=== PATIENT | male | born 1940 | race Caucasian/White ===

== ENCOUNTER 2018-07-11 08:34 | Outpatient (CLI) | payer MEDICARE, OTHER, SELFPAY ==
[2018-07-11] VITALS (8 sets, daily range): BP systolic 95–139; BP diastolic 56–77; PULSE 53–61; RESP 16–18; TEMP 35.8; O2SAT 94–100
--- NOTE | 2018-07-11 08:44 | DI.RAD.S_ITS ---
PROCEDURE: PAIN C/T INTERLAMINAR INJECT INDICATIONS: SPINAL STENOSIS FINDINGS: Fluoroscopic spot filming was performed to verify placement of spinal needles at the C6-C7 level(s), as labeled on the films. Appropriate location(s) of the needle tip(s) was confirmed by injection of iodinated contrast. Dictated by: Johnnie Olvera M.D. on 07/11/2018 at 12:39 Approved by: Johnnie Olvera M.D. on 07/11/2018 at 12:47
[2018-07-11] MEDS: MIDAZOLAM 5 MG/5 ML VIAL IV (09:39)
[2018-07-11] MEDS: IOPAMIDOL 15 ML VIAL 3 ML INJ (09:49)
[2018-07-11] MEDS: LIDOCAINE 1% 20 ML INJ 5 ML INJ (09:49)
[2018-07-11] MEDS: DEXAMETHASONE 10 MG/ML VIAL 20 MG INJ (09:49)
--- NOTE | 2018-07-11 10:00 | P.PCN_ITS ---
Procedures Date/Time Date of procedure: 07/11/18 Time of procedure: 09:59 General Procedure description: PREOP DIAGNOSIS 1. CERVICAL STENOSIS, 2. CERVICAL HNP WITH UPPER EXTREMITY RADICULAR FEATURES, POST OP DIAGNOSIS 1. CERVICAL STENOSIS, 2. CERVICAL HNP WITH UPPER EXTREMITY RADICULAR FEATURES, PROCEDURES 1. FLUORSCOPICALLY GUIDED CONTRAST CONTROLLED INTERLAMINAR EPIDURAL STEROID INJECTION - C6/7 TL AVI PHYSICIAN: DO CHULA Coppola Harsh is referred by Dr. West for treatment of Cervical HNP with Upper Extremity Paresthesias. FINDINGS Cervical Stenosis due to disc deterioration and nerve root irritation and nerve root irritation DESCRIPTION OF PROCEDURE Fluoroscopically guided, contrast-controlled C6/7 translaminar epidural steroid injection with conscious sedation. Following denial of allergy and review of potential side effects and complications, including, but not necessarily limited to, infection, allergic reaction, local tissue breakdown, temporary as well as permanent nerve injury, s troke, paralysis, and possible , the patient indicated that patient understood and agreed to proceed. An informed consent document was signed by the patient, witnessed by a nurse, and placed in the patient's chart. Additionally, other treatment options including modalities, medications, and physical therapy were reviewed with the patient. After review of previous anaesthesic history and IV conscious sedation the patient was deemed safe to proceed with todays procedure with IV conscious sedation as ASA class II designation. Safety time-out was performed to confirm patient ID, procedure to be performed and site of procedure. IV sedation was accomplished with a combination of 2mg of Versed administered by the RN after DO order, titrated to patient comfort during the course of the procedure while the patient remained responsive to all verbal commands. In the prone position, following sterile prep and drape of the cervical region, the C6/7 translaminar space was identified fluoroscopically. The skin was anesthetized via a 25-gauge 1.5-inch needle with 1% lidocaine solution. At this point, a 25-gauge, 2.5-inch short bevel spinal needle was atraumatically introduced and advanced under fluoroscopic guidance into epidural space at the C6/7 translaminar space. Depth was confirmed on lateral view. Radiological data, including multiple fluoroscopic views of the cervical spine, reveal a spinal needle at the C6/7 translaminar space. Lateral views then show placement of the needle in the epidural space. Subsequent views show contrast material flowing superiorly and inferiorly in the epidural space. DSA fluoroscopy with live contrast injection, once again, confirmed no vascular or intrathecal uptake. At this point, using loss of resistance technique with saline and air, the epidural space was entered. Following negative aspiration, injection of approximately 1.5 cc of Isovue-200 with live fluoroscopy in the AP view confirmed epidural flow in the epidural space without vascular or intrathecal uptake observed. Subsequently, a test dose of 1 cc of 1% lidocaine solution was injected and patient was observed for two minutes without signs or symptoms of complications, including abdominal pain, shortness of breath, bilateral upper or lower extremity weakness, nausea and vomiting, prior to steroid injection. At this point, 2cc or 20mg of dexamethasone was then injected without incident. The patient tolerated the procedure well without signs or symptoms of complications prior to being transferred to the recovery area for further monitoring, The patient was then transferred to the recovery area where they were observed for an appropriate period of time after the injection. The patient reported a VAS score of 6 prior to the procedure and a post-procedure VAS of 0. Total Fluoroscopy Time: 37.0 seconds Total Conscious Time: 24min POST OP INSTRUCTIONS The patient was provided a Pain Log to continue to record their response to the target-specific procedure prior to follow-up visit with the referring provider. Additionally, specific post-injection care instructions and a contact number to our office were provided if concerns arise regarding possible complications associated with the procedure are suspected. Raul Osborn, Complications: none
--- NOTE | 2018-07-11 10:29 | PC.NURSE ---
Pt returned from post procedure at 1000 awake and alert, able to move from w/c to chair with standby assist. Resumed monitoring from Angelique RAMOS.
--- NOTE | 2018-07-12 15:55 | PC.NURSE ---
Follow up call made post Cervical TL Injection. Pt reports he slept well, woke up with a headache though and took some aleve for it. Otherwise he is doing well.
== END 2018-07-11 10:21 ==
LOC: RAD 08:42
PROVIDERS: PCP Family Medicine; Visit Provider Physical Medicine & Rehabilitation
DX: M48.02 Spinal stenosis, cervical region (principal); M50.223 Other cervical disc displacement at C6-C7 level
CPT/HCPCS: 62321; 99152; J1100; J2250

== ENCOUNTER → 2018-08-11 12:40 | Outpatient (CLI) | payer MEDICARE, OTHER, SELFPAY ==
--- NOTE | 2018-08-11 12:41 | DI.RAD.S_ITS ---
PROCEDURE: XR LUMBAR SPINE MIN 4V INDICATIONS: Eval TECHNIQUE: 5 views of the lumbar spine were acquired. COMPARISON: None. FINDINGS: Bones: No fracture or focal osseous destruction. Levocurvature centered about L2. Multilevel degenerative endplate sclerosis and spurring. Diffuse facet arthropathy. Straightening of the normal lumbar lordosis. Diffuse uniform multilevel narrowing of the lumbar disc spaces Soft tissues: Overlying bowel gas pattern is normal. No suspicious soft tissue calcifications. Scattered vascular consultations project in the aorta Oblique images: No pars defects. 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 Levoscoliosis. Dictated by: Johnnie Olvera M.D. on 08/11/2018 at 14:50 Approved by: Johnnie Olvera M.D. on 08/11/2018 at 14:52
== END ==
PROVIDERS: PCP Family Medicine; Visit Provider Physical Medicine & Rehabilitation
DX: M54.5 Low back pain (principal); M51.36 Other intervertebral disc degeneration, lumbar region; M48.061 Spinal stenosis, lumbar region without neurogenic claudication; M47.816 Spondylosis without myelopathy or radiculopathy, lumbar region; M41.86 Other forms of scoliosis, lumbar region; M48.02 Spinal stenosis, cervical region; M47.22 Other spondylosis with radiculopathy, cervical region; M54.81 Occipital neuralgia; Q89.3 Situs inversus; M47.817 Spondylosis without myelopathy or radiculopathy, lumbosacral region
CPT/HCPCS: 72110; 99214

== ENCOUNTER 2019-01-28 21:39 | Emergency (ER) | payer MEDICARE, OTHER, SELFPAY ==
[2019-01-28 21:39] VITALS: BP 149/73; PULSE 67; RESP 21; TEMP 36.7; O2SAT 96; BMI 25.6
--- NOTE | 2019-01-28 21:49 | DI.US.S_ITS ---
PROCEDURE: US RETRO PERITONEAL LIMITED INDICATIONS: LLQ PAIN RADIATING TO BACK TECHNIQUE: Real-time scanning was performed of the retroperitoneal organs, with image documentation. COMPARISON: None. FINDINGS: Kidneys: Kidneys are normal in size. Right kidney measures 9.3 cm long; left kidney measures 10.6 cm long. Right renal cortical thickness is 1.0 cm; left renal cortical thickness is 1.6 cm. 1.2 cm simple cyst noted in the left kidney. No solid masses or nephrolithiasis. Mild left-sided hydronephrosis. Pancreas: Visualized portions of the pancreas are sonographically normal. Aorta: Visualized aorta is normal in caliber at 3 cm or less. Iliac arteries: Proximal common iliac arteries are normal in caliber at 2.5 cm or less. IVC: Intrahepatic inferior vena cava is patent. Miscellaneous: No free abdominal fluid. The appendix is not identified and cannot be evaluated. IMPRESSION: 1. No abdominal aortic aneurysm. 2. Mild left-sided hydronephrosis. Dictated by: Cathy Jean MD, PhD on 01/29/2019 at 8:47 Approved by: Cathy Jean MD, PhD on 01/29/2019 at 8:56
[2019-01-28 22:02] LABS: Add Manual Diff / Slide Review NO; Basophils Absolute Auto 100 /uL (0-100); Basophils Percent Auto 0.8 % (0-2); Eosinophils Absolute Auto 200 /uL (0-450); Eosinophils Percent Auto 2.4 % (2-4); Hematocrit 45.9 % (41-53); Hemoglobin 15.6 g/dL (13.5-17.5); Lymphocytes Absolute Auto 2100 /uL (1100-4500); Lymphocytes Percent Auto 30.8 % (25-40); Mean Corpuscular HGB Conc 34.1 % (30-36); Mean Corpuscular Hemoglobin 32.1 PG (26-34); Mean Corpuscular Volume 94.4 fL (80-100); Monocytes Absolute Auto 700 /uL (0-900); Neutrophils Absolute Auto 3900 /uL (1500-7000); Platelet Count 202 X10^3/uL (150-400); Red Blood Cell Count 4.86 X10^6/uL (4.5-5.9); Red Cell Distribution Width 13.8 % (11.6-14.8); White Blood Cell Count 6.9 X10^3/uL (4.5-11.0)
[2019-01-28 22:06] LABS: Prothrombin Time 11.4 SECONDS (10.1-12.7)
[2019-01-28 22:10] LABS: Blood Urea Nitrogen 28 mg/dL (9-20); Calcium 8.8 mg/dL (8.4-10.2); Carbon Dioxide 27 mmol/L (22-32); Chloride 105 mmol/L (98-107); Estimated Glomerular Filt Rate > 60.0 mL/min (>60); Glucose 114 mg/dL (80-110); HEMOLYSIS 26 (0-50); Lactate (Lactic Acid) 1.4 mmol/L (0.7-2.1); Magnesium 2.1 mg/dL (1.6-2.3); Potassium 4.4 mmol/L (3.4-5.1); Sodium 138 mmol/L (137-145)
--- NOTE | 2019-01-28 22:29 | ED.ABDPAIN ---
HPI - Abdominal Pain General Chief Complaint: Abdominal Pain Stated Complaint: ABD Pain Time Seen by Provider: 01/28/19 21:41 Source: patient and EMS Mode of arrival: EMS Limitations: no limitations History of Present Illness HPI narrative: 78-year-old male former smoker with history of thoracic aneurysm repair presents with a chief complaint of severe left lower quadrant pain and some radiation to his back. He denies fever chills nor nausea or vomiting. He denies chest pain, shortness of breath or near syncope. He denies any injury. He denies any provocation or palliation. He has had some difficulty producing a urine stream. MD complaint: abdominal pain Onset (ago): hour(s) Pain Consistency: intermittent Location: LLQ and L flank Severity: moderate Quality: stabbing and aching Relieving factors: nothing Exacerbating factors: nothing Associated symptoms: denies other symptoms Related Data Home Medications Medication Instructions Recorded Confirmed atorvastatin 80 mg tablet PO #90 tab 06/22/18 11/20/18 latanoprost 0.005 % eye drops OPHTHALMIC (EYE) #7 ml 06/22/18 11/20/18 losartan 50 mg tablet PO #90 tab 06/22/18 11/20/18 metoprolol tartrate 25 mg tablet PO #180 tab 06/22/18 11/20/18 Previous Rx's Medication Instructions Recorded celecoxib 200 mg capsule 200 mg PO DAILY #90 cap 11/20/18 tamsulosin [Flomax] 0.4 mg PO DAILY #10 cap 01/29/19 Allergies Allergy/AdvReac Type Severity Reaction Status Date / Time silver sulfadiazine Allergy Unknown Verified 08/11/18 11:47 [From Allyssa] Review of Systems Constitutional Constitutional: Denies chills, Denies fatigue, Denies fever(s), Denies frequent falls, Denies lethargy and Denies weakness Eyes Eyes: Denies change in vision, Denies eye discharge, Denies irritation and Denies loss of vision ENT Ears, Nose, Mouth, and Throat: Denies change in voice, Denies dizziness, Denies neck pain, Denies sore throat and Denies throat swelling Cardiovascular Cardiovascular: Denies chest pain, Denies irregular heart rhythm, Denies lightheadedness, Denies palpitations, Denies dyspnea, Denies dyspnea on exertion and Denies orthopnea Respiratory Respiratory: Denies cough, Denies dyspnea, Denies dyspnea on exertion and Denies wheezing Gastrointestinal Gastrointestinal: Reports abdominal pain, Denies change in bowel habits, Denies diarrhea, Denies nausea and Denies vomiting Genitourinary Genitourinary: Denies hematuria, Denies flank pain, Denies urinary incontinence and Denies urinary urgency Musculoskeletal Musculoskeletal: Denies back pain, Denies muscle weakness, Denies neck pain, Denies numbness and Denies tingling Integumentary/Breasts Skin/Breast: Denies pruritus, Denies erythema, Denies rash and Denies wounds Neurologic Neurologic: Denies behavioral changes, Denies confusion, Denies dizziness, Denies frequent falls, Denies loss of vision, Denies numbness, Denies tingling and Denies weakness Psychiatric Psychiatric: Denies anxiety, Denies behavioral changes, Denies confusion, Denies depression, Denies homicidal ideation and Denies suicidal ideation Endocrine Endocrine: Denies fatigue, Denies flushing and Denies palpitations Hematologic/Lymphatic Hematologic/Lymphatic: Denies easy bruising Allergic/Immunologic Allergic/Immunologic: Denies urticaria, Denies throat swelling and Denies wheezing [facility] Social History Smoking Status: Former smoker Social History Smoking Status: Former smoker Exam Narrative Exam Narrative: GENERAL: [78] year old patient appears stated age. Well-nourished, well-developed patient, in mild distress. HEAD: Atraumatic. Normocephalic. EYES: Pupils equal round and reactive. Extraocular motions intact. No scleral icterus. No injection or drainage. ENT: Nose without bleeding, purulent drainage. Throat without erythema, tonsillar hypertrophy or exudate. Airway patent. NECK: Trachea midline. Non tender CARDIOVASCULAR: Regular rate and rhythm without murmurs, gallops, or rubs. RESPIRATORY: Clear to auscultation. Breath sounds equal bilaterally. No wheezes, rales, or rhonchi. GASTROINTESTINAL: Abdomen soft, mild left lower quadrant pain, nondistended. No rebound. No Rovsing's or McBurney's. Negative heel tap. EXTREMITIES: No edema or joint tenderness. BACK: Nontender without deformity or crepitance. No flank tenderness. NEURO: AOx3. SKIN: No rash or erythema of visible areas Initial Vital Signs Initial Vital Signs: Vital Signs Temperature 98.0 F 01/28/19 21:39 Pulse Rate 67 01/28/19 21:39 Respiratory Rate 21 01/28/19 21:39 Blood Pressure 149/73 H 01/28/19 21:39 Pulse Oximetry 96 01/28/19 21:39 Course Orders Ordered: ED Orders 01/28/19 21:49 US retroperitoneal limited Stat 01/28/19 21:50 Basic Metabolic Panel Stat Complete Blood Count AUTO DIFF Stat Lactate (Lactic Acid) Stat Magnesium Stat Prothrombin Time INR Stat 01/28/19 23:05 CT abdomen pelvis w con Stat 01/28/19 23:09 Urinalysis and Microscopic Stat Discontinued Medications Tamsulosin HCl (Flomax) 0.4 mg PO NOW ONE Stop: 01/29/19 00:04 Reevaluation(s) Reevaluation #1: Patient has complete resolution of symptoms after above-stated therapies Vital Signs Vital signs: Vital Signs - 8 hr 01/28/19 21:39 01/28/19 23:47 Temperature 98.0 F 98.0 F Pulse Rate 67 62 Respiratory Rate 21 16 Blood Pressure 149/73 H Blood Pressure [Right Arm] 146/63 H Pulse Oximetry 96 96 MDM - Abdominal Pain Medical Records Attestation: I reviewed the patient's medical records. Lab Data Attestation: I reviewed the patient's lab results. Result diagrams: 01/28/19 21:50 01/28/19 21:50 Labs: Lab Results 01/28/19 01/28/19 01/28/19 Range/Units 21:50 21:50 21:50 WBC 6.9 (4.5-11.0) X10^3/uL RBC 4.86 (4.5-5.9) X10^6/uL Hgb 15.6 (13.5-17.5) g/dL Hct 45.9 (41-53) % MCV 94.4 (80-100) fL MCH 32.1 (26-34) PG MCHC 34.1 (30-36) % RDW 13.8 (11.6-14.8) % Plt Count 202 (150-400) X10^3/uL Neut % (Auto) 56.0 (50-75) % Lymph % (Auto) 30.8 (25-40) % [place] % (Auto) 10.0 (3-14) % Eos % (Auto) 2.4 (2-4) % Baso % (Auto) 0.8 (0-2) % Neut # (Auto) 3900 (9854-2788) /uL Lymph # (Auto) 2100 (4876-9972) /uL [place] # (Auto) 700 (0-900) /uL Eos # (Auto) 200 (0-450) /uL Baso # (Auto) 100 (0-100) /uL PT 11.4 (10.1-12.7) SECONDS INR 1.0 (0.9-1.3) Sodium 138 (137-145) mmol/L Potassium 4.4 (3.4-5.1) mmol/L Chloride 105 (98-107) mmol/L Carbon Dioxide 27 (22-32) mmol/L BUN 28 H (9-20) mg/dL Creatinine 1.00 (0.66-1.25) mg/dL Estimated GFR > 60.0 (>60) mL/min BUN/Creatinine Ratio 28.0 H (6-22) Glucose 114 H (80-110) mg/dL Lactate (0.7-2.1) mmol/L Calcium 8.8 (8.4-10.2) mg/dL Magnesium 2.1 (1.6-2.3) mg/dL Urine Color Urine Appearance Urine pH (4.5-8.0) Ur Specific [employer] (1.000-1.035) Urine Protein (Negative) Urine Glucose (UA) (Negative) g/dL Urine Ketones (NEGATIVE) Urine Occult Blood (Negative) Urine Nitrate (Negative) Urine Bilirubin (NEGATIVE) Urine Urobilinogen (0.2) E.U./dL Ur Leukocyte Esterase (NEGATIVE) Urine RBC (0-5/HPF) Urine WBC (0-5/HPF) Urine Bacteria (None) Ur Culture Indicated? 01/28/19 01/28/19 Range/Units 21:50 23:09 WBC (4.5-11.0) X10^3/uL RBC (4.5-5.9) X10^6/uL Hgb (13.5-17.5) g/dL Hct (41-53) % MCV (80-100) fL MCH (26-34) PG MCHC (30-36) % RDW (11.6-14.8) % Plt Count (150-400) X10^3/uL Neut % (Auto) (50-75) % Lymph % (Auto) (25-40) % [place] % (Auto) (3-14) % Eos % (Auto) (2-4) % Baso % (Auto) (0-2) % Neut # (Auto) (7239-8197) /uL Lymph # (Auto) (3327-2400) /uL [place] # (Auto) (0-900) /uL Eos # (Auto) (0-450) /uL Baso # (Auto) (0-100) /uL PT (10.1-12.7) SECONDS INR (0.9-1.3) Sodium (137-145) mmol/L Potassium (3.4-5.1) mmol/L Chloride (98-107) mmol/L Carbon Dioxide (22-32) mmol/L BUN (9-20) mg/dL Creatinine (0.66-1.25) mg/dL Estimated GFR (>60) mL/min BUN/Creatinine Ratio (6-22) Glucose (80-110) mg/dL Lactate 1.4 (0.7-2.1) mmol/L Calcium (8.4-10.2) mg/dL Magnesium (1.6-2.3) mg/dL Urine Color Yellow Urine Appearance Clear Urine pH 6.0 (4.5-8.0) Ur Specific [employer] 1.010 (1.000-1.035) Urine Protein Negative (Negative) Urine Glucose (UA) Negative (Negative) g/dL Urine Ketones Negative (NEGATIVE) Urine Occult Blood 3+ H (Negative) Urine Nitrate Negative (Negative) Urine Bilirubin Negative (NEGATIVE) Urine Urobilinogen 0.2 (0.2) E.U./dL Ur Leukocyte Esterase Negative (NEGATIVE) Urine RBC 5-10/hpf H (0-5/HPF) Urine WBC None seen (0-5/HPF) Urine Bacteria None seen (None) Ur Culture Indicated? Cult not indicated Imaging Data CT scan - abdomen: Radiologist's impression: Obstructing left UVJ 4 mm stone with mild left hydro Discharge Plan Departure Patient Disposition: Home Clinical Impression: Kidney stone on left side Instructions: Kidney Stones -- Adult Activity Restrictions/Additional Instructions: *You have been diagnosed with [4 mm left-sided kidney stone] *What to do: *Take medications as directed: a prescription for Flomax was electronically transmitted to [facility] in [place] at your request *Follow up with your primary care provider in 2-3 days, call for an appointment. Let them know you were seen in the Emergency Department and that we ask that you be seen in follow up *Return to ER if you should have any new, worsening or concerning symptoms Prescriptions: New tamsulosin [Flomax] 0.4 mg capsule 0.4 mg PO DAILY Qty: 10 RF: 0 No Action atorvastatin 80 mg tablet PO Qty: 90 RF: 0 losartan 50 mg tablet PO Qty: 90 RF: 0 metoprolol tartrate 25 mg tablet PO Qty: 180 RF: 0 latanoprost 0.005 % drops ophthalmic (eye) Qty: 7 RF: 0 celecoxib [Celebrex] 200 mg capsule 200 mg PO DAILY Qty: 90 RF: 2 Referrals: Jamilah West DO [Primary Care Provider] -
--- NOTE | 2019-01-28 23:05 | DI.CT.S_ITS ---
PROCEDURE: CT ABDOMEN PELVIS W CON INDICATIONS: severe LLQ pain TECHNIQUE: After the administration of intravenous contrast, 5 mm thick sections acquired from the diaphragm to the symphysis. 5 mm coronal and sagittal reformats were acquired. For radiation dose reduction, the following was used: automated exposure control, adjustment of mA and/or kV according to patient size. COMPARISON: CT pulmonary angiogram 03/30/2018, CT abdomen and pelvis 08/07/2015. FINDINGS: Image quality: Excellent. ABDOMEN: Lung bases: Lung bases are clear. Findings of situs inversus. No pericardial effusion. Solid organs: Liver is left-sided. No suspicious focal lesion. Multiple small hepatic cysts a similar to 2016. Gallbladder is normal. Biliary system is non dilated. Pancreas enhances normally. Spleen is normal in size and enhancement. Punctate splenic granuloma. Small splenule. No adrenal nodules. Left UVJ kidney stone measuring 4 mm with mild hydroureteronephrosis. Question of left ureterocele or pseudoureterocele. Additionally there is a 4 mm left kidney stone and 3 mm right kidney stone which are nonobstructing. Peritoneum and bowel: Calcifications in the region of the gastric cardia likely due to prior hernia repair. Small retrocardiac. Bowel loops demonstrate normal wall thickness and caliber. No free fluid or air. Nodes and vessels: No retroperitoneal or mesenteric adenopathy by size criteria. Aorta and inferior vena cava are normal in size. Moderate calcified atherosclerotic plaque of the abdominal aorta. Miscellaneous: No ventral hernias. PELVIS: Genitourinary: Bladder is unremarkable. Miscellaneous: No inguinal hernias or adenopathy. Left groin surgical clips from prior hernia repair. Bones: No suspicious bony lesions. Mild scoliosis. Moderate DDD. No vertebral body compression fractures. IMPRESSION: 1. A 4 mm obstructing calculus at the left UVJ with mild hydroureteronephrosis. 2. Additional nonobstructing kidney stones bilaterally. 3. Situs inversus. This report is concordant with the overnight preliminary interpretation. Dictated by: Jake Santo M.D. on 01/29/2019 at 8:02 Approved by: Jake Santo M.D. on 01/29/2019 at 8:14
[2019-01-28 23:23] LABS: Bacteria Urine None Seen; WBC Urine None Seen (0-5/HPF)
[2019-01-28 23:24] LABS: Appearance Urine UA CLEAR; Bilirubin Urine UA NEGATIVE (NEGATIVE); Color Urine UA YELLOW; Glucose Urine UA NEGATIVE (Negative); Ketones Urine UA NEGATIVE (NEGATIVE); Leukocyte Esterase Urine UA NEGATIVE (NEGATIVE); Nitrite Urine UA NEGATIVE (Negative); Occult Blood Urine UA 3+ (Negative); Protein Urine UA NEGATIVE (Negative); Urobilinogen Urine UA 0.2 E.U./dL (0.2)
[2019-01-28 23:38] LABS: Culture Indicated Urine Cult Not Indicated; RBC Urine 5-10/HPF (0-5/HPF)
[2019-01-28 23:47] VITALS: BP 146/63; PULSE 62; RESP 16; TEMP 36.7; O2SAT 96
--- NOTE | 2019-01-28 23:47 | PC.NURSE ---
Assuming care of patient as of 2329. Patient alert and oriented x4, sitting up on stretcher speaking with son. Pt reports pain is intermittent and he currently is pain free 0/10 and not nauseated. Denies needs at this time. Awaiting CT results.
[2019-01-29] MEDS: TAMSULOSIN 0.4 MG CAPSULE PO (00:10)
[2019-01-29 00:25] VITALS: BP 139/73; PULSE 70; RESP 16; O2SAT 98
--- NOTE | 2019-01-29 00:27 | PC.NURSE ---
Patient given urinal and strainer and urine cup. Instructed on straining urine and to try to save the stone if possible to take to PCP. Verbalizes understanding. Pt ambulatory from ED with steady gait, pain free.
== END 2019-01-29 00:27 | disposition home or self-care (01) ==
PROVIDERS: Emergency Provider Emergency Medicine; PCP Family Medicine
DX: N20.0 Calculus of kidney (principal)
CPT/HCPCS: 36415; 74177; 76775; 80048; 81001; 83605; 83735; 85025; 85610; 99283; 99284; Q9967

== ENCOUNTER 2019-10-06 03:56 | Emergency (ER) | payer MEDICARE, OTHER, SELFPAY ==
[2019-10-06 04:02] VITALS: BP 142/68; PULSE 92; RESP 22; TEMP 37.6; O2SAT 96; BMI 25.2
--- NOTE | 2019-10-06 04:04 | DI.RAD.S_ITS ---
PROCEDURE: XR ACUTE ABDOMEN SERIES INDICATIONS: Abdominal pain TECHNIQUE: One view chest and two views of the abdomen were acquired. COMPARISON: [facility], CT, CT CHEST ABD PEL W CON, 10/06/2019, 6:01. FINDINGS: Surgical changes and devices: Median sternotomy changes are present. 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 The gastric bubble is seen within the right upper quadrant. The liver appears to be present within the left upper quadrant. The lungs are well aerated. No definite pulmonary consolidation is evident. The heart is borderline enlarged. Abdomen: Multiple air filled the bowel loops are seen within the abdomen. However, the air filled bowel loops that are felt to represent small bowel do not measure greater than 3 cm in diameter. Air and stool are seen within the colon. No suspicious calcifications. Visualized solid organ contours appear normal. Bones: No suspicious bony lesions. IMPRESSION: 1. Nonspecific bowel gas pattern without evidence of obstruction. 2. Situs inversus. 3. No acute cardiopulmonary process is appreciated. Dictated by: Geovani Ba M.D. on 10/06/2019 at 8:46 Approved by: Geovani Ba M.D. on 10/06/2019 at 8:50
--- NOTE | 2019-10-06 04:06 | ED.ABDPAIN ---
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 He states that it is becoming more intense in severity and duration. He states it is worse when he moves and improves with rest. He is nauseated and has decreased appetite but denies any vomiting. He states he had a bowel movement earlier it was not significantly abnormal. He has been passing gas without trouble. He denies any trouble urinating. He states he has felt chills and had subjective fever. He denies runny nose, sore throat or cough. Denies chest pain or shortness of breath. MD complaint: abdominal pain Onset (ago): day(s) Pain Consistency: intermittent Location: [facility] Severity: severe Quality: cramping and aching Relieving factors: rest Exacerbating factors: movement Related Data Home Medications Medication Instructions Recorded Confirmed atorvastatin 80 mg tablet PO #90 tab 06/22/18 11/20/18 latanoprost 0.005 % eye drops OPHTHALMIC (EYE) #7 ml 06/22/18 11/20/18 losartan 50 mg tablet PO #90 tab 06/22/18 11/20/18 metoprolol tartrate 25 mg tablet PO #180 tab 06/22/18 11/20/18 Previous Rx's Medication Instructions Recorded celecoxib 200 mg capsule 200 mg PO DAILY #90 cap 11/20/18 tamsulosin [Flomax] 0.4 mg PO DAILY #10 cap 01/29/19 Allergies Allergy/AdvReac Type Severity Reaction Status Date / Time silver sulfadiazine Allergy Unknown Verified 08/11/18 11:47 [From Allyssa] Review of Systems Constitutional Constitutional: Reports chills, Reports fatigue, Denies fever(s), Denies frequent falls, Denies lethargy and Denies weakness Eyes Eyes: Denies change in vision, Denies eye discharge, Denies irritation and Denies loss of vision ENT Ears, Nose, Mouth, and Throat: Denies change in voice, Denies dizziness, Denies neck pain, Denies sore throat and Denies throat swelling Cardiovascular Cardiovascular: Denies chest pain, Denies irregular heart rhythm, Denies lightheadedness, Denies palpitations, Denies dyspnea, Denies dyspnea on exertion and Denies orthopnea Respiratory Respiratory: Denies cough, Denies dyspnea, Denies dyspnea on exertion and Denies wheezing Gastrointestinal Gastrointestinal: Denies abdominal pain, Denies change in bowel habits, Denies diarrhea, Reports nausea and Denies vomiting Musculoskeletal Musculoskeletal: Denies neck pain and Denies numbness Integumentary/Breasts Skin/Breast: Denies pruritus, Denies erythema, Denies rash and Denies wounds Neurologic Neurologic: Denies behavioral changes, Denies confusion, Denies dizziness, Denies frequent falls, Denies loss of vision, Denies numbness and Denies weakness Psychiatric Psychiatric: Denies anxiety, Denies behavioral changes, Denies confusion, Denies depression, Denies homicidal ideation and Denies suicidal ideation Endocrine Endocrine: Reports fatigue, Denies flushing and Denies palpitations Hematologic/Lymphatic Hematologic/Lymphatic: Denies easy bruising Allergic/Immunologic Allergic/Immunologic: Denies urticaria, Denies throat swelling and Denies wheezing Patient History Social History Smoking Status: Former smoker Smoking Status: Former smoker alcohol intake frequency: a few times a week Substance Use Type: does not use Exam Narrative Exam Narrative: GENERAL: [79] year old patient appears stated age. Well-nourished, well-developed patient, in moderate distress, holding an emesis bag HEAD: Atraumatic. Normocephalic. EYES: Pupils equal round and reactive. Extraocular motions intact. No scleral icterus. No injection or drainage. ENT: Nose without bleeding, purulent drainage. Throat without erythema, tonsillar hypertrophy or exudate. Airway patent. NECK: Trachea midline. Non tender CARDIOVASCULAR: Regular rate and rhythm without murmurs, gallops, or rubs. RESPIRATORY: Clear to auscultation. Breath sounds equal bilaterally. No wheezes, rales, or rhonchi. GASTROINTESTINAL: Abdomen soft, general tenderness, distended, decreased BS EXTREMITIES: No edema or joint tenderness. BACK: Nontender without deformity or crepitance. No flank tenderness. NEURO: AOx3. SKIN: No rash or erythema of visible areas Initial Vital Signs Initial Vital Signs: Vital Signs Temperature 99.6 F 10/06/19 04:02 Pulse Rate 92 H 10/06/19 04:02 Respiratory Rate 22 10/06/19 04:02 Blood Pressure 142/68 H 10/06/19 04:02 Pulse Oximetry 96 10/06/19 04:02 Course Orders Ordered: Discontinued Medications Hydromorphone HCl (Dilaudid) 0.5 mg IV NOW ONE Stop: 10/06/19 04:02 Last Admin: 10/06/19 04:12 Dose: 0.5 mg Documented by: FE Hydromorphone HCl (Dilaudid) 0.5 mg IV NOW ONE Stop: 10/06/19 06:33 Last Admin: 10/06/19 06:36 Dose: 0.5 mg Documented by: FE Sodium Chloride (Normal Saline 0.9%) 2,328 mls @ 776 mls/hr 30 ml/kg infuse over 3 hr (2328 ml) IV NOW ONE Stop: 10/06/19 07:04 Last Infusion: 10/06/19 07:39 Dose: 0 mls/hr Documented by: Admin: 10/06/19 04:12 Dose: 776 mls/hr Documented by: FE Ondansetron HCl (Zofran) 4 mg IV Q4HR PRN PRN Reason: Nausea And Vomiting Last Admin: 10/06/19 04:12 Dose: 4 mg Documented by: FE Simethicone (Mylicon) 80 mg PO QID PRN PRN Reason: Flatulence Last Admin: 10/06/19 07:39 Dose: 80 mg Documented by: LASHANDA Vital Signs Vital signs: Vital Signs - 8 hr 10/06/19 04:02 Temperature 99.6 F Pulse Rate 92 H Respiratory Rate 22 Blood Pressure 142/68 H Pulse Oximetry 96 MDM - Abdominal Pain Lab Data Result diagrams: 10/06/19 04:35 10/06/19 04:35 Labs: Lab Results 10/06/19 10/06/19 10/06/19 Range/Units 04:20 04:20 04:35 WBC 9.7 (4.5-11.0) X10^3/uL RBC 4.48 L (4.5-5.9) X10^6/uL Hgb 14.2 (13.5-17.5) g/dL Hct 42.4 (41-53) % MCV 94.7 (80-100) fL MCH 31.7 (26-34) PG MCHC 33.5 (30-36) % RDW 13.1 (11.6-14.8) % Plt Count 218 (150-400) X10^3/uL Neut % (Auto) 84.3 H (50-75) % Lymph % (Auto) 4.7 L (25-40) % [place] % (Auto) 10.0 (3-14) % Eos % (Auto) 0.6 L (2-4) % Baso % (Auto) 0.4 (0-2) % Neut # (Auto) 8200 H (8206-4874) /uL Lymph # (Auto) 500 L (0822-0419) /uL [place] # (Auto) 1000 H (0-900) /uL Eos # (Auto) 100 (0-450) /uL Baso # (Auto) 0 (0-100) /uL PT 14.1 H (10.1-12.7) SECONDS INR 1.2 (0.9-1.3) Sodium (137-145) mmol/L Potassium (3.4-5.1) mmol/L Chloride (98-107) mmol/L Carbon Dioxide (22-32) mmol/L BUN (9-20) mg/dL Creatinine (0.66-1.25) mg/dL Estimated GFR (>60) mL/min BUN/Creatinine Ratio (6-22) Glucose (80-110) mg/dL Lactate 1.1 (0.7-2.1) mmol/L Calcium (8.4-10.2) mg/dL Total Bilirubin (0.2-1.3) mg/dL AST (17-59) IU/L ALT (<50) IU/L Alkaline Phosphatase (38-126) U/L Total Creatine Kinase (55-170) U/L CK-MB (CK-2) CK-MB (CK-2) Rel Index Troponin I (0.01-0.034) ng/mL Total Protein (6.3-8.2) g/dL Albumin (3.5-5.0) g/dL Globulin (1.7-4.1) g/dL Albumin/Globulin Ratio (1.0-2.8) Procalcitonin (<0.5) ng/mL 10/06/19 10/06/19 10/06/19 Range/Units 04:35 04:35 04:35 WBC (4.5-11.0) X10^3/uL RBC (4.5-5.9) X10^6/uL Hgb (13.5-17.5) g/dL Hct (41-53) % MCV (80-100) fL MCH (26-34) PG MCHC (30-36) % RDW (11.6-14.8) % Plt Count (150-400) X10^3/uL Neut % (Auto) (50-75) % Lymph % (Auto) (25-40) % [place] % (Auto) (3-14) % Eos % (Auto) (2-4) % Baso % (Auto) (0-2) % Neut # (Auto) (8736-0506) /uL Lymph # (Auto) (7984-0312) /uL [place] # (Auto) (0-900) /uL Eos # (Auto) (0-450) /uL Baso # (Auto) (0-100) /uL PT (10.1-12.7) SECONDS INR (0.9-1.3) Sodium 136 L (137-145) mmol/L Potassium 3.8 (3.4-5.1) mmol/L Chloride 107 (98-107) mmol/L Carbon Dioxide 20 L (22-32) mmol/L BUN 27 H (9-20) mg/dL Creatinine 0.99 (0.66-1.25) mg/dL Estimated GFR > 60.0 (>60) mL/min BUN/Creatinine Ratio 27.3 H (6-22) Glucose 139 H (80-110) mg/dL Lactate (0.7-2.1) mmol/L Calcium 8.6 (8.4-10.2) mg/dL Total Bilirubin 1.4 H (0.2-1.3) mg/dL AST 25 (17-59) IU/L ALT 19 (<50) IU/L Alkaline Phosphatase 77 (38-126) U/L Total Creatine Kinase 79 (55-170) U/L CK-MB (CK-2) TNP CK-MB (CK-2) Rel Index TNP Troponin I < 0.012 (0.01-0.034) ng/mL Total Protein 7.0 (6.3-8.2) g/dL Albumin 3.8 (3.5-5.0) g/dL Globulin 3.2 (1.7-4.1) g/dL Albumin/Globulin Ratio 1.2 (1.0-2.8) Procalcitonin 0.05 (<0.5) ng/mL Imaging Data Abdominal x-ray: Attestation: I personally reviewed and interpreted this imaging study as follows: My Impression: Non specific bowel gas pattern Radiologist's Impression: Harsh Galeana 79 M [address] [address] XRay Report Signed Patient: Harsh Galeana MMR#: [id number] : 9Acct:[id number] Age/Sex: 79 / MDate of Service: 10/06/19 Loc: ED Accession Number: [id number] Procedure: XR acute abdomen series Ordering Provider: Kostas Purvis D.O. PROCEDURE: XR ACUTE ABDOMEN SERIES INDICATIONS: Abdominal pain TECHNIQUE: One view chest and two views of the abdomen were acquired. COMPARISON: [facility], CT, CT CHEST ABD PEL W CON, 10/06/2019, 6:01. FINDINGS: Surgical changes and devices: Median sternotomy changes are present. 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 The gastric bubble is seen within the right upper quadrant. The liver appears to be present within the left upper quadrant. The lungs are well aerated. No definite pulmonary consolidation is evident. The heart is borderline enlarged. Abdomen: Multiple air filled the bowel loops are seen within the abdomen. However, the air filled bowel loops that are felt to represent small bowel do not measure greater than 3 cm in diameter. Air and stool are seen within the colon. No suspicious calcifications. Visualized solid organ contours appear normal. Bones: No suspicious bony lesions. IMPRESSION: 1. Nonspecific bowel gas pattern without evidence of obstruction. 2. Situs inversus. 3. No acute cardiopulmonary process is appreciated. Dictated by: Geovani Ba M.D. on 10/06/2019 at 8:46 Approved by: Geovani Ba M.D. on 10/06/2019 at 8:50 CT scan - abdomen/pelvis: Radiologist's Impression: Chart Viewer Diagnostics DATE TYPE STATUS REF RANGE/AUTHOR Hx 10/06/19 04:28 Geovani Ba 10/06/19 04:04 Mejia,Geovani 01/28/19 23:05 Ezio Santon 01/28/19 21:49 TedCathy 08/11/18 12:41 OlveraJohnnie 07/11/18 08:44 Johnnie Olvera Charles M 79, M0 1940 DEP ER, [facility] ED 182.88cm 84.5kg BMI: 25.3kg/m? Abdominal Pain Search Chart No Data to Display ONSET 10/06/19 07:51 Harsh Galeana 79 M 1940 [place] [address] CT Scan Report Signed Patient: Harsh Galeana MMR#: [id number] : 9Acct:[id number] Age/Sex: 79 / MDate of Service: 10/06/19 Loc: ED Accession Number: [id number] Procedure: CT chest abd pel w con Ordering Provider: Kostas Purvis D.O. PROCEDURE: CT CHEST ABD PEL W CON INDICATIONS: severe abdominal pain TECHNIQUE: After the administration of oral and intravenous contrast, 5 mm thick sections acquired from the lung apices to the symphysis. 5 mm coronal and sagittal reformats were performed, with additional 7 mm coronal MIP reformats through the lungs. For radiation dose reduction, the following was used: automated exposure control, adjustment of mA and/or kV according to patient size. COMPARISON: [facility], CR, XR ACUTE ABDOMEN SERIES, 10/06/2019, 4:13. [facility], CT, CT ABDOMEN PELVIS W CON, 01/28/2019, 23:10. [facility], CT, CT ANGIO CHEST, 03/30/2018, 12:43. [facility], CT, CT ABD PELVIS W CON, 08/07/2015, 11:45. [facility], CT, THORAX WITH CONTRAST, 09/28/2013, 10:31. [facility], CT, ANGIOGRAPHY CHEST AND ABDOMEN, 05/16/2013, 18:19. [facility], CT, KUB - CT (PNL), 09/30/2011, 22:03. FINDINGS: Image quality: Diagnostic. CHEST: Lungs and pleura: There is a small left-sided pleural effusion with associated atelectasis. The degree of consolidation of the left lung is more pronounced at the left lung base. There is minimal atelectasis at the right lung base. Centrilobular emphysematous changes are noted. There is no lung mass or definite pulmonary nodule. Mediastinum: Dextrocardia with a right-sided aortic arch is present. Aneurysmal dilatation of the ascending thoracic aorta is identified measuring up to 4.8 cm in AP dimension, which is unchanged when compared to the previous exam. Aortic atherosclerosis is noted. No mediastinal mass or lymphadenopathy is evident. There is no hilar lymphadenopathy. The major airways are patent. The esophagus is grossly unremarkable. There is a moderate-sized hiatal hernia on the right. Chest wall and bones: No axillary or supraclavicular adenopathy by size criteria. Thyroid gland is not enlarged were adequately characterized on CT. Moderate multilevel degenerative changes of the spine are present. Median sternotomy changes are noted. No compression deformities of the thoracic spine are noted. 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 The liver is located on the left. The spleen is located on the right. The pancreatic head is located on the left. There are numerous subcentimeter foci of low attenuation identified within the liver, which are unchanged since the previous CT, but are not well characterized. These most likely represent hepatic cysts. The spleen and pancreas appear to be within normal limits. The adrenals are unremarkable. Bilateral nonobstructing renal calculi are present. The ureters are normal in course and caliber without intraluminal calculi present. The previously seen calculus at the left vesicoureteral junction has passed in the interim. There may be small parenchymal renal cysts. Peritoneum and bowel: There is a small hiatal hernia. The stomach is otherwise unremarkable. The stomach is noted to be positioned on the right. The small bowel loops are nondilated. A moderate amount of residual stool is identified within the colon. Colonic diverticulosis is identified without evidence of surrounding inflammation. No free fluid, loculated fluid collection or free air is appreciated. Nodes and vessels: No retroperitoneal or mesenteric adenopathy by size criteria. Aorta and inferior vena cava are normal in size. There is aortic and iliac artery atherosclerosis. Bones: No acute fracture or suspicious osseous lesion is evident. No compression deformities are identified. Moderate multilevel degenerative changes of the lumbar spine are present. There is levoconvex curvature of the lumbar spine, as well. PELVIS: Genitourinary: Bladder wall thickness is normal. Miscellaneous: No inguinal hernias or adenopathy. No free fluid or loculated fluid collection is identified. Bones: No suspicious bony lesions. No acute pelvic fractures are identified. There mild degenerative changes of the pelvic joints. IMPRESSION: 1. Situs inversus totalis. 2. Small left-sided pleural effusion with associated atelectasis. Please correlate clinically to exclude superimposed pneumonia. 3. Mild centrilobular emphysematous changes. 4. Nonobstructing bilateral renal calculi. No hydronephrosis or ureteral calculi. 5. Probable hepatic cysts, unchanged. 6. Aneurysmal dilatation of the ascending thoracic aorta appears unchanged. No evidence of dissection. 7. No bowel obstruction. 8. Colonic diverticulosis without diverticulitis. Note: The preliminary report provided by [employer] is concordant with the final report. Dictated by: Geovani Ba M.D. on 10/06/2019 at 9:01 Approved by: Geovani Ba M.D. on 10/06/2019 at 9:[address] [facility] Narrative Medical decision making narrative: Multiple etiologies for patient's symptoms considered including: [obstruction vs. infectious process vs. AAA vs. other] Patient's symptoms improved or duration of stay with above-stated therapies. Findings and discharge diagnosis discussed with patient/family followed by verbalization of understanding Return precautions discussed with patient/family whom verbalize understanding. Discharge Plan Departure Patient Disposition: Home Clinical Impression: Abdominal pain Qualifiers: Abdominal location: generalized Qualified Code(s): R10.84 - Generalized abdominal pain Discharge Date/Time: 10/06/19 08:20 Activity Restrictions/Additional Instructions: *You have been diagnosed with [acute generalized abdominal pain ] *What to do: *Take medications as directed: Simethicone can help with your gas *Follow up with your primary care provider in 2-3 days, call for an appointment. Let them know you were seen in the Emergency Department and that we ask that you be seen in follow up *Return to ER if you should have any new, worsening or concerning symptoms Prescriptions: No Action tamsulosin [Flomax] 0.4 mg capsule 0.4 mg PO DAILY Qty: 10 RF: 0 atorvastatin 80 mg tablet PO Qty: 90 RF: 0 losartan 50 mg tablet PO Qty: 90 RF: 0 metoprolol tartrate 25 mg tablet PO Qty: 180 RF: 0 latanoprost 0.005 % drops ophthalmic (eye) Qty: 7 RF: 0 celecoxib [Celebrex] 200 mg capsule 200 mg PO DAILY Qty: 90 RF: 2 Referrals: Jamilah West DO [Primary Care Provider] -
[2019-10-06] MEDS: ONDANSETRON 4 MG/2 ML INJ IV (04:12)
[2019-10-06] MEDS: SODIUM CHLORIDE 0.9% 2,328 ML 776 ML IV (04:12)
[2019-10-06] MEDS: HYDROMORPHONE 0.5 MG INJ IV ×2 (04:12→06:36)
--- NOTE | 2019-10-06 04:28 | DI.CT.S_ITS ---
PROCEDURE: CT CHEST ABD PEL W CON INDICATIONS: severe abdominal pain TECHNIQUE: After the administration of oral and intravenous contrast, 5 mm thick sections acquired from the lung apices to the symphysis. 5 mm coronal and sagittal reformats were performed, with additional 7 mm coronal MIP reformats through the lungs. For radiation dose reduction, the following was used: automated exposure control, adjustment of mA and/or kV according to patient size. COMPARISON: [facility], CR, XR ACUTE ABDOMEN SERIES, 10/06/2019, 4:13. [facility], CT, CT ABDOMEN PELVIS W CON, 01/28/2019, 23:10. [facility], CT, CT ANGIO CHEST, 03/30/2018, 12:43. [facility], CT, CT ABD PELVIS W CON, 08/07/2015, 11:45. [facility], CT, THORAX WITH CONTRAST, 09/28/2013, 10:31. [facility], CT, ANGIOGRAPHY CHEST AND ABDOMEN, 05/16/2013, 18:19. [facility], CT, KUB - CT (PNL), 09/30/2011, 22:03. FINDINGS: Image quality: Diagnostic. CHEST: Lungs and pleura: There is a small left-sided pleural effusion with associated atelectasis. The degree of consolidation of the left lung is more pronounced at the left lung base. There is minimal atelectasis at the right lung base. Centrilobular emphysematous changes are noted. There is no lung mass or definite pulmonary nodule. Mediastinum: Dextrocardia with a right-sided aortic arch is present. Aneurysmal dilatation of the ascending thoracic aorta is identified measuring up to 4.8 cm in AP dimension, which is unchanged when compared to the previous exam. Aortic atherosclerosis is noted. No mediastinal mass or lymphadenopathy is evident. There is no hilar lymphadenopathy. The major airways are patent. The esophagus is grossly unremarkable. There is a moderate-sized hiatal hernia on the right. Chest wall and bones: No axillary or supraclavicular adenopathy by size criteria. Thyroid gland is not enlarged were adequately characterized on CT. Moderate multilevel degenerative changes of the spine are present. Median sternotomy changes are noted. No compression deformities of the thoracic spine are noted. 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 The liver is located on the left. The spleen is located on the right. The pancreatic head is located on the left. There are numerous subcentimeter foci of low attenuation identified within the liver, which are unchanged since the previous CT, but are not well characterized. These most likely represent hepatic cysts. The spleen and pancreas appear to be within normal limits. The adrenals are unremarkable. Bilateral nonobstructing renal calculi are present. The ureters are normal in course and caliber without intraluminal calculi present. The previously seen calculus at the left vesicoureteral junction has passed in the interim. There may be small parenchymal renal cysts. Peritoneum and bowel: There is a small hiatal hernia. The stomach is otherwise unremarkable. The stomach is noted to be positioned on the right. The small bowel loops are nondilated. A moderate amount of residual stool is identified within the colon. Colonic diverticulosis is identified without evidence of surrounding inflammation. No free fluid, loculated fluid collection or free air is appreciated. Nodes and vessels: No retroperitoneal or mesenteric adenopathy by size criteria. Aorta and inferior vena cava are normal in size. There is aortic and iliac artery atherosclerosis. Bones: No acute fracture or suspicious osseous lesion is evident. No compression deformities are identified. Moderate multilevel degenerative changes of the lumbar spine are present. There is levoconvex curvature of the lumbar spine, as well. PELVIS: Genitourinary: Bladder wall thickness is normal. Miscellaneous: No inguinal hernias or adenopathy. No free fluid or loculated fluid collection is identified. Bones: No suspicious bony lesions. No acute pelvic fractures are identified. There mild degenerative changes of the pelvic joints. IMPRESSION: 1. Situs inversus totalis. 2. Small left-sided pleural effusion with associated atelectasis. Please correlate clinically to exclude superimposed pneumonia. 3. Mild centrilobular emphysematous changes. 4. Nonobstructing bilateral renal calculi. No hydronephrosis or ureteral calculi. 5. Probable hepatic cysts, unchanged. 6. Aneurysmal dilatation of the ascending thoracic aorta appears unchanged. No evidence of dissection. 7. No bowel obstruction. 8. Colonic diverticulosis without diverticulitis. Note: The preliminary report provided by [employer] is concordant with the final report. Dictated by: Geovani Ba M.D. on 10/06/2019 at 9:01 Approved by: Geovani Ba M.D. on 10/06/2019 at 9:09
[2019-10-06 04:36] LABS: INR 1.2 (0.9-1.3); Prothrombin Time 14.1 SECONDS (10.1-12.7)
[2019-10-06 04:40] LABS: Lactate (Lactic Acid) 1.1 mmol/L (0.7-2.1)
[2019-10-06 04:53] LABS: Add Manual Diff / Slide Review NO; Basophils Absolute Auto 0 /uL (0-100); Basophils Percent Auto 0.4 % (0-2); Eosinophils Absolute Auto 100 /uL (0-450); Eosinophils Percent Auto 0.6 % (2-4); Hematocrit 42.4 % (41-53); Hemoglobin 14.2 g/dL (13.5-17.5); Lymphocytes Absolute Auto 500 /uL (1100-4500); Lymphocytes Percent Auto 4.7 % (25-40); Mean Corpuscular HGB Conc 33.5 % (30-36); Mean Corpuscular Hemoglobin 31.7 PG (26-34); Mean Corpuscular Volume 94.7 fL (80-100); Monocytes Absolute Auto 1000 /uL (0-900); Neutrophils Absolute Auto 8200 /uL (1500-7000); Neutrophils Percent Auto 84.3 % (50-75); Platelet Count 218 X10^3/uL (150-400); Red Blood Cell Count 4.48 X10^6/uL (4.5-5.9); Red Cell Distribution Width 13.1 % (11.6-14.8); White Blood Cell Count 9.7 X10^3/uL (4.5-11.0)
[2019-10-06 04:59] LABS: Alanine Aminotransferase 19 IU/L (<50); Albumin 3.8 g/dL (3.5-5.0); Albumin Globulin Ratio 1.2 (1.0-2.8); Alkaline Phosphatase 77 U/L (38-126); Aspartate Aminotransferase 25 IU/L (17-59); BUN Creatinine Ratio 27.3 (6-22); Bilirubin Total 1.4 mg/dL (0.2-1.3); Blood Urea Nitrogen 27 mg/dL (9-20); Calcium 8.6 mg/dL (8.4-10.2); Carbon Dioxide 20 mmol/L (22-32); Chloride 107 mmol/L (98-107); Estimated Glomerular Filt Rate > 60.0 mL/min (>60); Globulin 3.2 g/dL (1.7-4.1); Glucose 139 mg/dL (80-110); HEMOLYSIS < 15 (0-50); Potassium 3.8 mmol/L (3.4-5.1); Sodium 136 mmol/L (137-145)
[2019-10-06 05:18] LABS: Procalcitonin 0.05 ng/mL (<0.5)
[2019-10-06 06:27] LABS: Creatine Kinase 79 U/L (55-170)
[2019-10-06 06:40] LABS: Troponin I < 0.012 ng/mL (0.01-0.034)
[2019-10-06] MEDS: SIMETHICONE 80 MG TABLET PO (07:39)
[2019-10-06 07:51] VITALS: BP 119/63; PULSE 80; RESP 20; O2SAT 93
== END 2019-10-06 08:20 | disposition home or self-care (01) ==
PROVIDERS: Emergency Provider Emergency Medicine; PCP Family Medicine
DX: R10.84 Generalized abdominal pain (principal); R53.83 Other fatigue
CPT/HCPCS: 36415; 71260; 74022; 74177; 80053; 82550; 83605; 84145; 84484; 85025; 85610; 87040; 93005; 93010; 96361; 96374; 96375; 96376; 99285; J1170; J2405; Q9967

== ENCOUNTER 2019-10-07 19:39 | Emergency (ER) | payer MEDICARE, OTHER, SELFPAY ==
[2019-10-07] VITALS (8 sets, daily range): BP systolic 120–144; BP diastolic 65–74; PULSE 91–117; RESP 16–36; TEMP 36.9; O2SAT 92–96; BMI 25.7
--- NOTE | 2019-10-07 19:49 | ED_ITS ---
HPI - Abdominal Pain General Chief Complaint: Abdominal Pain Stated Complaint: stomach pains since yesterday,no BM due to pain Time Seen by Provider: 10/07/19 19:49 Source: patient and family Mode of arrival: Wheelchair Limitations: no limitations History of Present Illness HPI narrative: 79-year-old male former smoker with history of hypertension, situs inversus, valve repair and prior bowel obstruction presents with worsening bowel pain, largely in the left upper quadrant with an inability to have a bowel movement. He was seen and evaluated a day and half ago under similar circumstances and had a reassuring exam, imaging including CT and labs. Since then his pain persists, if not worsens and he has become increasingly short of breath with any exertion. He denies fever but has had chills, fatigue, and poor appetite. He is nauseated, but does not vomit. Related Data Home Medications Medication Instructions Recorded Confirmed atorvastatin 80 mg tablet 80 mg PO QPM #90 tab 06/22/18 10/07/19 latanoprost 0.005 % eye drops 1 drp OPHTHALMIC (EYE) BID #7 ml 06/22/18 10/07/19 losartan 50 mg tablet 50 mg PO DAILY #90 tab 06/22/18 10/07/19 metoprolol tartrate 25 mg tablet 25 mg PO BID #180 tab 06/22/18 10/07/19 celecoxib [Celebrex] 200 mg PO QAM 10/07/19 10/07/19 Allergies Allergy/AdvReac Type Severity Reaction Status Date / Time silver sulfadiazine Allergy Unknown Verified 10/07/19 20:48 [From Allyssa] Review of Systems Constitutional Constitutional: Reports chills, Reports fatigue, Denies fever(s), Denies frequent falls, Denies lethargy and Reports weakness Eyes Eyes: Denies change in vision, Denies eye discharge, Denies irritation and Denies loss of vision ENT Ears, Nose, Mouth, and Throat: Denies change in voice, Denies dizziness, Denies neck pain, Denies sore throat and Denies throat swelling Cardiovascular Cardiovascular: Denies chest pain, Denies irregular heart rhythm, Denies lightheadedness, Denies palpitations, Reports dyspnea, Reports dyspnea on exertion and Denies orthopnea Respiratory Respiratory: Denies cough, Reports dyspnea, Reports dyspnea on exertion and Denies wheezing Gastrointestinal Gastrointestinal: Reports abdominal pain, Reports change in bowel habits, Denies diarrhea, Denies nausea and Denies vomiting Musculoskeletal Musculoskeletal: Denies neck pain and Denies numbness Integumentary/Breasts Skin/Breast: Denies pruritus, Denies erythema, Denies rash and Denies wounds Neurologic Neurologic: Denies behavioral changes, Denies confusion, Denies dizziness, Denies frequent falls, Denies loss of vision, Denies numbness and Reports weakness Psychiatric Psychiatric: Denies anxiety, Denies behavioral changes, Denies confusion, Denies depression, Denies homicidal ideation and Denies suicidal ideation Endocrine Endocrine: Reports fatigue, Denies flushing and Denies palpitations Hematologic/Lymphatic Hematologic/Lymphatic: Denies easy bruising Allergic/Immunologic Allergic/Immunologic: Denies urticaria, Denies throat swelling and Denies wheezing Patient History Social History Smoking Status: Former smoker Smoking Status: Former smoker alcohol intake frequency: a few times a week Substance Use Type: does not use Exam Narrative Exam Narrative: GENERAL: [79] year old patient appears stated age. Well- nourished, well-developed patient, in noted distress, significantly more ill appearing than when seen the other day by myself. Any exertion results in increased work of breathing and hypoxia HEAD: Atraumatic. Normocephalic. EYES: Pupils equal round and reactive. Extraocular motions intact. No scleral icterus. No injection or drainage. ENT: Nose without bleeding, purulent drainage. Throat without erythema, tonsillar hypertrophy or exudate. Airway patent. NECK: Trachea midline. Non tender CARDIOVASCULAR: Regular rate and rhythm without murmurs, gallops, or rubs. RESPIRATORY: Tachypnea, good effort, decreased sounds in left base with crackles in right base GASTROINTESTINAL: Abdomen soft, generalized tenderness with decreased bowel sounds, nondistended. EXTREMITIES: No edema or joint tenderness. BACK: Nontender without deformity or crepitance. No flank tenderness. NEURO: AOx3. SKIN: No rash or erythema of visible areas Initial Vital Signs Initial Vital Signs: Vital Signs Temperature 98.4 F 10/07/19 19:48 Pulse Rate 117 H 10/07/19 19:48 Respiratory Rate 16 10/07/19 19:48 Blood Pressure 135/71 10/07/19 19:48 Pulse Oximetry 93 10/07/19 19:48 Course Orders Ordered: ED Orders 10/07/19 19:49 EKG-12 Lead Stat 10/07/19 19:59 XR acute abdomen series Stat 10/07/19 20:27 Complete Blood Count AUTO DIFF Stat Comprehensive Metabolic Panel Stat Lipase Stat 10/07/19 20:29 NT-proBNP (BNP-Adult 18+) Stat Troponin & CK Cardiac Panel Stat 10/07/19 21:17 CT angio chest abdomen pelvis Stat 10/07/19 21:55 Lactate (Lactic Acid) Stat 10/07/19 22:00 Blood Culture Stat Sodium Chloride (Normal Saline 0.9%) 1,000 mls @ 150 mls/hr IV CONT PAT Last Infusion: 10/08/19 01:38 Dose: 150 mls/hr Documented by: Admin: 10/07/19 20:38 Dose: 150 mls/hr Documented by: DAY Discontinued Medications Hydromorphone HCl (Dilaudid) 0.5 mg IV NOW ONE Stop: 10/07/19 20:28 Last Admin: 10/07/19 20:38 Dose: 0.5 mg Documented by: DAY Hydromorphone HCl (Dilaudid) 0.5 mg IV NOW ONE Stop: 10/07/19 21:55 Last Admin: 10/07/19 22:07 Dose: 0.5 mg Documented by: DAY Levofloxacin (Levaquin) 500 mg in 100 mls @ 100 mls/hr IV NOW ONE Stop: 10/07/19 22:17 Last Infusion: 10/07/19 23:10 Dose: 0 mls/hr Documented by: Admin: 10/07/19 22:07 Dose: 100 mls/hr Documented by: DAY Piperacillin/Tazobactam/Dextrose (Zosyn) 4.5 gm in 100 mls @ 200 mls/hr IV NOW ONE Stop: 10/08/19 00:48 Last Infusion: 10/08/19 01:03 Dose: 0 mls/hr Documented by: Admin: 10/08/19 00:32 Dose: 200 mls/hr Documented by: ROBERT Metoclopramide HCl (Reglan) 5 mg IV NOW ONE Stop: 10/07/19 22:49 Last Admin: 10/07/19 23:08 Dose: 5 mg Documented by: ZGELEYN Ondansetron HCl (Zofran) 4 mg IV NOW ONE Stop: 10/07/19 23:28 Last Admin: 10/07/19 23:36 Dose: 4 mg Documented by: ROBERT Consultations Consultation #1: Discussed case with local hospitalist and patient will require specialties unavailable at [facility], will require transfer Consultation #2: discussion with pulmonology ([place] at [facility]) happy to be involved in consultation, requests admission to hospitalist Dr. Luna happy to accept Vital Signs Vital signs: Vital Signs - 8 hr 10/07/19 20:33 10/07/19 20:45 10/07/19 21:30 Temperature Pulse Rate 101 H 100 H 100 H Respiratory Rate 32 H 30 H 36 H Blood Pressure Blood Pressure [Left Arm] 144/69 H 139/69 Pulse Oximetry 93 95 96 10/07/19 21:45 10/07/19 22:00 10/07/19 22:30 Temperature Pulse Rate 100 H 97 H 99 H Respiratory Rate 18 34 H 21 Blood Pressure Blood Pressure [Left Arm] 144/65 H 135/67 131/74 Pulse Oximetry 94 93 92 10/07/19 23:00 10/08/19 00:29 10/08/19 01:28 Temperature 97.5 F L Pulse Rate 91 H 84 79 Respiratory Rate 21 16 16 Blood Pressure 137/62 Blood Pressure [Left Arm] 120/70 147/76 H Pulse Oximetry 93 94 95 MDM - Abdominal Pain Lab Data Result diagrams: 10/07/19 20:27 10/07/19 20:27 Labs: Lab Results 10/07/19 10/07/19 10/07/19 Range/Units 20:27 20:27 20:29 WBC 16.8 H D (4.5-11.0) X10^3/uL RBC 4.64 (4.5-5.9) X10^6/uL Hgb 15.0 (13.5-17.5) g/dL Hct 43.4 (41-53) % MCV 93.5 (80-100) fL MCH 32.3 (26-34) PG MCHC 34.6 (30-36) % RDW 13.5 (11.6-14.8) % Plt Count 263 (150-400) X10^3/uL Neut % (Auto) 87.6 H (50-75) % Lymph % (Auto) 3.2 L (25-40) % Divide % (Auto) 8.8 (3-14) % Eos % (Auto) 0.2 L (2-4) % Baso % (Auto) 0.2 (0-2) % Neut # (Auto) 91892 H (8649-9220) /uL Lymph # (Auto) 500 L (7344-8235) /uL Divide # (Auto) 1500 H (0-900) /uL Eos # (Auto) 0 (0-450) /uL Baso # (Auto) 0 (0-100) /uL Sodium 135 L (137-145) mmol/L Potassium 4.0 (3.4-5.1) mmol/L Chloride 105 (98-107) mmol/L Carbon Dioxide 20 L (22-32) mmol/L BUN 21 H (9-20) mg/dL Creatinine 0.79 (0.66-1.25) mg/dL Estimated GFR > 60.0 (>60) mL/min BUN/Creatinine Ratio 26.6 H (6-22) Glucose 132 H (80-110) mg/dL Lactate (0.7-2.1) mmol/L Calcium 8.6 (8.4-10.2) mg/dL Total Bilirubin 1.3 (0.2-1.3) mg/dL AST 26 (17-59) IU/L ALT 18 (<50) IU/L Alkaline Phosphatase 82 (38-126) U/L Total Creatine Kinase 81 (55-170) U/L CK-MB (CK-2) TNP CK-MB (CK-2) Rel Index TNP Troponin I < 0.012 (0.01-0.034) ng/mL NT-Pro-B Natriuret Pep 1320 H (<450) pg/mL Total Protein 7.0 (6.3-8.2) g/dL Albumin 3.6 (3.5-5.0) g/dL Globulin 3.4 (1.7-4.1) g/dL Albumin/Globulin Ratio 1.1 (1.0-2.8) Lipase 40 (23-300) U/L 10/07/19 Range/Units 21:55 WBC (4.5-11.0) X10^3/uL RBC (4.5-5.9) X10^6/uL Hgb (13.5-17.5) g/dL Hct (41-53) % MCV (80-100) fL MCH (26-34) PG MCHC (30-36) % RDW (11.6-14.8) % Plt Count (150-400) X10^3/uL Neut % (Auto) (50-75) % Lymph % (Auto) (25-40) % Divide % (Auto) (3-14) % Eos % (Auto) (2-4) % Baso % (Auto) (0-2) % Neut # (Auto) (7683-5625) /uL Lymph # (Auto) (3080-4572) /uL Divide # (Auto) (0-900) /uL Eos # (Auto) (0-450) /uL Baso # (Auto) (0-100) /uL Sodium (137-145) mmol/L Potassium (3.4-5.1) mmol/L Chloride (98-107) mmol/L Carbon Dioxide (22-32) mmol/L BUN (9-20) mg/dL Creatinine (0.66-1.25) mg/dL Estimated GFR (>60) mL/min BUN/Creatinine Ratio (6-22) Glucose (80-110) mg/dL Lactate 1.1 (0.7-2.1) mmol/L Calcium (8.4-10.2) mg/dL Total Bilirubin (0.2-1.3) mg/dL AST (17-59) IU/L ALT (<50) IU/L Alkaline Phosphatase (38-126) U/L Total Creatine Kinase (55-170) U/L CK-MB (CK-2) CK-MB (CK-2) Rel Index Troponin I (0.01-0.034) ng/mL NT-Pro-B Natriuret Pep (<450) pg/mL Total Protein (6.3-8.2) g/dL Albumin (3.5-5.0) g/dL Globulin (1.7-4.1) g/dL Albumin/Globulin Ratio (1.0-2.8) Lipase (23-300) U/L Imaging Data CT scan - abdomen/pelvis: Radiologist's Impression: Chart Viewer Diagnostics DATE TYPE STATUS REF RANGE/AUTHOR Hx 10/07/19 21:17 Call,Jake 10/07/19 19:59 Call,Jake 10/06/19 04:28 Karon Badiah 10/06/19 04:04 Geovani Ba 01/28/19 23:05 Call,Jake 01/28/19 21:49 Cathy Jean 08/11/18 12:41 Johnnie Olvera 07/11/18 08:44 Johnnie Olvera Charles M 79, M0 1940 REG ER, [facility] ED 182.88cm 86.183kg BMI: 25.8kg/m? Abdominal Pain Search Chart No Data to Display ONSET Today 01:28 Harsh Galeana 79 M [address] [address] [address] Scan Report Signed Patient: Harsh Galeana MMR#: [id number] : 9Acct:[id number] Age/Sex: 79 / MDate of Service: 10/07/19 Loc: ED Accession Number: [id number] Procedure: CT angio chest abdomen pelvis Ordering Provider: Kostas Purvis D.O. PROCEDURE: CT ANGIO CHEST ABDOMEN PELVIS INDICATIONS: severe abdominal pain, shortness of breath, hypoxia TECHNIQUE: Precontrast 5 mm thick sections acquired from the lung apices to the iliac crests. After the administration of intravenous contrast, 2.5 mm thick sections again acquired from the lung apices to the iliac crests. Maximum intensity projection (MIP) oblique sagittal and coronal reformats were then acquired. For radiation dose reduction, the following was used: automated exposure control. COMPARISON: [facility], CR, XR ACUTE ABDOMEN SERIES, 10/07/2019, 20:52. [facility], CT, CT CHEST ABD PEL W CON, 10/06/2019, 6:01. FINDINGS: Image quality: Excellent. Situs inversus totalis. AORTA: No acute aortic syndrome. No dissection. CHEST: Lungs and pleura: Rounded hypodense nodule within the left lower lobe juxtapleural lung parenchyma measuring 2.3 x 1.8 cm, (), previously 1.5 x 1.1 cm on 10/06/2019 at 0600 hours. Left lower lobe compressive atelectasis. Mild emphysematous change. Moderate sized left pleural effusion, increased. Central and peripheral airways are patent and normal in caliber. Mediastinum: Post median sternotomy. Heart size is normal. No pericardial effusion. Stranding in the pericardiac fat. No mediastinal or hilar adenopathy by size criteria. Small mediastinal lymph nodes. Aneurysmal dilatation of the ascending aorta measuring 4.2 cm in diameter, (11/50). Probable suture material suggesting prior repair. Central pulmonary arteries are normal in size. Esophagus is normal in caliber. Small hiatal hernias. Bones and chest wall: No axillary adenopathy by size criteria. Thyroid gland is unremarkable. No suspicious bony lesions. No vertebral body compression fractures. ABDOMEN: Vasculature: No dissection. Celiac trunk and mesenteric arteries are patent. Renal arteries are also patent. Solid organs: Liver is normal in size and enhancement. Multiple circumscribed hepatic cysts. Gallbladder is unremarkable. Biliary system is non dilated. Pancreas enhances normally. Spleen is normal in size and enhancement. Small splenule. No adrenal nodules. Both kidneys are normal in size and enhancement, without hydronephrosis. Left kidney nonobstructing calculus measuring 6 mm. Punctate nodule in Was on the right. Left simple renal cyst. Bilateral renal scarring and perinephric stranding. Peritoneum and bowel: No free fluid or air. Bowel loops are normal in caliber and wall thickness. Normal caliber of the appendix. Diverticulosis. Nodes and vessels: No retroperitoneal or mesenteric adenopathy by size criteria. Inferior vena cava is normal in morphology. Miscellaneous: No ventral hernias. PELVIS: Genitourinary: Bladder wall thickness is normal. No free fluid. Miscellaneous: No inguinal hernias or adenopathy. No ventral hernias. Bones: No suspicious bony lesions. No vertebral body compression fractures. IMPRESSION: 1. No acute aortic syndrome. 2. Interval increase in the left pleural effusion, now moderate. The effusion ap pears somewhat loculated. 3. Hypodense nodular focus in the juxtapleural left lower lobe which has increased compared to the exam performed yesterday morning. This could represent a small developing pulmonary abscess. 4. Small bilateral nonobstructing kidney stones. Perinephric stranding. 5. Aneurysmal dilatation of the ascending aorta measuring 4.2 cm. Probable prior repair. 6. Situs inversus totalis. Dictated by: Jake Santo M.D. on 10/07/2019 at 22:02 Approved by: Jake Santo M.D. on 10/07/2019 at 22:19 Critical Care Time Critical Care Time Critical Care Time: Yes Total Critical Care Time: 30 Attestation: The high probability of a clinically significant, sudden or life threatening deterioration of the [CV] system(s) required my full and direct attention, intervention and personal management. The aggregate critical care time was [30] minutes. This time is in addition to time spent performing reported procedures but includes the following: [x] Data Review and interpretation [x] Patient assessment and monitoring of vital signs [x] Documentation [x] Medication orders and management Discharge Plan Departure Patient Disposition: [facility] Clinical Impression: Pleural effusion, Abscess of lung Prescriptions: No Action celecoxib [Celebrex] 200 mg capsule 200 mg PO QAM RF: 0 atorvastatin 80 mg tablet 80 mg PO QPM Qty: 90 RF: 0 losartan 50 mg tablet 50 mg PO DAILY Qty: 90 RF: 0 metoprolol tartrate 25 mg tablet 25 mg PO BID Qty: 180 RF: 0 latanoprost 0.005 % drops 1 drp ophthalmic (eye) BID Qty: 7 RF: 0 Referrals: Jamilah West DO [Primary Care Provider] -
--- NOTE | 2019-10-07 19:59 | DI.RAD.S_ITS ---
PROCEDURE: XR ACUTE ABDOMEN SERIES INDICATIONS: severe abdominal pain TECHNIQUE: One view chest and two views of the abdomen were acquired. COMPARISON: [facility], CT, CT CHEST ABD PEL W CON, 10/06/2019, 6:01. [facility], CR, XR ACUTE ABDOMEN SERIES, 10/06/2019, 4:13. FINDINGS: Surgical changes and devices: Post median sternotomy. Surgical clips in the left pelvis. Chest: Increased opacity in the left lung compared to the prior exam which is due to pleural effusion as seen on recent CT. Heart size is normal. No obvious pneumoperitoneum. Abdomen: Prominent gas in the right colon and transverse colon. No suspicious calcifications. Visualized solid organ contours appear normal. Bones: No suspicious bony lesions. Mild scoliosis. IMPRESSION: 1. Layering left pleural effusion. 2. Prominent colonic gas. 3. No dilated loops of small bowel identified. Dictated by: Jake Santo M.D. on 10/07/2019 at 21:19 Approved by: Jake Santo M.D. on 10/07/2019 at 21:21
[2019-10-07 20:35] LABS: Add Manual Diff / Slide Review NO; Basophils Absolute Auto 0 /uL (0-100); Basophils Percent Auto 0.2 % (0-2); Eosinophils Absolute Auto 0 /uL (0-450); Eosinophils Percent Auto 0.2 % (2-4); Hematocrit 43.4 % (41-53); Lymphocytes Absolute Auto 500 /uL (1100-4500); Lymphocytes Percent Auto 3.2 % (25-40); Mean Corpuscular HGB Conc 34.6 % (30-36); Mean Corpuscular Hemoglobin 32.3 PG (26-34); Mean Corpuscular Volume 93.5 fL (80-100); Monocytes Absolute Auto 1500 /uL (0-900); Monocytes Percent Auto 8.8 % (3-14); Neutrophils Absolute Auto 14700 /uL (1500-7000); Neutrophils Percent Auto 87.6 % (50-75); Platelet Count 263 X10^3/uL (150-400); Red Blood Cell Count 4.64 X10^6/uL (4.5-5.9); Red Cell Distribution Width 13.5 % (11.6-14.8); White Blood Cell Count 16.8 X10^3/uL (4.5-11.0)
[2019-10-07] MEDS: SODIUM CHLORIDE 0.9% 1,000 ML 150 ML IV (20:38)
[2019-10-07] MEDS: HYDROMORPHONE 0.5 MG INJ IV ×2 (20:38→22:07)
[2019-10-07 20:46] LABS: Alanine Aminotransferase 18 IU/L (<50); Albumin 3.6 g/dL (3.5-5.0); Albumin Globulin Ratio 1.1 (1.0-2.8); Alkaline Phosphatase 82 U/L (38-126); Aspartate Aminotransferase 26 IU/L (17-59); BUN Creatinine Ratio 26.6 (6-22); Bilirubin Total 1.3 mg/dL (0.2-1.3); Blood Urea Nitrogen 21 mg/dL (9-20); Calcium 8.6 mg/dL (8.4-10.2); Carbon Dioxide 20 mmol/L (22-32); Chloride 105 mmol/L (98-107); Estimated Glomerular Filt Rate > 60.0 mL/min (>60); Globulin 3.4 g/dL (1.7-4.1); Glucose 132 mg/dL (80-110); HEMOLYSIS < 15 (0-50); Lipase 40 U/L (23-300); Sodium 135 mmol/L (137-145)
--- NOTE | 2019-10-07 21:17 | DI.CT.S_ITS ---
PROCEDURE: CT ANGIO CHEST ABDOMEN PELVIS INDICATIONS: severe abdominal pain, shortness of breath, hypoxia TECHNIQUE: Precontrast 5 mm thick sections acquired from the lung apices to the iliac crests. After the administration of intravenous contrast, 2.5 mm thick sections again acquired from the lung apices to the iliac crests. Maximum intensity projection (MIP) oblique sagittal and coronal reformats were then acquired. For radiation dose reduction, the following was used: automated exposure control. COMPARISON: [facility], CR, XR ACUTE ABDOMEN SERIES, 10/07/2019, 20:52. [facility], CT, CT CHEST ABD PEL W CON, 10/06/2019, 6:01. FINDINGS: Image quality: Excellent. Situs inversus totalis. AORTA: No acute aortic syndrome. No dissection. CHEST: Lungs and pleura: Rounded hypodense nodule within the left lower lobe juxtapleural lung parenchyma measuring 2.3 x 1.8 cm, (), previously 1.5 x 1.1 cm on 10/06/2019 at 0600 hours. Left lower lobe compressive atelectasis. Mild emphysematous change. Moderate sized left pleural effusion, increased. Central and peripheral airways are patent and normal in caliber. Mediastinum: Post median sternotomy. Heart size is normal. No pericardial effusion. Stranding in the pericardiac fat. No mediastinal or hilar adenopathy by size criteria. Small mediastinal lymph nodes. Aneurysmal dilatation of the ascending aorta measuring 4.2 cm in diameter, (). Probable suture material suggesting prior repair. Central pulmonary arteries are normal in size. Esophagus is normal in caliber. Small hiatal hernias. Bones and chest wall: No axillary adenopathy by size criteria. Thyroid gland is unremarkable. No suspicious bony lesions. No vertebral body compression fractures. ABDOMEN: Vasculature: No dissection. Celiac trunk and mesenteric arteries are patent. Renal arteries are also patent. Solid organs: Liver is normal in size and enhancement. Multiple circumscribed hepatic cysts. Gallbladder is unremarkable. Biliary system is non dilated. Pancreas enhances normally. Spleen is normal in size and enhancement. Small splenule. No adrenal nodules. Both kidneys are normal in size and enhancement, without hydronephrosis. Left kidney nonobstructing calculus measuring 6 mm. Punctate nodule in Was on the right. Left simple renal cyst. Bilateral renal scarring and perinephric stranding. Peritoneum and bowel: No free fluid or air. Bowel loops are normal in caliber and wall thickness. Normal caliber of the appendix. Diverticulosis. Nodes and vessels: No retroperitoneal or mesenteric adenopathy by size criteria. Inferior vena cava is normal in morphology. Miscellaneous: No ventral hernias. PELVIS: Genitourinary: Bladder wall thickness is normal. No free fluid. Miscellaneous: No inguinal hernias or adenopathy. No ventral hernias. Bones: No suspicious bony lesions. No vertebral body compression fractures. IMPRESSION: 1. No acute aortic syndrome. 2. Interval increase in the left pleural effusion, now moderate. The effusion appears somewhat loculated. 3. Hypodense nodular focus in the juxtapleural left lower lobe which has increased compared to the exam performed yesterday morning. This could represent a small developing pulmonary abscess. 4. Small bilateral nonobstructing kidney stones. Perinephric stranding. 5. Aneurysmal dilatation of the ascending aorta measuring 4.2 cm. Probable prior repair. 6. Situs inversus totalis. Dictated by: Jake Santo M.D. on 10/07/2019 at 22:02 Approved by: Jake Santo M.D. on 10/07/2019 at 22:19
[2019-10-07 21:51] LABS: Creatine Kinase 81 U/L (55-170)
[2019-10-07 22:04] LABS: NT-proBNP (BNP-Adult 18+) 1320 pg/mL (<450); Troponin I < 0.012 ng/mL (0.01-0.034)
[2019-10-07] MEDS: levoFLOXacin 500 MG/100 ML PIGGYBACK 100 MG IV (22:07)
[2019-10-07 22:25] LABS: Lactate (Lactic Acid) 1.1 mmol/L (0.7-2.1)
[2019-10-07] MEDS: METOCLOPRAMIDE 10 MG/2 ML INJ 5 MG IV (23:08)
[2019-10-07] MEDS: ONDANSETRON 4 MG/2 ML INJ IV (23:36)
[2019-10-08 00:29] VITALS: BP 147/76; PULSE 84; RESP 16; TEMP 36.4; O2SAT 94
[2019-10-08] MEDS: PIPERACILLIN-TAZO 4.5 GM/100 ML FROZ.PIGGY IV (00:32)
[2019-10-08 01:28] VITALS: BP 137/62; PULSE 79; RESP 16; O2SAT 95
== END 2019-10-08 01:28 | disposition short-term general hospital (02) ==
PROVIDERS: Emergency Provider Emergency Medicine; PCP Family Medicine
DX: J90 Pleural effusion, not elsewhere classified (principal); J85.2 Abscess of lung without pneumonia; R06.02 Shortness of breath; R09.02 Hypoxemia
CPT/HCPCS: 36415; 51798; 71275; 74022; 74174; 80053; 82550; 83605; 83690; 83880; 84484; 85025; 87040; 93005; 96365; 96367; 96375; 96376; 99285; 99291; J1170; J1956; J2405; J2543; J2765; Q9967

== ENCOUNTER → 2020-05-30 12:47 | Outpatient (CLI) | payer MEDICARE, OTHER, SELFPAY ==
--- NOTE | 2020-05-30 | DI.CT.S_ITS ---
PROCEDURE: CT CERVICAL SPINE WO CON INDICATIONS: Dysmenorrhea, unspecified. The patient gives additional history cervical spine pain. Prior abnormal cervical spine MRI. TECHNIQUE: Noncontrast 3 mm thick sections acquired from the skull base to the T4 level. Sagittal and coronal reformats were then constructed. For radiation dose reduction, the following was used: automated exposure control, adjustment of mA and/or kV according to patient size. COMPARISON: [facility], CT, CT ANGIO CHEST PE, 12/30/2019, 22:50. [facility], MR, C-SPINE WITHOUT CONTRAST, 03/09/2017, 16:20. FINDINGS: Image quality: Excellent. Bones: No acute fractures or dislocations. There is a mild, chronic appearing anterior wedge deformity seen involving the T1 level. Visualized superior ribs are intact. Degenerative changes are seen, with [id number] disc space narrowing at C4-C5, with at least moderate disc space narrowing at C5-C6 and C6-C7. Vacuum disc phenomenon can be seen at C5-C6 and C6-C7. Minimal C4-C5 anterolisthesis is seen. Focal degenerative change is seen involving the C1-C2 interface anteriorly. Milder degenerative changes are seen elsewhere. Soft tissues: Prevertebral soft tissues are normal in thickness. No paravertebral hematomas. No apical pneumothoraces. 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 Remote T1 anterior wedge deformity. 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 Dictated by: Broderick Cortés M.D. on 05/30/2020 at 13:12 Approved by: Broderick Cortés M.D. on 05/30/2020 at 13:15
== END ==
PROVIDERS: PCP Family Medicine; Referring Provider Orthopaedic Surgery; Visit Provider Orthopaedic Surgery
DX: M47.812 Spondylosis without myelopathy or radiculopathy, cervical region (principal); M54.2 Cervicalgia; Q89.3 Situs inversus
CPT/HCPCS: 72125

== ENCOUNTER → 2020-07-12 14:40 | Outpatient (CLI) | payer MEDICARE, OTHER, SELFPAY ==
--- NOTE | 2020-07-12 | DI.MRI.S_ITS ---
PROCEDURE: MR HEAD/BRAIN WO CON INDICATIONS: Other amnesia TECHNIQUE: Non-contrast axial T1 spin echo, axial T2 fast spin echo, sagittal and axial FLAIR, coronal T2 fast spin echo, axial gradient echo, axial diffusion and ADC through the brain. COMPARISON: None. FINDINGS: Image quality: This examination is limited by involuntary motion artifact. CSF spaces: Ventricles appear symmetric in size and shape. Basal cisterns are patent. No extra-axial fluid collections. Brain: No intracranial bleeds or mass effects. There is cerebral volume loss for age. There are periventricular and deep white matter chronic small vessel ischemic changes. Brainstem appears normal. Diffusion-weighted images show no acute ischemic insults. No chronic ischemic insults. Normal intravascular flow voids are present. Skull and face: Calvarial bone marrow is normal in signal. Orbits are normal. Sinuses: Sinuses and mastoids are clear. 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 There is mild leftward nasal septal deviation seen. IMPRESSION: Study within normal limits for age, without an imaging explanation found for the patient's presenting symptoms. Dictated by: Broderick Cortés M.D. on 07/14/2020 at 8:28 Approved by: Broderick Cortés M.D. on 07/14/2020 at 8:51
== END ==
PROVIDERS: PCP Family Medicine; Referring Provider Family Medicine; Visit Provider Family Medicine
DX: R41.3 Other amnesia (principal); J34.2 Deviated nasal septum
CPT/HCPCS: 70551

== ENCOUNTER → 2020-08-13 07:41 | Outpatient (CLI) | payer MEDICARE, OTHER, SELFPAY ==
--- NOTE | 2020-08-13 | DI.RAD.S_ITS ---
PROCEDURE: FL BARIUM SWALLOW W SPEECH INDICATIONS: Cough after eating COMPARISON: None. TECHNIQUE: Examination was conducted in conjunction with speech pathology per standard protocol. In the lateral projection, filming was performed of the patient swallowing. AP projection filming may also be performed with patient swallowing. COMPARISON: FINDINGS: Function: The oral preparatory phase appears normal, with proper containment. The subsequent oral propulsive phase, pharyngeal phase, and esophageal phase of swallowing also appear normal with all proffered substances. Guzman silent aspiration occurred with repeat swallows. Mild pooling of material within the vallecula which was not always completely cleared with repeat swallows. 13 millimeter barium tablet readily passed from the oral cavity to the stomach.. Morphology: No cricopharyngeal bar is identified. No cervical esophageal webs. No Zenker's diverticulum. No strictures. IMPRESSION: Silent aspiration. Dictated by: Cathy Jean MD, PhD on 08/13/2020 at 9:51 Approved by: Cathy Jean MD, PhD on 08/13/2020 at 9:52
--- NOTE | 2020-08-14 13:24 | ST.SWALLOW ---
Visit Care Team Role Provider Type Jamilah West DO Attending Provider Non-Staff Primary Care Provider Referring Provider Specialty: Family Practice Address: [address] [place] [address], [phone] Email: ST Modified Barium Swallow Study MANAGER REGIONAL Clinical Instructor Line Start: 08/14/20 13:23 Freq: Status: Active Protocol: Document 08/13/20 13:23 TLC (Rec: 08/14/20 13:24 TLC [id number]) Clinical Instructor Signature Clinical Instructor Clinical Instructor Yes: Shaila Reid MS, CCC-MANAGER REGIONAL MANAGER REGIONAL Modified Barium Swallow Study Start: 08/13/20 12:03 Freq: Status: Active Protocol: Document 08/13/20 12:03 EB (Rec: 08/13/20 12:06 EB [id number]) Modified Barium Swallow Study Total Time Visit Start Time 08:30 Visit Stop Time 09:00 Total Visit Minutes 30 Visit Information Visit Number 1 Insurance Information [facility] Referral Referring Physician Jamilah West DO Reason for Referral Coughing while eating Setting Setting Outpatient Care Patient Information Identification Type Name Patient History Patient is a 80 year old male who reports persistent coughing every time he eats. Patient stated that occasionally while watching television or driving he feels the need to cough and that it is only helped when he drinks water. Patient indicated that the coughing occurs with all food types/textures but is especially worse with dry textures. He also stated that pills tend to get stuck in his throat. When asked about any previous pneumonia diagnoses, Patient stated that last year he was admitted into the hospital for fluid in his lungs and that it may have been pneumonia. He has not had any previous speech therapy. Subjective Observations Patient was alert, oriented, and cooperative during the study. Patient Positioning Position View Lateral Imaging Lateral View Textures Administered Trials Presented Thin Liquid via Spoon,Thin Liquid via Cup,[place] Liquid via Spoon,[place] Liquid via Cup,Honey Liquid via Spoon, Regular Textures,Barium Tablet Oral Phase Source: MBSIMP (TM) (C) Bolus Specific Scoring Grid Lip Closure No Impairment (WNL) Tongue Control During Bolus Hold No Impairment (WNL) Bolus Prep/Mastication No Impairment (WNL) Bolus Transport/Lingual Motion No Impairment (WNL) Oral Residue Minimal Impairment Additional Oral Phase Observations Trace amount of oral residue lining oral structures. Pharyngeal Phase Source: MBSIMP (TM) (C) Bolus Specific Scoring Grid Delayed Initiation of Pharyngeal Swallow No Soft Palate Elevation No Impairment (WNL) Tongue Base Strength/Range of Motion Moderate Impairment Laryngeal Elevation Mild Impairment Anterior Hyoid Movement Mild Impairment Epiglottic Range of Motion Moderate Impairment Vallecular Residue Yes Laryngeal Vestibular Closure Moderate Impairment Pharyngeal Stripping Wave Mild Impairment Additional Pharyngeal Phase Observations Impairments found in tongue base strength, pharyngeal stripping wave, and anterior hyoid excursion are likely contributing to 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 This resulted in one episode of penetration of thin liquid via teaspoon (PAS scale score of 2 ) and trace aspiration during consecutive cup sips of thin liquid (PAS scale score of 7). Patient responded to aspiration with a delayed cough which was not successful in ejecting contrast from airway. With liquid trials, there was a collection of residue in the valleculae and on the aryepglottic folds. With cookie trial, a majority of contrast remained in the valleculae after the initial swallow and patient required three swallows to fully clear bolus. The following strategies were attempted to eliminate aspiration and pharyngeal residue: chin tuck, effortful swallow, double- swallow. All strategies were successful in eliminating aspiration and decreasing pharyngeal residue; however, residue was not completely eliminated with any strategies attempted. Patient reported a recent self-implementation of chin tuck strategy during pill swallowing per doctor recommendation and indicated that this strategy has been helpful. A/P View Esophageal Observations Esophageal Function Observation was limited in lateral view only, however, what could be observed appeared to be within normal limits. Per MD report, barium tablet readily passed from the oral cavity to the stomach. Clinical Impressions Dysphagia Type Pharyngeal Findings Patient has moderate pharyngeal dysphagia characterized by incomplete epiglottic inversion, incomplete laryngeal vestibular closure, and significant pharyngeal residue . MANAGER REGIONAL reviewed immediate findings with patient and provided verbal education on aspiration precautions and compensatory strategies as well as importance of oral hygiene in decreasing risk of developing aspiration pneumonia. Patient would benefit from outpatient therapy to receive further education regarding his swallow function and discuss ways to proceed (diet modification, strengthening exercises, etc.) as well as risks/benefits associated with these decisions. Rehabilitation Potential Good Patient Appropriate for Therapy Yes Recommendations Diet Medication Recommendation One at a Time Additional Dietary Needs Single Sips Aspiration Precautions Recommended Precautions Small Bites/Sips,Chin Tuck, Effortful Swallow,Double Swallow Treatment Plan Therapy Recommendations Outpatient Speech Therapy, Compensatory Strategy Education Additional Therapy Recommendations Base of tongue exercises, Jonas, Shaker/CTAR, Effortful swallow.
== END ==
PROVIDERS: PCP Family Medicine; Referring Provider Family Medicine; Visit Provider Family Medicine
DX: R05 Cough; J98.8 Other specified respiratory disorders
CPT/HCPCS: 74230; 92507; 92611

== ENCOUNTER 2021-01-22 01:47 | Inpatient (IN) | payer MEDICARE, OTHER, SELFPAY ==
[2021-01-22] VITALS (14 sets, daily range): BP systolic 105–148; BP diastolic 56–92; PULSE 63–78; RESP 14–31; TEMP 36–36.6; O2SAT 93–98; BMI 25.0; BMI 23.9
--- NOTE | 2021-01-22 | DI.RAD.S_ITS ---
PROCEDURE: XR GASTROGRAFIN CHALLENGE COMPARISON: [facility], CT, CT ABDOMEN PELVIS W CON, 01/22/2021, 2:50. INDICATIONS: PSBO FINDINGS: Upright a supine image of the abdomen was acquired after 4 hours of administration of Gastrografin. There is an enteric tube in the stomach. The stomach is right-sided. There are clips in the left pelvis. There is transit of contrast into the small bowel in the right abdomen. There is persistent dilated loop of small bowel in the right abdomen. Mild scoliosis. IMPRESSION: Persistent dilated loop of small bowel in the right abdomen. Findings concerning for persistent small bowel obstruction. Situs inversus. Dictated by: Jake Santo M.D. on 01/22/2021 at 14:25 Approved by: Jake Santo M.D. on 01/22/2021 at 14:34
--- NOTE | 2021-01-22 02:22 | DI.CT.S_ITS ---
PROCEDURE: CT ABDOMEN PELVIS W CON INDICATIONS: distention, history of obstruction TECHNIQUE: After the administration of intravenous contrast, axial sections acquired from the lung bases to the pubic symphysis. Coronal and sagittal reformats were performed. For radiation dose reduction, the following was used: automated exposure control, adjustment of mA and/or kV according to patient size. COMPARISON: [facility], CT, CT CHEST ABD PEL W CON, 10/06/2019, 6:01. [facility], CT, CT ABDOMEN PELVIS W CON, 01/28/2019, 23:10. FINDINGS: Image quality: Excellent. Lung bases: There is mild dependent atelectasis versus subpleural scarring in the lung bases. Heart: No significant findings. Sternotomy changes are partially imaged. The patient demonstrates situs inversus totalis. ABDOMEN: Liver: Numerous evidence cysts are again seen in the liver, which do not appear significantly changed in size. Gallbladder: Gallbladder appears normal. Biliary ducts: Unremarkable. Pancreas: Unremarkable. Spleen: Unremarkable. Adrenal Glands: Unremarkable. Kidneys and Ureters: Multiple nonobstructing calculi are seen in each kidney. There is mild multifocal renal cortical scarring that appears stable. Left-sided renal cysts appear stable. No ureteral calculus is seen. There is no hydronephrosis. Stomach and Bowel: A few diverticula are seen in the colon without signs of acute diverticulitis. Normal appendix. Surgical clips are seen in the gastroesophageal junction, likely from prior fundoplication. A few mildly prominent fluid-filled loops of bowel are seen in the mid abdomen a fecalized loop and decompressed bowel distally. Peritoneum: No abnormal intraperitoneal fluid. No free air. Ventral Wall: No hernias. Abdominal Nodes: No retroperitoneal or mesenteric adenopathy by size criteria. Vessels: Aorta and inferior vena cava are normal in size. Moderate aortic atherosclerotic calcifications. PELVIS: Pelvic Organs: Unremarkable. Bladder: Unremarkable. Pelvic Nodes: No enlarged lymph nodes. Miscellaneous: No hernias are seen. Bones: Degenerative changes are seen in the spine. There is mild levoconvex curvature of the lumbar spine. IMPRESSION: 1. Situs inversus totalis. 2. A few prominent fluid-filled loops of small bowel are seen with transition to decompressed bowel in the right lower quadrant, suspicious for a low grade partial or developing small bowel obstruction. 3. Bilateral nonobstructing renal calculi. No hydronephrosis. There is no significant discrepancy when compared to the overnight Teleradiology report. Dictated by: Alec Romero M.D. on 01/22/2021 at 8:02 Approved by: Alec Romero M.D. on 01/22/2021 at 8:15
[2021-01-22] MEDS: MORPHINE 2 MG/ML INJ IV ×3 (02:26→09:36)
[2021-01-22] MEDS: ONDANSETRON 4 MG/2 ML INJ IV ×4 (02:26→15:38)
[2021-01-22] MEDS: SODIUM CHLORIDE 0.9% 1,000 ML 150 ML IV (02:26)
[2021-01-22 02:27] LABS: Add Manual Diff / Slide Review NO; Basophils Absolute Auto 0 /uL (0-100); Basophils Percent Auto 0.6 % (0-2); Eosinophils Absolute Auto 100 /uL (0-450); Eosinophils Percent Auto 1.3 % (2-4); Hematocrit 46.7 % (41-53); Hemoglobin 15.4 g/dL (13.5-17.5); Lymphocytes Absolute Auto 1400 /uL (1100-4500); Lymphocytes Percent Auto 18.1 % (25-40); Mean Corpuscular HGB Conc 33.1 % (30-36); Mean Corpuscular Hemoglobin 31.4 PG (26-34); Monocytes Absolute Auto 700 /uL (0-900); Monocytes Percent Auto 8.8 % (3-14); Neutrophils Absolute Auto 5600 /uL (1500-7000); Neutrophils Percent Auto 71.2 % (50-75); Platelet Count 189 X10^3/uL (150-400); Red Blood Cell Count 4.91 X10^6/uL (4.5-5.9); Red Cell Distribution Width 13.6 % (11.6-14.8); White Blood Cell Count 7.8 X10^3/uL (4.5-11.0)
[2021-01-22 02:37] LABS: Alanine Aminotransferase 19 IU/L (<50); Albumin 4.1 g/dL (3.5-5.0); Albumin Globulin Ratio 1.6 (1.0-2.8); Alkaline Phosphatase 90 U/L (38-126); Aspartate Aminotransferase 24 IU/L (17-59); BUN Creatinine Ratio 24.5 (6-22); Bilirubin Total 0.8 mg/dL (0.2-1.3); Blood Urea Nitrogen 24 mg/dL (9-20); Carbon Dioxide 26 mmol/L (22-32); Chloride 106 mmol/L (98-107); Estimated Glomerular Filt Rate > 60.0 mL/min (>60); Globulin 2.6 g/dL (1.7-4.1); Glucose 128 mg/dL (80-110); HEMOLYSIS < 15 (0-50); Lipase 138 U/L (23-300); Potassium 4.2 mmol/L (3.4-5.1); Sodium 138 mmol/L (137-145); Total Protein 6.7 g/dL (6.3-8.2)
[2021-01-22 02:54] LABS: Creatine Kinase 86 U/L (55-170); Lactate (Lactic Acid) 1.3 mmol/L (0.7-2.1)
[2021-01-22 03:06] LABS: Troponin I < 0.012 ng/mL (0.01-0.034)
--- NOTE | 2021-01-22 03:08 | ED.ABDPAIN ---
HPI - Abdominal Pain General Chief Complaint: Abdominal Pain Stated Complaint: stomach is blown up/hurts/hard Time Seen by Provider: 01/22/21 02:05 Source: patient Mode of arrival: Ambulatory Limitations: no limitations History of Present Illness HPI narrative: 80 year old Male former smoker history of hypertension, situs inversus, possible ascending aortic aneurysm and prior small-bowel obstruction presenting today with increasing abdominal pain. He says it started around 4:00 p.m. this afternoon. He had a bowel movement earlier today which was normal. He is feeling that his abdomen is more distended and he is feeling nauseated. No significant vomiting. He has no chest pain or palpitations. He has not had any fever or chills. Related Data Home Medications Medication Instructions Recorded Confirmed atorvastatin 80 mg tablet 80 mg PO QPM #90 tab 06/22/18 01/22/21 latanoprost 0.005 % eye drops 1 drp OPHTHALMIC (EYE) DAILY #7 ml 06/22/18 01/22/21 losartan 50 mg tablet 50 mg PO DAILY #90 tab 06/22/18 01/22/21 metoprolol tartrate 25 mg tablet 25 mg PO BID #180 tab 06/22/18 01/22/21 Allergies Allergy/AdvReac Type Severity Reaction Status Date / Time silver sulfadiazine Allergy Unknown Verified 10/07/19 20:48 [From Allyssa] Review of Systems Review of Systems Narrative: GENERAL: Denies chills, fatigue, malaise, fever, sweats, travel HEENT: Denies sinus pain, ear pain, sore throat, difficulty swallowing, neck pain RESPIRATORY: Denies dyspnea, cough, wheezing, hemoptysis, sputum. CARDIOVASCULAR: Denies chest pain, palpitations, orthopnea, edema GASTROINTESTINAL: See HPI : Denies dysuria, frequency, incontinence, hematuria, urinary retention, flank pain. MUSCULOSKELETAL: Denies weakness, joint pain, or bony pain SKIN: No rash, no erythema, no pruritus NEUROLOGIC: Denies weakness, dizziness, headache, numbness, change in speech, confusion PSYCHIATRIC: No concerning psychosocial issues. 12 point review of systems is negative except for those stated above and HPI Patient History Surgical History History of Krista fundoplication Social History household members: spouse Smoking Status: Former smoker alcohol intake: current Smoking Status: Former smoker alcohol intake frequency: a few times a week Substance Use Type: does not use Exam Initial Vital Signs Initial Vital Signs: Vital Signs Temperature 97.8 F 01/22/21 01:58 Pulse Rate 63 01/22/21 01:58 Respiratory Rate 20 01/22/21 01:58 Blood Pressure 148/66 H 01/22/21 01:58 Pulse Oximetry 96 01/22/21 01:58 GENERAL: Alert pleasant 80-year-old male in no acute distress. HEENT: Head atraumatic,EOMI, pupils reactive, face symmetric, moist mucous membranes CARDIOVASCULAR: Regular rate and rhythm without murmurs, rubs or gallops. RESPIRATORY: Breath sounds equal bilaterally, no wheezes rales or rhonchi. ABDOMEN: Soft, mild distension vertical abdominal scar noted no hyperactive bowel sounds no localization of pain EXTREMITIES: Normal range of motion, no clubbing or edema. Neurovascularly intact NEUROLOGICAL: Alert and oriented x4.Normal gait and speech. Cranial nerves II through XII grossly intact. SKIN: Warm, dry, no laceration, no petechiae, no rashes or lesions. Course Orders Ordered: Discontinued Medications Sodium Chloride (Normal Saline 0.9%) 1,000 mls @ 150 mls/hr IV CONT PAT Last Infusion: 01/22/21 10:09 Dose: 0 mls/hr Documented by: Infusion: 01/22/21 06:00 Dose: 150 mls/hr Documented by: Admin: 01/22/21 02:26 Dose: 150 mls/hr Documented by: SERGIO Lidocaine HCl (Lidocaine 2% (Glydo) 6 Ml Gel) 6 ml TOP NOW ONE Stop: 01/22/21 05:04 Last Admin: 01/22/21 05:53 Dose: 6 ml Documented by: CELIA Morphine Sulfate (Morphine 2 Mg/Ml Inj) 2 mg IV NOW ONE Stop: 01/22/21 02:23 Last Admin: 01/22/21 02:26 Dose: 2 mg Documented by: SERGIO Morphine Sulfate (Morphine 2 Mg/Ml Inj) 2 mg IV NOW ONE Stop: 01/22/21 04:04 Last Admin: 01/22/21 04:07 Dose: 2 mg Documented by: HGUBERN Morphine Sulfate (Morphine 2 Mg/Ml Inj) 2 mg IV Q4HR PRN PRN Reason: Pain, Moderate (4-6) Last Admin: 01/22/21 09:36 Dose: 2 mg Documented by: MARLEN Ondansetron HCl (Ondansetron 4 Mg/2 Ml Inj) 4 mg IV NOW ONE Stop: 01/22/21 02:23 Last Admin: 01/22/21 02:26 Dose: 4 mg Documented by: SERGIO Ondansetron HCl (Ondansetron 4 Mg/2 Ml Inj) 4 mg IV NOW ONE Stop: 01/22/21 05:34 Last Admin: 01/22/21 05:36 Dose: 4 mg Documented by: SERGIO Ondansetron HCl (Ondansetron 4 Mg/2 Ml Inj) 4 mg IV Q4HR PRN PRN Reason: Nausea And Vomiting Last Admin: 01/22/21 15:38 Dose: 4 mg Documented by: Admin: 01/22/21 11:17 Dose: 4 mg Documented by: MARLEN Sodium Chloride (Sodium Chloride 0.9% Flush) 10 ml IV PRN PRN PRN Reason: Flush Sodium Chloride (Sodium Chloride 0.9% Flush) 10 ml IV BID PAT Last Admin: 01/23/21 10:22 Dose: Not Given Documented by: Admin: 01/22/21 22:08 Dose: 10 ml Documented by: DENZEL Vital Signs Vital signs: Vital Signs - 8 hr 01/22/21 01:58 01/22/21 02:34 01/22/21 03:00 Temperature 97.8 F Pulse Rate 63 76 65 Respiratory Rate 20 31 H 27 H Blood Pressure 148/66 H Pulse Oximetry 96 94 93 01/22/21 03:30 01/22/21 04:00 01/22/21 04:18 Temperature Pulse Rate 69 72 73 Respiratory Rate 22 17 16 Blood Pressure 130/67 Pulse Oximetry 95 95 94 MDM - Abdominal Pain Lab Data Result diagrams: 01/22/21 02:18 01/22/21 02:18 Labs: Lab Results 01/22/21 01/22/21 01/22/21 Range/Units 02:18 02:18 02:18 WBC 7.8 (4.5-11.0) X10^3/uL RBC 4.91 (4.5-5.9) X10^6/uL Hgb 15.4 (13.5-17.5) g/dL Hct 46.7 (41-53) % MCV 95.0 (80-100) fL MCH 31.4 (26-34) PG MCHC 33.1 (30-36) % RDW 13.6 (11.6-14.8) % Plt Count 189 (150-400) X10^3/uL Neut % (Auto) 71.2 (50-75) % Lymph % (Auto) 18.1 L (25-40) % [place] % (Auto) 8.8 (3-14) % Eos % (Auto) 1.3 L (2-4) % Baso % (Auto) 0.6 (0-2) % Neut # (Auto) 5600 (2560-9269) /uL Lymph # (Auto) 1400 (8128-9726) /uL [place] # (Auto) 700 (0-900) /uL Eos # (Auto) 100 (0-450) /uL Baso # (Auto) 0 (0-100) /uL Sodium 138 (137-145) mmol/L Potassium 4.2 (3.4-5.1) mmol/L Chloride 106 (98-107) mmol/L Carbon Dioxide 26 (22-32) mmol/L BUN 24 H (9-20) mg/dL Creatinine 0.98 (0.66-1.25) mg/dL Estimated GFR > 60.0 (>60) mL/min BUN/Creatinine Ratio 24.5 H (6-22) Glucose 128 H (80-110) mg/dL Lactate (0.7-2.1) mmol/L Calcium 9.0 (8.4-10.2) mg/dL Total Bilirubin 0.8 (0.2-1.3) mg/dL AST 24 (17-59) IU/L ALT 19 (<50) IU/L Alkaline Phosphatase 90 (38-126) U/L Total Creatine Kinase 86 (55-170) U/L CK-MB (CK-2) TNP CK-MB (CK-2) Rel Index TNP Troponin I < 0.012 (0.01-0.034) ng/mL Total Protein 6.7 (6.3-8.2) g/dL Albumin 4.1 (3.5-5.0) g/dL Globulin 2.6 (1.7-4.1) g/dL Albumin/Globulin Ratio 1.6 (1.0-2.8) Lipase 138 (23-300) U/L SARS-CoV-2 (PCR) (Negative) 01/22/21 01/22/21 Range/Units 02:18 05:05 WBC (4.5-11.0) X10^3/uL RBC (4.5-5.9) X10^6/uL Hgb (13.5-17.5) g/dL Hct (41-53) % MCV (80-100) fL MCH (26-34) PG MCHC (30-36) % RDW (11.6-14.8) % Plt Count (150-400) X10^3/uL Neut % (Auto) (50-75) % Lymph % (Auto) (25-40) % [place] % (Auto) (3-14) % Eos % (Auto) (2-4) % Baso % (Auto) (0-2) % Neut # (Auto) (4631-5316) /uL Lymph # (Auto) (7650-8494) /uL [place] # (Auto) (0-900) /uL Eos # (Auto) (0-450) /uL Baso # (Auto) (0-100) /uL Sodium (137-145) mmol/L Potassium (3.4-5.1) mmol/L Chloride (98-107) mmol/L Carbon Dioxide (22-32) mmol/L BUN (9-20) mg/dL Creatinine (0.66-1.25) mg/dL Estimated GFR (>60) mL/min BUN/Creatinine Ratio (6-22) Glucose (80-110) mg/dL Lactate 1.3 (0.7-2.1) mmol/L Calcium (8.4-10.2) mg/dL Total Bilirubin (0.2-1.3) mg/dL AST (17-59) IU/L ALT (<50) IU/L Alkaline Phosphatase (38-126) U/L Total Creatine Kinase (55-170) U/L CK-MB (CK-2) CK-MB (CK-2) Rel Index Troponin I (0.01-0.034) ng/mL Total Protein (6.3-8.2) g/dL Albumin (3.5-5.0) g/dL Globulin (1.7-4.1) g/dL Albumin/Globulin Ratio (1.0-2.8) Lipase (23-300) U/L SARS-CoV-2 (PCR) Negative (Negative) Imaging Data CT scan - abdomen/pelvis: Radiologist's Impression: Preliminary report: Moderate to high-grade small-bowel obstruction transition in right lower quadrant ECG Data Interpretation: Sinus rhythm rate 65 NE interval [address] changes bigeminy noted MDM Narrative Medical decision making narrative: The patient is presenting with abdominal distension nausea and pain concern for another small bowel obstruction. CT does confirm small bowel obstruction with a transition point. Surgery has been contacted. At this point conservative management with NG tube and pain control. Dr. Cao happily accepts patient Patient does have frequent PVCs on monitor but is overall asymptomatic. Discharge Plan Departure Patient Disposition: Admitted As Inpatient Clinical Impression: Small bowel obstruction Admit Date/Time: 01/22/21 05:20 Admit Provider: Raul Cao
--- NOTE | 2021-01-22 04:17 | PC.NURSE ---
Pt requested new iv, states having pain from iv when he moves his arm. started new iv per his request.
--- NOTE | 2021-01-22 05:20 | DI.RAD.S_ITS ---
PROCEDURE: XR CHEST 1V INDICATIONS: check ng tube placement TECHNIQUE: One view of the chest was acquired. COMPARISON: [facility], CT, CT ABDOMEN PELVIS W CON, 01/22/2021, 2:50. [facility], CR, XR CHEST 1 VIEW, 12/30/2019, 21:48. FINDINGS: Surgical changes and devices: Sternal wires are present. Nasogastric tube is present with distal tip projecting over the level of the gastroesophageal junction. Lungs and pleura: Chronic interstitial opacities are present. There is blunting of the left costophrenic angle, unchanged. No pleural effusions or pneumothorax. Mediastinum: Situs inversus is noted. Heart is enlarged. Bones and chest wall: No suspicious bony lesions. Overlying soft tissues appear unremarkable. IMPRESSION: 1. Nasogastric tube as above. Forward advancement by approximately 8 cm is recommended. The above findings are concordant with preliminary report. Dictated by: Lorna Dumont M.D. on 01/22/2021 at 8:48 Approved by: Lorna Dumont M.D. on 01/22/2021 at 8:51
[2021-01-22] MEDS: LIDOCAINE 2% (GLYDO) 6 ML GEL TOP (05:53)
[2021-01-22 06:01] LABS: COVID19 - ADMIT (NP swab/PCR) Negative (Negative)
--- NOTE | 2021-01-22 07:04 | PC.ADMIT ---
[facility] [facility] Admission Note: Patient arrived via stretcher from the ED at 0545. Patient was A/O, on RA, with NG tube in place. Patient was oriented to room, call light, belongs left within reach, and bed in lowest and locked position. After patient arrived to the unit, ED RN Fiordaliza called to inform this RN that the X-Ray for NG tube placement showed that the tube needed to be advanced 8cm. Tube was advanced and set to low intermittent suction. The patient,Harsh Galeana,80 y/o, was given written information regarding hospital policies, unit procedures and contact persons. Patient's smoking status: Former smoker. Vital Signs - 8 hr 01/22/21 01:58 01/22/21 02:34 01/22/21 03:00 Temperature 97.8 F Pulse Rate 63 76 65 Respiratory Rate 20 31 H 27 H Blood Pressure 148/66 H Pulse Oximetry 96 94 93 01/22/21 03:30 01/22/21 04:00 01/22/21 04:18 Temperature Pulse Rate 69 72 73 Respiratory Rate 22 17 16 Blood Pressure 130/67 Pulse Oximetry 95 95 94 01/22/21 04:30 01/22/21 05:00 01/22/21 05:30 Temperature Pulse Rate 70 75 66 Respiratory Rate 21 23 26 H Blood Pressure 118/78 137/63 105/56 L Pulse Oximetry 93 96 97 01/22/21 05:45 Temperature 97.3 F L Pulse Rate 72 Respiratory Rate 17 Blood Pressure 142/92 H Pulse Oximetry 98
--- NOTE | 2021-01-22 07:40 | DI.RAD.S_ITS ---
PROCEDURE: XR CHEST 1V INDICATIONS: Ng tube placement TECHNIQUE: One view of the chest was acquired. COMPARISON: [facility], CT, CT ABDOMEN PELVIS W CON, 01/22/2021, 2:50. [facility], CR, XR CHEST 1V, 01/22/2021, 5:22. FINDINGS: Surgical changes and devices: Enteric tube is coiled in the stomach. Note: The stomach is in the right abdomen on CT earlier today. Post median sternotomy. Lungs and pleura: Lungs appear clear. No pleural effusions or pneumothorax. Mediastinum: Mediastinal contours appear unchanged. Heart size appears normal. The cardiac apex points to the patient's right. Bones and chest wall: No suspicious bony lesions. Overlying soft tissues appear unremarkable. IMPRESSION: Enteric tube coiled in the stomach. Dictated by: Jake Santo M.D. on 01/22/2021 at 8:13 Approved by: Jake Santo M.D. on 01/22/2021 at 8:17
--- NOTE | 2021-01-22 08:57 | PC.NURSE ---
Per report from overnight stocker RN, ED called to report that the chest xray for NG placement recommended tube be advanced approx. 8 cm and this was done but no other order for xray. Ordered xray, it appeared the tube was coiled. Attempted to adjust the NG with no success. Called Dr. Cao to let him know patient has arrived to the floor and the NG issues. He states the Ng tube is ok as long as the tip is located in the stomach and that he will be to the floor shortly to see the patient and put in orders.
--- NOTE | 2021-01-22 09:17 | PM.HP.1 ---
History of Present Illness History of Present Illness Date Patient Seen: 01/22/21 Time Patient Seen: 09:18 Date of Onset of Symptoms: 01/21/21 Chief complaint: stomach is blown up/hurts/hard Narrative: States that abdominal pain started yesterday about 4pm. Cramping, N/V. No flatus/BM in 24 hrs. Patient History Surgical History History of Krista fundoplication Comment: Previous laparotomy for SBO many years ago Previous Aortic root surgery for aneurysm Family & Social History Social History: household members spouse Prior Living Arrangements House Safety & Behavioral: Feels Safe in Current Yes Environment Been Physically Hurt or No Threatened By a Person Suicidal Ideation Description None Suicide Plan Description No Plan Tobacco & Substance use: Smoking Status Former smoker alcohol intake current alcohol intake frequency a few times a week Substance Use Type does not use Meds Home Medications and Allergies Home Medications Medication Instructions Recorded Confirmed Type atorvastatin 80 mg tablet 80 mg PO QPM #90 tab 06/22/18 01/22/21 History latanoprost 0.005 % eye drops 1 drp OPHTHALMIC (EYE) DAILY #7 ml 06/22/18 01/22/21 History losartan 50 mg tablet 50 mg PO DAILY #90 tab 06/22/18 01/22/21 History metoprolol tartrate 25 mg tablet 25 mg PO BID #180 tab 06/22/18 01/22/21 History Allergies Allergy/AdvReac Type Severity Reaction Status Date / Time silver sulfadiazine Allergy Unknown Verified 10/07/19 20:48 [From [facility]] Review of Systems Review of Systems ROS: Yes All systems reviewed with the patient and are negative except as otherwise documented Gastrointestinal Gastrointestinal: Reports as per HPI Exam Vital Signs (past 8 hours): - 01/22/21 01:58 01/22/21 02:34 01/22/21 03:00 Temperature 97.8 F Pulse Rate 63 76 65 Respiratory Rate 20 31 H 27 H Blood Pressure 148/66 H Pulse Oximetry 96 94 93 01/22/21 03:30 01/22/21 04:00 01/22/21 04:18 Temperature Pulse Rate 69 72 73 Respiratory Rate 22 17 16 Blood Pressure 130/67 Pulse Oximetry 95 95 94 01/22/21 04:30 01/22/21 05:00 01/22/21 05:30 Temperature Pulse Rate 70 75 66 Respiratory Rate 21 23 26 H Blood Pressure 118/78 137/63 105/56 L Pulse Oximetry 93 96 97 01/22/21 05:45 Temperature 97.3 F L Pulse Rate 72 Respiratory Rate 17 Blood Pressure 142/92 H Pulse Oximetry 98 Oxygen Delivery Method Room Air Narrative Exam Narrative: Healthy appearing older gentleman in [facility] Head: normal to inspection Ears: hearing grossly normal bilaterally Face and sinus: normal facial exam Eyes General: appearance normal, both eyes and all related structures Pupils: PERRL EOM: EOM intact bilaterally Neck Neck: normal visual inspection and full ROM Chest Chest: normal inspection of the chest Resp Effort & Inspection: normal respiratory effort and able to speak in complete sentences Auscultation: clear to auscultation bilaterally Cardio Rate: regular rate Rhythm: regular rhythm GI Inspection: distended and scar Palpation: soft Skin General: dry skin, scars and warm Neuro General: patient alert, patient awake and patient oriented x3 Extrem General: normal to inspection Psych Affect: normal affect Attitude: cooperative Thought Process: normal Thought Content: normal Judgment: judgment good Objective Labs Result Diagrams: 01/22/21 02:18 01/22/21 02:18 Labs: Laboratory Results - last 24 hr 01/22/21 01/22/21 01/22/21 02:18 02:18 02:18 WBC 7.8 RBC 4.91 Hgb 15.4 Hct 46.7 MCV 95.0 MCH 31.4 MCHC 33.1 RDW 13.6 Plt Count 189 Neut % (Auto) 71.2 Lymph % (Auto) 18.1 L Bladen % (Auto) 8.8 Eos % (Auto) 1.3 L Baso % (Auto) 0.6 Neut # (Auto) 5600 Lymph # (Auto) 1400 Bladen # (Auto) 700 Eos # (Auto) 100 Baso # (Auto) 0 Sodium 138 Potassium 4.2 Chloride 106 Carbon Dioxide 26 BUN 24 H Creatinine 0.98 Estimated GFR > 60.0 BUN/Creatinine Ratio 24.5 H Glucose 128 H Lactate Calcium 9.0 Total Bilirubin 0.8 AST 24 ALT 19 Alkaline Phosphatase 90 Total Creatine Kinase 86 CK-MB (CK-2) TNP CK-MB (CK-2) Rel Index TNP Troponin I < 0.012 Total Protein 6.7 Albumin 4.1 Globulin 2.6 Albumin/Globulin Ratio 1.6 Lipase 138 SARS-CoV-2 (PCR) 01/22/21 01/22/21 02:18 05:05 WBC RBC Hgb Hct MCV MCH MCHC RDW Plt Count Neut % (Auto) Lymph % (Auto) Bladen % (Auto) Eos % (Auto) Baso % (Auto) Neut # (Auto) Lymph # (Auto) Bladen # (Auto) Eos # (Auto) Baso # (Auto) Sodium Potassium Chloride Carbon Dioxide BUN Creatinine Estimated GFR BUN/Creatinine Ratio Glucose Lactate 1.3 Calcium Total Bilirubin AST ALT Alkaline Phosphatase Total Creatine Kinase CK-MB (CK-2) CK-MB (CK-2) Rel Index Troponin I Total Protein Albumin Globulin Albumin/Globulin Ratio Lipase SARS-CoV-2 (PCR) Negative Assessment & Plan Assessment & Plan narrative: PSBO Plan - Gastrograffin challenge Time Spent With Patient Time with patient: 30 to 49 minutes with 50% spent counseling/coordinating care Critical Care time: I spent a total of [] minutes of critical care time on this patient's care today; this time is exclusive of procedural time.
--- NOTE | 2021-01-22 12:30 | CM.DANOTE ---
DCP assessment: Patient is an 80 yr old male who was admitted for SBO now has NG tube and pending Surgery consult. CM met with patient at the bedside and explained role. Patient was alert and oriented x3 at time of visit. Patient currently lives with his Raissa in a single level home in [place]. Patient is Independent with all ADLs and drives at base line. Patient does not use any DME at home and is very active and independent. I: Medicare and AARP Plan: DC home with his VS home with home health depending on needs at DC. Currently seems very independent and HH probably wont be needed but open to it if needed at DC. CM department will follow to assist with any new needs that may arise. Kalina Burns RN Discharge Planning/Care Management CM Discharge Assessment Start: 01/22/21 12:29 Freq: Status: Active Protocol: Document 01/22/21 12:29 HS (Rec: 01/22/21 12:30 HS [id number]) Discharge Planning Assessment Assigned Mailroom Courier Kalina Burns RN DPOA/Assigned Designee Name Raissa Galeana () Contact Information [phone] Advance Directives? No History Provided By Patient Has Patient been admitted in last 30 No days? Prior Living Arrangements House Household Members spouse Type of transporation used prior to Drives own vehicle admit Independent with ADL's Yes Is patient alert and oriented? Yes Caregiver for Another No Barriers to Discharge No Discharge Plan Home Referrals Initiated None needed Whiteboard Updated in Patient Room with Yes name and ext. # of Mailroom Courier Review Status In Process Next Review Type Continued Stay Review
[2021-01-22] MEDS: SODIUM CHLORIDE 0.9% FLUSH 10 ML IV (22:08)
[2021-01-23 00:04] VITALS: BP 128/76; PULSE 69; RESP 16; TEMP 36.3; O2SAT 95
[2021-01-23 04:00] VITALS: BP 120/73; PULSE 74; RESP 12; TEMP 36.1; O2SAT 94
[2021-01-23 08:03] VITALS: BP 134/76; PULSE 77; RESP 15; TEMP 36.4; O2SAT 93
--- NOTE | 2021-01-23 08:42 | PM.DS.1 ---
History of Present Illness History of Present Illness Date Patient Seen: 01/23/21 Time Patient Seen: 08:42 Date of Onset of Symptoms: 01/22/21 Chief complaint: stomach is blown up/hurts/hard Narrative: States that abdominal pain started yesterday about 4pm. Cramping, N/V. No flatus/BM in 24 hrs. Discharge Providers Provider Date of admission: 01/22/21 05:20 Discharge Date: 01/23/21 Primary care physician: Jamilah West DO Discharge provider: Raul Cao MD Summary Hospital Course Discharge Diagnosis: PSBO Hospital Course: Admitted, given Gastrograffin and opened up Status at Discharge Cognitive/behavioral status at discharge: oriented Functional status at discharge: independent ambulation Overall status at discharge: patient is back to baseline Time Spent with Patient Time spent: Less than 30 minutes Exam Vital Signs (past 8 hours): - 01/23/21 04:00 Temperature 97.0 F L Pulse Rate 74 Respiratory Rate 12 Blood Pressure 120/73 Pulse Oximetry 94 Oxygen Delivery Method Room Air Oxygen Flow Rate 0 Const General: cooperative and healthy appearing HENMT Head: normal to inspection Eyes General: appearance normal, both eyes and all related structures Neck Neck: full ROM Resp Effort & Inspection: normal respiratory effort Auscultation: clear to auscultation bilaterally Cardio Rate: regular rate Rhythm: regular rhythm GI Palpation: soft Skin General: dry skin and warm Neuro General: patient alert, patient awake and patient oriented x3 Cognition: normal cognition Speech: speech normal Extrem General: normal to inspection and no pedal edema Psych Speech and Movement: speech and movement normal Affect: normal affect Attitude: cooperative Thought Process: normal Thought Content: normal Judgment: judgment good Objective Labs Result Diagrams: 01/22/21 02:18 01/22/21 02:18 [facility] Surgical History History of Krista fundoplication Social History household members: spouse Smoking Status: Former smoker alcohol intake: current Discharge Assessment & Plan Assessment and Plan Assessment: PSBO - resolved Plan of Treatment: Home Foloow up with LMD as needed Discharge Plan Discharge Plan Patient Disposition: Home Discharge orders & Medications Prescriptions: Continued atorvastatin 80 mg tablet 80 mg PO QPM Qty: 90 RF: 0 losartan 50 mg tablet 50 mg PO DAILY Qty: 90 RF: 0 metoprolol tartrate 25 mg tablet 25 mg PO BID Qty: 180 RF: 0 latanoprost 0.005 % drops 1 drp ophthalmic (eye) DAILY Qty: 7 RF: 0 Follow up/Referrals: Jamilah West DO [Primary Care Provider] - Diet/Activity/Treatments Diet: Diet as Tolerated Activity: As Ananya Skin/Wound/Dressing Care Report to your healthcare provider any signs of infection, such as:: chills, fever and increased pain Discharge Data Primary Care Provider: Jamilah West
--- NOTE | 2021-01-23 15:07 | CM.DPC ---
DCP Discharge Home Per Surgeon, pt is medically stable to d/c home today with no identified barriers to discharge. Per RN, no concerns noted at this time. Plan: Patient discharged home this morning via spouse POV and no further SW needs at this time. CHAO Apple
== END 2021-01-23 10:45 | disposition home or self-care (01) | DRG 390 ==
LOC: ED 05:04 → AC 05:21
PROVIDERS: Admitting Provider Surgery; Emergency Provider Emergency Medicine; PCP Family Medicine; Referring Provider Emergency Medicine; Visit Provider Surgery
DX: K56.600 Partial intestinal obstruction, unspecified as to cause (principal); I10 Essential (primary) hypertension; Z20.822 Contact with and (suspected) exposure to COVID-19; Z87.891 Personal history of nicotine dependence
CPT/HCPCS: 36415; 71045; 74018; 74177; 80053; 82550; 83605; 83690; 84484; 85025; 87635; 93005; 93010; 94762; 96361; 96374; 96375; 96376; 99221; 99238; 99284; 99285; C9803; J2270; J2405; Q9967

== ENCOUNTER 2022-02-12 17:34 | Inpatient (IN) | payer MEDICARE, OTHER, SELFPAY ==
[2021-01-22 06:06] VITALS: BMI 23.9
[2022-02-12] VITALS (9 sets, daily range): BP systolic 107–122; BP diastolic 65–70; PULSE 47–76; RESP 16–19; TEMP 36.2–36.3; O2SAT 85–99; BMI 24.4
[2022-02-12 19:01] LABS: Add Manual Diff / Slide Review NO; Basophils Absolute Auto 0 /uL (0-100); Basophils Percent Auto 0.4 % (0-2); Eosinophils Absolute Auto 100 /uL (0-450); Eosinophils Percent Auto 0.5 % (2-4); Hematocrit 48.1 % (41-53); Hemoglobin 16.2 g/dL (13.5-17.5); Lymphocytes Absolute Auto 1200 /uL (1100-4500); Lymphocytes Percent Auto 11.2 % (25-40); Mean Corpuscular HGB Conc 33.6 % (30-36); Mean Corpuscular Hemoglobin 31.7 PG (26-34); Mean Corpuscular Volume 94.4 fL (80-100); Monocytes Absolute Auto 900 /uL (0-900); Monocytes Percent Auto 8.4 % (3-14); Neutrophils Absolute Auto 8200 /uL (1500-7000); Neutrophils Percent Auto 79.5 % (50-75); Platelet Count 188 X10^3/uL (150-400); Red Blood Cell Count 5.09 X10^6/uL (4.5-5.9); Red Cell Distribution Width 14.2 % (11.6-14.8); White Blood Cell Count 10.3 X10^3/uL (4.5-11.0)
--- NOTE | 2022-02-12 19:04 | ED.ABDPAIN ---
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 He states that it is generalized and associated with a swollen abdomen. He states that he is persistently nauseated and has a decreased appetite. He is no longer passing gas and having significant pain that seems to be worse with motion and improves with rest. He is had decreased bowel movements over the past few days. He denies any issues with urination. He is had no runny nose, sore throat or cough. Denies any chest pain or shortness of breath. Related Data Home Medications Medication Instructions Recorded Confirmed atorvastatin 80 mg tablet 80 mg PO QPM #90 tabs 06/22/18 02/12/22 latanoprost 0.005 % eye drops 1 drp EYE-BOTH ONCE HS #7 mL 06/22/18 02/12/22 losartan 50 mg tablet 50 mg PO DAILY #90 tabs 06/22/18 02/12/22 metoprolol tartrate 25 mg tablet 25 mg PO BID #180 tabs 06/22/18 02/12/22 Allergies Allergy/AdvReac Type Severity Reaction Status Date / Time silver sulfadiazine Allergy Unknown Verified 10/07/19 20:48 [From [facility]] Review of Systems Review of Systems Narrative: GENERAL: See HPI HEENT: Denies sinus pain, ear pain, sore throat, difficulty swallowing, dizziness. RESPIRATORY: Denies dyspnea, cough, wheezing, hemoptysis, sputum. CARDIOVASCULAR: Denies chest pain, palpitations, orthopnea, edema, GASTROINTESTINAL: See HPI : Denies dysuria, frequency, incontinence, hematuria, urinary retention. MUSCULOSKELETAL: denies weakness, joint pain, or bony pain SKIN: Denies rash, skin lesions, or other NEUROLOGIC: Denies weakness, headache, numbness, change in speech, confusion, seizures, incoordination. PSYCHIATRIC: No concerning psychosocial issues. 12 point review of systems is negative except for those stated above Patient History Surgical History History of Krista fundoplication Social History household members: spouse Smoking Status: Former smoker alcohol intake: current Smoking Status: Former smoker alcohol intake frequency: holidays/special occasions only Substance Use Type: does not use Exam Narrative Exam Narrative: GENERAL: [81] year old patient appears stated age. Well-developed patient, in mild distress. HEAD: Atraumatic. Normocephalic. EYES: Pupils equal round and reactive. Extraocular motions intact. No scleral icterus. No injection or drainage. ENT: Nose without bleeding, purulent drainage. Throat without erythema, tonsillar hypertrophy or exudate. Airway patent. NECK: Trachea midline. Non tender CARDIOVASCULAR: Regular rate and rhythm without murmurs, gallops, or rubs. RESPIRATORY: Clear to auscultation. Breath sounds equal bilaterally. No wheezes, rales, or rhonchi. GASTROINTESTINAL: Abdomen soft, distended with decreased bowel sounds throughout, no peritoneal signs or guarding EXTREMITIES: No edema or joint tenderness. BACK: Nontender without deformity or crepitance. No flank tenderness. NEURO: AOx3. SKIN: No rash or erythema of visible areas Initial Vital Signs Initial Vital Signs: Vital Signs Temperature 97.1 F L 02/12/22 17:55 Pulse Rate 76 02/12/22 17:55 Respiratory Rate 18 02/12/22 17:55 Blood Pressure 107/70 02/12/22 17:55 Pulse Oximetry 99 02/12/22 17:55 Oxygen Delivery Method 02/12/22 17:55 Course Orders Ordered: ED Orders 02/12/22 17:59 EKG-12 Lead Stat 02/12/22 18:49 Complete Blood Count AUTO DIFF Stat Comprehensive Metabolic Panel Stat Lactate (Lactic Acid) Stat Lipase Stat Magnesium Urgent 02/12/22 19:07 CT abdomen pelvis w con Stat 02/12/22 20:18 COVID19 -Nasal RAPID/Pre-Proc Stat 02/12/22 20:52 Education, smoking cessation ONGOING 02/12/22 20:57 Consult to Physician Routine Urinalysis and Microscopic Urgent 02/13/22 05:00 Basic Metabolic Panel DAILY Complete Blood Count AUTO DIFF DAILY Prothrombin Time INR Routine 02/14/22 05:00 Basic Metabolic Panel DAILY Complete Blood Count AUTO DIFF DAILY 02/15/22 05:00 Basic Metabolic Panel DAILY Complete Blood Count AUTO DIFF DAILY Hydromorphone HCl (Hydromorphone 0.5 Mg Inj) 0.5 mg IV Q4H PRN PRN Reason: Breakthrough pain only (5-10) Last Admin: 02/12/22 22:57 Dose: 0.5 mg Documented By: CARTER Sodium Chloride (Normal Saline 0.9%) 1,000 mls @ 60 mls/hr IV CONT PAT Last Admin: 02/12/22 22:41 Dose: 60 mls/hr Documented By: CARTER Metoprolol Tartrate (Metoprolol Tartrate 5 Mg/5 Ml Inj) 2.5 mg IV Q6HR PAT Naloxone HCl (Naloxone 0.4 Mg/Ml Vial) 0.1 mg IV Q2MIN PRN PRN Reason: Opiate Reversal Ondansetron HCl (Ondansetron 4 Mg/2 Ml Inj) 4 mg IV Q4HR PRN PRN Reason: Nausea And Vomiting Last Admin: 02/12/22 22:44 Dose: 4 mg Documented By: CARTER Discontinued Medications Hydromorphone HCl (Hydromorphone 0.5 Mg Inj) 0.5 mg IV NOW ONE Stop: 02/12/22 19:08 Last Admin: 02/12/22 19:18 Dose: 0.5 mg Documented By: TEO Hydromorphone HCl (Hydromorphone 0.5 Mg Inj) 0.5 mg IV NOW ONE Stop: 02/12/22 21:37 Last Admin: 02/12/22 21:43 Dose: 0.5 mg Documented By: YAIR Sodium Chloride (Normal Saline 0.9%) 1,000 mls @ 1,000 mls/hr IV BOLUS ONE Stop: 02/12/22 20:06 Last Infusion: 02/12/22 20:35 Dose: 0 mls/hr Documented By: Admin: 02/12/22 19:18 Dose: 1,000 mls/hr Documented By: TEO Ondansetron HCl (Ondansetron 4 Mg/2 Ml Inj) 4 mg IV NOW ONE Stop: 02/12/22 19:08 Last Admin: 02/12/22 19:18 Dose: 4 mg Documented By: TEO Consultations Consultation #1: discussed with General Surgery (Davi) not surgical candidate at this time. No NG for now, unless pain worsens or develops persistent vomiting. Requests admission to hospitalist Vital Signs Vital signs: Vital Signs - 8 hr 02/12/22 17:55 02/12/22 18:38 02/12/22 19:00 Temperature 97.1 F L Pulse Rate 76 70 65 Respiratory Rate 18 19 17 Blood Pressure 107/70 Pulse Oximetry 99 95 94 Oxygen Delivery Method Room Air 02/12/22 19:30 02/12/22 20:00 02/12/22 20:30 Temperature Pulse Rate 47 L 69 70 Respiratory Rate 17 18 Blood Pressure Pulse Oximetry 85 L 96 96 Oxygen Delivery Method 02/12/22 21:00 02/12/22 20:52 Temperature Pulse Rate 71 Respiratory Rate 16 Blood Pressure Pulse Oximetry 95 96 Oxygen Delivery Method Room Air MDM - Abdominal Pain Lab Data Result diagrams: 02/12/22 18:49 02/12/22 18:49 Labs: Lab Results 02/12/22 02/12/22 02/12/22 Range/Units 18:49 18:49 18:49 WBC 10.3 (4.5-11.0) X10^3/uL RBC 5.09 (4.5-5.9) X10^6/uL Hgb 16.2 (13.5-17.5) g/dL Hct 48.1 (41-53) % MCV 94.4 (80-100) fL MCH 31.7 (26-34) PG MCHC 33.6 (30-36) % RDW 14.2 (11.6-14.8) % Plt Count 188 (150-400) X10^3/uL Neut % (Auto) 79.5 H (50-75) % Lymph % (Auto) 11.2 L (25-40) % Geary % (Auto) 8.4 (3-14) % Eos % (Auto) 0.5 L (2-4) % Baso % (Auto) 0.4 (0-2) % Neut # (Auto) 8200 H (8316-9577) /uL Lymph # (Auto) 1200 (8710-3979) /uL Geary # (Auto) 900 (0-900) /uL Eos # (Auto) 100 (0-450) /uL Baso # (Auto) 0 (0-100) /uL Sodium 139 (137-145) mmol/L Potassium 4.3 (3.4-5.1) mmol/L Chloride 105 (98-107) mmol/L Carbon Dioxide 24 (22-32) mmol/L BUN 23 H (9-20) mg/dL Creatinine 0.96 (0.66-1.25) mg/dL Estimated GFR > 60 (>60) mL/min BUN/Creatinine Ratio 24.0 H (6-22) Glucose 119 H (80-110) mg/dL Lactate 1.1 (0.7-2.1) mmol/L Calcium 8.7 (8.4-10.2) mg/dL Magnesium (1.6-2.3) mg/dL Total Bilirubin 1.1 (0.2-1.3) mg/dL AST 25 (17-59) IU/L ALT 19 (<50) IU/L Alkaline Phosphatase 97 (38-126) U/L Total Protein 7.3 (6.3-8.2) g/dL Albumin 4.3 (3.5-5.0) g/dL Globulin 3.0 (1.7-4.1) g/dL Albumin/Globulin Ratio 1.4 (1.0-2.8) Lipase 118 (23-300) U/L SARS-CoV-2 (PCR) (Negative) 02/12/22 02/12/22 Range/Units 18:49 20:18 WBC (4.5-11.0) X10^3/uL RBC (4.5-5.9) X10^6/uL Hgb (13.5-17.5) g/dL Hct (41-53) % MCV (80-100) fL MCH (26-34) PG MCHC (30-36) % RDW (11.6-14.8) % Plt Count (150-400) X10^3/uL Neut % (Auto) (50-75) % Lymph % (Auto) (25-40) % Geary % (Auto) (3-14) % Eos % (Auto) (2-4) % Baso % (Auto) (0-2) % Neut # (Auto) (0738-6196) /uL Lymph # (Auto) (8562-7474) /uL Geary # (Auto) (0-900) /uL Eos # (Auto) (0-450) /uL Baso # (Auto) (0-100) /uL Sodium (137-145) mmol/L Potassium (3.4-5.1) mmol/L Chloride (98-107) mmol/L Carbon Dioxide (22-32) mmol/L BUN (9-20) mg/dL Creatinine (0.66-1.25) mg/dL Estimated GFR (>60) mL/min BUN/Creatinine Ratio (6-22) Glucose (80-110) mg/dL Lactate (0.7-2.1) mmol/L Calcium (8.4-10.2) mg/dL Magnesium 2.2 (1.6-2.3) mg/dL Total Bilirubin (0.2-1.3) mg/dL AST (17-59) IU/L ALT (<50) IU/L Alkaline Phosphatase (38-126) U/L Total Protein (6.3-8.2) g/dL Albumin (3.5-5.0) g/dL Globulin (1.7-4.1) g/dL Albumin/Globulin Ratio (1.0-2.8) Lipase (23-300) U/L SARS-CoV-2 (PCR) Negative (Negative) Point of care testing: Point of Care Testing Glucose POC [address] scan - abdomen/pelvis: Radiologist's Impression: Harsh Galeana??81??M??1940 ? Allergy/Adv: silver sulfadiazine Close Abdomen/Pelvis CT (Signed) Lorna Dumont - 02/12/22 Chest X-Ray (Signed) Call,Jake - 01/22/21 Chest X-Ray (Signed) Lorna Dumont - 01/22/21 Abdomen/Pelvis CT (Signed) Alec Romero - 01/22/21 Gastrografin Study (Signed) Call,Jake - 01/22/21 Modified Barium Swallow (Signed) Cathy Jean - 08/13/20 Brain MRI (Signed) Broderick Cortés - 07/12/[address] (Signed) Broderick Cortés - 05/30/20 Chest/Abdomen/Pelvis CTA (Signed) Call,Jake - 10/07/19 Chest/Abdomen X-ray (Signed) Call,Jake - 10/07/19 Chest/Abdomen/Pelvis CT (Signed) Geovani Ba - 10/06/19 Chest/Abdomen X-ray (Signed) Karon Badiah - 10/06/19 Telemetry Strips 10/06/19 Abdomen/Pelvis CT (Signed) Jake Santo - 01/28/19 Retroperitoneum Ultrasound (Signed) Cathy Jean - 01/28/19 Lumbar Spine X-Ray (Signed) Johnnie Olvera - 08/11/18 Cervical/Thoracic Injection (Signed) Johnnie Olvera - 07/11/18 Launch?Image [address] [address] [address] Scan Report Signed Patient: Harsh Galeana MR#: [id number] : 1940 Acct:[id number] Age/Sex: 81 / M Date of Service: 02/12/22 Loc: ED Accession Number: [id number] ?? Procedure: CT abdomen pelvis w con Ordering Provider: Kostas Purvis D.O. PROCEDURE:? CT ABDOMEN PELVIS W CON ? INDICATIONS:? severe abdominal pain ? TECHNIQUE:? After the administration of oral and IV contrast, axial sections were acquired from the lung bases to the pubic symphysis.? Coronal and sagittal reformats were performed.? For radiation dose reduction, the following was used:? automated exposure control, adjustment of mA and/or kV according to patient size. ? COMPARISON:? [facility], CT, CT ABDOMEN PELVIS W CON, 01/22/2021, 2:50. ? FINDINGS:? Image quality:? Excellent.? ? Lung bases:? Unremarkable.? ? Heart:? Heart is present within the right chest. ? ? ABDOMEN: Liver:? Liver within the left hemiabdomen.? Multiple simple cysts are identified. Gallbladder:? Gallbladders within the left hemiabdomen and unremarkable.? ? Biliary ducts:? Unremarkable.? ? Pancreas:? Pancreatic head is within the left hemiabdomen. Spleen:? Spleen is within the right hemiabdomen and unremarkable. Adrenal Glands:? Unremarkable.? ? Kidneys and Ureters:? Nonobstructing bilateral renal calculi. ? Stomach and Bowel:? Stomach is within the right hemiabdomen.? The colon demonstrates situs.? Minimal scattered fluid-filled small bowel loops are present.? Colonic diverticula without inflammatory change. Peritoneum:? Mild dependent pelvic fluid is present. ? Ventral Wall: ? No hernia.? Abdominal Nodes:? No retroperitoneal or mesenteric adenopathy by size criteria.? Vessels:? Aorta and inferior vena cava are normal in size.? ? PELVIS: Pelvic Organs:? Unremarkable.? ? Bladder:? Unremarkable.? ? Pelvic Nodes: No enlarged lymph nodes.? Miscellaneous:? Fat containing inguinal hernias are present. ? Bones:? Unremarkable.? IMPRESSION:? ? Mildly prominent fluid-filled small bowel loops are noted suggestive of partial obstruction. ? Situs inversus.? ? Dictated by: Lorna Dumont M.D. on 02/12/2022 at 20:03 ? ? Approved by: Lorna Dumont M.D. on 02/12/2022 at 20:09 ? MDM Narrative Medical decision making narrative: Patient with severe abdominal pain, nausea decreased appetite, no longer passing gas. CT demonstrates SBO. Patient not vomiting. No WBCs, discussed with gen. surgery (Davi) no need for NG currently, will admit to hospitalist, and she will follow in consultation. Discussed with patient's , both he and she understand and agree with the plan. Discharge Plan Departure Patient Disposition: Admitted As Inpatient Clinical Impression: Small bowel obstruction Admit Date/Time: 02/12/22 21:35 Admit Provider: Lana Rojas
--- NOTE | 2022-02-12 19:07 | DI.CT.S_ITS ---
PROCEDURE: CT ABDOMEN PELVIS W CON INDICATIONS: severe abdominal pain TECHNIQUE: After the administration of oral and IV contrast, axial sections were acquired from the lung bases to the pubic symphysis. Coronal and sagittal reformats were performed. For radiation dose reduction, the following was used: automated exposure control, adjustment of mA and/or kV according to patient size. COMPARISON: [facility], CT, CT ABDOMEN PELVIS W CON, 01/22/2021, 2:50. FINDINGS: Image quality: Excellent. Lung bases: Unremarkable. Heart: Heart is present within the right chest. ABDOMEN: Liver: Liver within the left hemiabdomen. Multiple simple cysts are identified. Gallbladder: Gallbladders within the left hemiabdomen and unremarkable. Biliary ducts: Unremarkable. Pancreas: Pancreatic head is within the left hemiabdomen. Spleen: Spleen is within the right hemiabdomen and unremarkable. Adrenal Glands: Unremarkable. Kidneys and Ureters: Nonobstructing bilateral renal calculi. Stomach and Bowel: Stomach is within the right hemiabdomen. The colon demonstrates situs. Minimal scattered fluid-filled small bowel loops are present. Colonic diverticula without inflammatory change. Peritoneum: Mild dependent pelvic fluid is present. Ventral Wall: No hernia. Abdominal Nodes: No retroperitoneal or mesenteric adenopathy by size criteria. Vessels: Aorta and inferior vena cava are normal in size. PELVIS: Pelvic Organs: Unremarkable. Bladder: Unremarkable. Pelvic Nodes: No enlarged lymph nodes. Miscellaneous: Fat containing inguinal hernias are present. Bones: Unremarkable. IMPRESSION: Mildly prominent fluid-filled small bowel loops are noted suggestive of partial obstruction. Situs inversus. Dictated by: Lorna Dumont M.D. on 02/12/2022 at 20:03 Approved by: Lorna Dumont M.D. on 02/12/2022 at 20:09
[2022-02-12 19:18] LABS: Alanine Aminotransferase 19 IU/L (<50); Albumin 4.3 g/dL (3.5-5.0); Albumin Globulin Ratio 1.4 (1.0-2.8); Alkaline Phosphatase 97 U/L (38-126); Aspartate Aminotransferase 25 IU/L (17-59); Bilirubin Total 1.1 mg/dL (0.2-1.3); Blood Urea Nitrogen 23 mg/dL (9-20); Calcium 8.7 mg/dL (8.4-10.2); Carbon Dioxide 24 mmol/L (22-32); Chloride 105 mmol/L (98-107); Estimated Glomerular Filt Rate > 60 mL/min (>60); Glucose 119 mg/dL (80-110); HEMOLYSIS < 15 (0-50); Lipase 118 U/L (23-300); Potassium 4.3 mmol/L (3.4-5.1); Sodium 139 mmol/L (137-145); Total Protein 7.3 g/dL (6.3-8.2)
[2022-02-12] MEDS: ONDANSETRON 4 MG/2 ML INJ IV ×2 (19:18→22:44)
[2022-02-12] MEDS: HYDROMORPHONE 0.5 MG INJ IV ×3 (19:18→22:57)
[2022-02-12] MEDS: SODIUM CHLORIDE 0.9% 1,000 ML 1000 ML IV (19:18)
[2022-02-12 20:50] LABS: Lactate (Lactic Acid) 1.1 mmol/L (0.7-2.1)
[2022-02-12 20:52] LABS: COVID19 -Nasal RAPID Negative (Negative)
[2022-02-12 21:10] LABS: Magnesium 2.2 mg/dL (1.6-2.3)
--- NOTE | 2022-02-12 22:22 | P.HP_ITS ---
History of Present Illness History of Present Illness Date Patient Seen: 02/12/22 Time Patient Seen: 20:59 Chief complaint: Stomach pain Narrative: Harsh Galeana 81-year-old male former smoker with history of prior bowel obstruction, open heart surgery for aneurysm, occipital neuralgia left, cervical stenosis, hypertension and hyperlipidemia presents with a chief complaint of severe and worsening generalized abdominal pain over the past 24 hours.? He states that it is generalized and associated with a swollen abdomen.? He states that he is persistently nauseated and has a decreased appetite.? He is no longer passing gas and having significant pain that seems to be worse with motion and improves with rest.? He is had decreased bowel movements over the past few days.? He denies any issues with urination.? He is had no runny nose, sore throat or cough, chest pain or shortness of breath, fever, body aches, chills, any urinary symptoms frequency urgency dysuria, hematuria, any recent illness injury or trauma. Patient states that he had a banding procedure around his stomach internally and so he is unable to any longer vomit. Patient is stable upon admit, temp 97.1?, BP 107/70, HR 65, R 17, O2 saturation 94% on room air. Patient does not have a white count and CBC is unremarkable with the exception of a left shift neutrophils 8200, CMP and liver panel are also unremarkable, COVID is negative, patient's abdominal pelvis CT mildly prominent fluid-filled small bowel loops suggestive of a partial small-bowel obstruction. Patient admitted for small-bowel obstruction. Patient History Medical History (Updated 02/13/22 @ 05:34 by ANN MARIE Levy) Essential hypertension Hyperlipidemia Surgical History History of Krista fundoplication Family & Social History Family History (Updated 02/13/22 @ 05:34 by ANN MARIE Levy) Mother Hypertension Father Cancer Social History: household members spouse Safety & Behavioral: Feels Safe in Current Yes Environment Tobacco & Substance use: Smoking Status Former smoker alcohol intake current alcohol intake frequency holiday/special occasion Substance Use Type does not use Meds Home Medications and Allergies Home Medications Medication Instructions Recorded Confirmed Type atorvastatin 80 mg tablet 80 mg PO QPM #90 tabs 06/22/18 02/12/22 History latanoprost 0.005 % eye drops 1 drp EYE-BOTH ONCE HS #7 mL 06/22/18 02/12/22 History losartan 50 mg tablet 50 mg PO DAILY #90 tabs 06/22/18 02/12/22 History metoprolol tartrate 25 mg tablet 25 mg PO BID #180 tabs 06/22/18 02/12/22 History Allergies Allergy/AdvReac Type Severity Reaction Status Date / Time silver sulfadiazine Allergy Unknown Verified 10/07/19 20:48 [From Allyssa] Review of Systems Review of Systems Narrative: All 12 point systems reviewed with the patient and are negative except otherwise documented. Exam Vital Signs (past 8 hours): - 02/12/22 17:55 02/12/22 18:38 02/12/22 19:00 Temperature 97.1 F L Pulse Rate 76 70 65 Respiratory Rate 18 19 17 Blood Pressure 107/70 Pulse Oximetry 99 95 94 Oxygen Delivery Method Room Air 02/12/22 19:30 02/12/22 20:00 02/12/22 20:30 Temperature Pulse Rate 47 L 69 70 Respiratory Rate 17 18 Blood Pressure Pulse Oximetry 85 L 96 96 Oxygen Delivery Method 02/12/22 21:00 Temperature Pulse Rate 71 Respiratory Rate 16 Blood Pressure Pulse Oximetry 95 Oxygen Delivery Method Oxygen Delivery Method Room Air Narrative Exam Narrative: GENERAL: [81] year old patient appears stated age. Well-developed patient, in no distress at this time. HEAD: Atraumatic. Normocephalic. EYES: Pupils equal round and reactive. Extraocular motions intact. No scleral icterus. No injection or drainage. ENT: Nose without bleeding, purulent drainage. Throat without erythema, tonsillar hypertrophy or exudate. Airway patent. NECK: Trachea midline. Non tender CARDIOVASCULAR: Regular rate and rhythm without murmurs, gallops, or rubs. RESPIRATORY: Clear to auscultation. Breath sounds equal bilaterally. No wheezes, rales, or rhonchi.? GASTROINTESTINAL: Abdomen soft, distended with decreased bowel sounds throughout, no peritoneal signs or guarding EXTREMITIES: No edema or joint tenderness. BACK: Nontender without deformity or crepitance. No flank tenderness. NEURO: AOx3. SKIN: No rash or erythema of visible areas Objective Labs Result Diagrams: 02/12/22 18:49 02/12/22 18:49 Labs: Laboratory Results - last 24 hr 10/14/22 10/14/22 10/14/22 18:49 18:49 18:49 WBC 10.3 RBC 5.09 Hgb 16.2 Hct 48.1 MCV 94.4 MCH 31.7 MCHC 33.6 RDW 14.2 Plt Count 188 Neut % (Auto) 79.5 H Lymph % (Auto) 11.2 L [place] % (Auto) 8.4 Eos % (Auto) 0.5 L Baso % (Auto) 0.4 Neut # (Auto) 8200 H Lymph # (Auto) 1200 [place] # (Auto) 900 Eos # (Auto) 100 Baso # (Auto) 0 Sodium 139 Potassium 4.3 Chloride 105 Carbon Dioxide 24 BUN 23 H Creatinine 0.96 Estimated GFR > 60 BUN/Creatinine Ratio 24.0 H Glucose 119 H Lactate 1.1 Calcium 8.7 Magnesium Total Bilirubin 1.1 AST 25 ALT 19 Alkaline Phosphatase 97 Total Protein 7.3 Albumin 4.3 Globulin 3.0 Albumin/Globulin Ratio 1.4 Lipase 118 SARS-CoV-2 (PCR) 02/12/22 02/12/22 18:49 20:18 WBC RBC Hgb Hct MCV MCH MCHC RDW Plt Count Neut % (Auto) Lymph % (Auto) [place] % (Auto) Eos % (Auto) Baso % (Auto) Neut # (Auto) Lymph # (Auto) [place] # (Auto) Eos # (Auto) Baso # (Auto) Sodium Potassium Chloride Carbon Dioxide BUN Creatinine Estimated GFR BUN/Creatinine Ratio Glucose Lactate Calcium Magnesium 2.2 Total Bilirubin AST ALT Alkaline Phosphatase Total Protein Albumin Globulin Albumin/Globulin Ratio Lipase SARS-CoV-2 (PCR) Negative Assessment & Plan Assessment & Plan narrative: Harsh Galeana 81-year-old male former smoker with history of prior bowel obstruction, open heart surgery for aneurysm, occipital neuralgia left, cervical stenosis, hypertension and hyperlipidemia presents with a chief complaint of severe and worsening generalized abdominal pain over the past [address] hours[address] Daniel ramsey to consult regarding partial small-bowel obstruction. 1. Small-bowel obstruction, acute, patient has had at least 2 prior small-bowel obstructions, present on admission -patient is stable and in no distress at this time -NPO -gentle fluid hydration NS at 60 cc/HR -Dr. Tomlinson to consult -blood sugar checks q.6 hours while NPO -pain control and antiemetics -if patient begins to vomit will place NG tube 2. Essential hypertension, chronic, present on admission-controlled -hold p.o. losartan and metoprolol will replace with metoprolol 2.5 mg IV q.6 hours as needed for blood pressure control 3. Hyperlipidemia, chronic, present on admission -hold patient's Lipitor until no longer NPO Code status:DNR Surrogate decision maker: Gene herzog SIMONE PCR: Negative DVT/VTE prophylaxis: Held medication due to possible surgical consult, SCDs only Disposition: Patient admitted for surgical consult regarding small-bowel obstruction expected length of stay greater than 2 midnights I have utilized all available immediate resources to obtain, update, or review the patient's current medications. I confirmed that the patient's advanced care plan is present, Code status is documented and/or surrogate decision maker is listed in the patient's medical record. Time Spent With Patient Critical Care time: I spent a total of [] minutes of critical care time on this patient's care today; this time is exclusive of procedural time.
[2022-02-12] MEDS: SODIUM CHLORIDE 0.9% 1,000 ML 60 ML IV (22:41)
[2022-02-13] VITALS (10 sets, daily range): BP systolic 108–145; BP diastolic 53–62; PULSE 53–74; RESP 16–20; TEMP 36.2–36.7; O2SAT 93–97
[2022-02-13] MEDS: ONDANSETRON 4 MG/2 ML INJ IV (02:14)
[2022-02-13] MEDS: HYDROMORPHONE 0.5 MG INJ IV ×2 (02:14→10:32)
--- NOTE | 2022-02-13 02:48 | PC.ADMIT ---
1261 [facility] Admission Note:Patient admitted to AC unit at 22:20 from ED transported via wheelchair. Alert and oriented x 4, able to make needs known. Patient oriented to room and shown how to use call light, calling appropriately. Bed in low position and brakes are locked. NS running @ 60/hr. Diet is NPO. The patient,Harsh Galeana,81 y/o, was given written information regarding hospital policies, unit procedures and contact persons. Patient's smoking status: Former smoker. Vital Signs - 8 hr 02/12/22 19:00 02/12/22 19:30 02/12/22 20:00 Temperature Pulse Rate 65 47 L 69 Respiratory Rate 17 17 Blood Pressure Pulse Oximetry 94 85 L 96 Oxygen Delivery Method Oxygen Flow Rate 02/12/22 20:30 02/12/22 21:00 02/12/22 20:52 Temperature Pulse Rate 70 71 Respiratory Rate 18 16 Blood Pressure Pulse Oximetry 96 95 96 Oxygen Delivery Method Room Air Oxygen Flow Rate 02/12/22 22:20 02/13/22 00:52 02/13/22 02:00 Temperature 97.3 F L 97.3 F L Pulse Rate 75 67 Respiratory Rate 18 18 Blood Pressure 122/65 128/60 Pulse Oximetry 96 96 94 Oxygen Delivery Method Room Air Oxygen Flow Rate 0 0
[2022-02-13 06:38] LABS: Add Manual Diff / Slide Review NO; Basophils Absolute Auto 0 /uL (0-100); Basophils Percent Auto 0.5 % (0-2); Eosinophils Absolute Auto 0 /uL (0-450); Eosinophils Percent Auto 0.1 % (2-4); Hematocrit 44.8 % (41-53); Hemoglobin 15.1 g/dL (13.5-17.5); Lymphocytes Absolute Auto 600 /uL (1100-4500); Lymphocytes Percent Auto 10.4 % (25-40); Mean Corpuscular HGB Conc 33.8 % (30-36); Mean Corpuscular Hemoglobin 31.8 PG (26-34); Monocytes Absolute Auto 700 /uL (0-900); Monocytes Percent Auto 10.9 % (3-14); Neutrophils Absolute Auto 4900 /uL (1500-7000); Neutrophils Percent Auto 78.1 % (50-75); Platelet Count 166 X10^3/uL (150-400); Red Blood Cell Count 4.77 X10^6/uL (4.5-5.9); Red Cell Distribution Width 14.3 % (11.6-14.8); White Blood Cell Count 6.2 X10^3/uL (4.5-11.0)
[2022-02-13 06:42] LABS: INR 1.1 (0.9-1.3); Prothrombin Time 12.9 SECONDS (10.1-12.7)
[2022-02-13 06:53] LABS: BUN Creatinine Ratio 29.6 (6-22); Blood Urea Nitrogen 24 mg/dL (9-20); Calcium 8.1 mg/dL (8.4-10.2); Carbon Dioxide 25 mmol/L (22-32); Chloride 106 mmol/L (98-107); Estimated Glomerular Filt Rate > 60 mL/min (>60); Glucose 122 mg/dL (80-110); HEMOLYSIS < 15 (0-50); Potassium 4.6 mmol/L (3.4-5.1); Sodium 138 mmol/L (137-145)
--- NOTE | 2022-02-13 09:51 | P.CONS_ITS ---
History of Present Illness Consult details Date Patient Seen: 02/13/22 Time Patient Seen: 09:51 Chief complaint: Stomach pain Reason for consult: partial SBO Requesting provider: Kostas Purvis Narrative: Already feels better, passing gas. felt unwell yesterday and has h/o SBO. Came to ED for evaluation and CT scan that I reviewed showed mildly dilated SB with gastric distension (mostly air). No pain today, hungry and feels that things have resolved. Meds Home Medications and Allergies Home Medications Medication Instructions Recorded Confirmed Type atorvastatin 80 mg tablet 80 mg PO QPM #90 tabs 06/22/18 02/12/22 History latanoprost 0.005 % eye drops 1 drp EYE-BOTH ONCE HS #7 mL 06/22/18 02/12/22 History losartan 50 mg tablet 50 mg PO DAILY #90 tabs 06/22/18 02/12/22 History metoprolol tartrate 25 mg tablet 25 mg PO BID #180 tabs 06/22/18 02/12/22 History Allergies Allergy/AdvReac Type Severity Reaction Status Date / Time silver sulfadiazine Allergy Unknown Verified 10/07/19 20:48 [From Allyssa] Review of Systems Review of Systems ROS: Yes All systems reviewed with the patient and are negative except as otherwise documented Exam Vital Signs (past 8 hours): - 02/13/22 02:00 02/13/22 04:00 02/13/22 06:00 Temperature 97.3 F L 97.9 F Pulse Rate 67 74 Respiratory Rate 18 18 Blood Pressure 128/60 108/53 L Pulse Oximetry 94 94 96 Oxygen Delivery Method Room Air Oxygen Flow Rate 0 02/13/22 08:32 Temperature 97.2 F L Pulse Rate 73 Respiratory Rate 18 Blood Pressure 128/59 L Pulse Oximetry 93 Oxygen Delivery Method Oxygen Flow Rate 0 Oxygen Delivery Method Room Air Oxygen Flow Rate 0 Const General: cooperative, healthy appearing and comfortable [facility] Head: normocephalic and atraumatic Eyes General: appearance normal, both eyes and all related structures Neck Neck: normal visual inspection and trachea midline Chest Chest: normal inspection of the chest Resp Effort & Inspection: normal respiratory effort and able to speak in complete sentences Cardio Rate: regular rate Rhythm: regular rhythm GI Palpation: soft Other: not distended, non tender abdomen Skin General: atrophy and dry skin Neuro General: patient alert, patient awake and patient oriented x3 Extrem General: normal to inspection Psych Appearance: grossly normal Mental Status: mental status grossly normal Attitude: cooperative Judgment: judgment good Objective Labs Result Diagrams: 02/13/22 05:54 02/13/22 05:54 Labs: Laboratory Results - last 24 hr 02/12/22 02/12/22 02/12/22 18:49 18:49 18:49 WBC 10.3 RBC 5.09 Hgb 16.2 Hct 48.1 MCV 94.4 MCH 31.7 MCHC 33.6 RDW 14.2 Plt Count 188 Neut % (Auto) 79.5 H Lymph % (Auto) 11.2 L [place] % (Auto) 8.4 Eos % (Auto) 0.5 L Baso % (Auto) 0.4 Neut # (Auto) 8200 H Lymph # (Auto) 1200 [place] # (Auto) 900 Eos # (Auto) 100 Baso # (Auto) 0 PT INR Sodium 139 Potassium 4.3 Chloride 105 Carbon Dioxide 24 BUN 23 H Creatinine 0.96 Estimated GFR > 60 BUN/Creatinine Ratio 24.0 H Glucose 119 H Lactate 1.1 Calcium 8.7 Magnesium Total Bilirubin 1.1 AST 25 ALT 19 Alkaline Phosphatase 97 Total Protein 7.3 Albumin 4.3 Globulin 3.0 Albumin/Globulin Ratio 1.4 Lipase 118 SARS-CoV-2 (PCR) 02/12/22 02/12/22 02/13/22 18:49 20:18 05:54 WBC 6.2 RBC 4.77 Hgb 15.1 Hct 44.8 MCV 94.0 MCH 31.8 MCHC 33.8 RDW 14.3 Plt Count 166 Neut % (Auto) 78.1 H Lymph % (Auto) 10.4 L [place] % (Auto) 10.9 Eos % (Auto) 0.1 L Baso % (Auto) 0.5 Neut # (Auto) 4900 Lymph # (Auto) 600 L [place] # (Auto) 700 Eos # (Auto) 0 Baso # (Auto) 0 PT INR Sodium Potassium Chloride Carbon Dioxide BUN Creatinine Estimated GFR BUN/Creatinine Ratio Glucose Lactate Calcium Magnesium 2.2 Total Bilirubin AST ALT Alkaline Phosphatase Total Protein Albumin Globulin Albumin/Globulin Ratio Lipase SARS-CoV-2 (PCR) Negative 02/13/22 02/13/22 05:54 05:54 WBC RBC Hgb Hct MCV MCH MCHC RDW Plt Count Neut % (Auto) Lymph % (Auto) [place] % (Auto) Eos % (Auto) Baso % (Auto) Neut # (Auto) Lymph # (Auto) [place] # (Auto) Eos # (Auto) Baso # (Auto) PT 12.9 H INR 1.1 Sodium 138 Potassium 4.6 Chloride 106 Carbon Dioxide 25 BUN 24 H Creatinine 0.81 Estimated GFR > 60 BUN/Creatinine Ratio 29.6 H Glucose 122 H Lactate Calcium 8.1 L Magnesium Total Bilirubin AST ALT Alkaline Phosphatase Total Protein Albumin Globulin Albumin/Globulin Ratio Lipase SARS-CoV-2 (PCR) [facility] Medical History Essential hypertension Hyperlipidemia Surgical History History of Krista fundoplication Family History Mother Hypertension Father Cancer Social History household members: spouse Tobacco & Substance Use Smoking Status: Former smoker alcohol intake: current Assessment & Plan Assessment & Plan narrative: SBO in situs inversus. now resolving Plan: restart diet at clear liquid and advance as tolerated COVID-19 COVID-19 status: Negative Time Spent With Patient Time with patient: less than 30 minutes Critical Care time: I spent a total of [] minutes of critical care time on this patient's care today; this time is exclusive of procedural time.
--- NOTE | 2022-02-13 11:33 | PC.NURSE ---
Patient is passing some gas, Dr. Tomlinson in to see patient and he will not have surgery. He is alert and oriented x3, states that he does have some early onset dementia. Patients organs are also on the opposite side of his body. Drs aware of this. He is tolerating clear liquids well.
--- NOTE | 2022-02-13 13:39 | CM.DANOTE ---
Initial Discharge Assessment: Case reviewed, met with patient and spouse. Introduced self and role. Payer: Medicare and [employer] PCP: Jamilah West 81 year old male admitted last pm with complaint of abdominal pain and dx'd with SBO. Patient was seen by surgeon for consult and no surgery planned. Patient has started on clear liquid diet. at bedside. Patient and spouse live in their own home in [place]. He is pleasant, A/O, a little slowed cognition. He states he is feeling a little better. Patient independent in most ADLs, spouse assists as needed. Plan: When medically cleared, discharge home to [place] with spouse who will transport SEJ Discharge Planning/Care Management CM Discharge Assessment Start: 02/13/22 13:36 Freq: Status: Active Protocol: Document 02/13/22 13:36 (Rec: 02/13/22 13:38 [id number]) Discharge Planning Assessment Assigned Plate Hanger Tierra Zaidi RN/DCP Advance Directives? No History Provided By Patient Prior Living Arrangements House Household Members spouse Type of transporation used prior to Relies on Others admit Independent with ADL's Yes: helps as needed Is patient alert and oriented? Yes Needs Assistance With Bathing,Meal Prep,Managing Medications,Home Chores / Shopping Caregiver for Another No DME Already Rented / Owned Bath Bench,Cane Barriers to Discharge No Discharge Plan Home Referrals Initiated None needed Whiteboard Updated in Patient Room with Yes name and ext. # of Plate Hanger Review Status In Process Next Review Type Continued Stay Review
--- NOTE | 2022-02-13 17:30 | P.PN_ITS ---
Subjective Subjective Date Patient Seen: 02/13/22 Interval history: Patient's present at bedside this afternoon, was concerned about patient's abdominal distention because of his Krista fundoplication and unable to throw up. Patient this morning was feeling better with decreased abdominal distention and pain. I had a conversation with Dr. Tomlinson-surgeon, recommended to proceed with advancing the clear liquid diet. Patient had clear liquid diet for lunch, did tolerate it well. But after the diet patient started having abdominal distention and mild discomfort. Patient denies any nausea or vomiting at this time. Patient did not had a bowel movement but confirms that he might be passing gas. Patient denies any other symptoms. At baseline he is active and ambulates without any difficulty. No chest pain no breathing difficulties and no fever. Exam Vital Signs (past 8 hours): - 02/13/22 11:25 02/13/22 14:00 Temperature 97.2 F L Pulse Rate 63 Respiratory Rate 18 Blood Pressure 125/59 L Pulse Oximetry 94 Oxygen Delivery Method Room Air Oxygen Flow Rate 0 Oxygen Delivery Method Room Air Oxygen Flow Rate 0 Narrative Exam Narrative: On examination patient abdomen is distended compared to morning time, bowel sounds heard okay, no apparent guarding or rigidity, mild tenderness in periumbilical area on deep palpation. No organomegaly noted. 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 Constitutional, HEENT, neuro, psych, cardiovascular exam within normal limits other than as mentioned above. Objective Labs Result Diagrams: 02/13/22 05:54 02/13/22 05:54 Labs: Laboratory Results - last 24 hr 02/12/22 02/12/22 02/12/22 18:49 18:49 18:49 WBC 10.3 RBC 5.09 Hgb 16.2 Hct 48.1 MCV 94.4 MCH 31.7 MCHC 33.6 RDW 14.2 Plt Count 188 Neut % (Auto) 79.5 H Lymph % (Auto) 11.2 L [place] % (Auto) 8.4 Eos % (Auto) 0.5 L Baso % (Auto) 0.4 Neut # (Auto) 8200 H Lymph # (Auto) 1200 [place] # (Auto) 900 Eos # (Auto) 100 Baso # (Auto) 0 PT INR Sodium 139 Potassium 4.3 Chloride 105 Carbon Dioxide 24 BUN 23 H Creatinine 0.96 Estimated GFR > 60 BUN/Creatinine Ratio 24.0 H Glucose 119 H Lactate 1.1 Calcium 8.7 Magnesium Total Bilirubin 1.1 AST 25 ALT 19 Alkaline Phosphatase 97 Total Protein 7.3 Albumin 4.3 Globulin 3.0 Albumin/Globulin Ratio 1.4 Lipase 118 SARS-CoV-2 (PCR) 02/12/22 02/12/22 02/13/22 18:49 20:18 05:54 WBC 6.2 RBC 4.77 Hgb 15.1 Hct 44.8 MCV 94.0 MCH 31.8 MCHC 33.8 RDW 14.3 Plt Count 166 Neut % (Auto) 78.1 H Lymph % (Auto) 10.4 L [place] % (Auto) 10.9 Eos % (Auto) 0.1 L Baso % (Auto) 0.5 Neut # (Auto) 4900 Lymph # (Auto) 600 L [place] # (Auto) 700 Eos # (Auto) 0 Baso # (Auto) 0 PT INR Sodium Potassium Chloride Carbon Dioxide BUN Creatinine Estimated GFR BUN/Creatinine Ratio Glucose Lactate Calcium Magnesium 2.2 Total Bilirubin AST ALT Alkaline Phosphatase Total Protein Albumin Globulin Albumin/Globulin Ratio Lipase SARS-CoV-2 (PCR) Negative 02/13/22 02/13/22 05:54 05:54 WBC RBC Hgb Hct MCV MCH MCHC RDW Plt Count Neut % (Auto) Lymph % (Auto) [place] % (Auto) Eos % (Auto) Baso % (Auto) Neut # (Auto) Lymph # (Auto) [place] # (Auto) Eos # (Auto) Baso # (Auto) PT 12.9 H INR 1.1 Sodium 138 Potassium 4.6 Chloride 106 Carbon Dioxide 25 BUN 24 H Creatinine 0.81 Estimated GFR > 60 BUN/Creatinine Ratio 29.6 H Glucose 122 H Lactate Calcium 8.1 L Magnesium Total Bilirubin AST ALT Alkaline Phosphatase Total Protein Albumin Globulin Albumin/Globulin Ratio Lipase SARS-CoV-2 (PCR) [facility] Medical History Essential hypertension Hyperlipidemia Surgical History History of Krista fundoplication Family History Mother Hypertension Father Cancer Social History household members: spouse Smoking Status: Former smoker alcohol intake: current Assessment & Plan Assessment and plan (1) Small bowel obstruction: Status: Acute Assessment & Plan narrative: Small-bowel obstruction with abdominal distention -slowly improving, initially was NPO, now advancing clear liquids, continue to monitor, repeat KUB in the morning, patient can not be safely discharged unless he is having less distention and bowel movement. Other medical conditions Hyperlipidemia Hypertension DVT and GI prophylaxis reviewed, ambulation as tolerated, SCDs, ppi Patient is full code Care plan extensively discussed with the patient and also at bedside, ans wered all questions If clinically improves potential discharge in the morning Time Spent With Patient Critical Care time: I spent a total of [] minutes of critical care time on this patient's care today; this time is exclusive of procedural time. Quality VTE Deep Vein Thrombosis/Pulmonary Embolism Present on Admission: No
[2022-02-13] MEDS: SODIUM CHLORIDE 0.9% 1,000 ML 60 ML IV (18:10)
[2022-02-13] MEDS: METOPROLOL IR 25 MG TABLET PO (20:18)
[2022-02-14 03:57] VITALS: BP 131/67; PULSE 61; TEMP 36.3; O2SAT 95
[2022-02-14 05:56] LABS: Add Manual Diff / Slide Review NO; Basophils Absolute Auto 0 /uL (0-100); Basophils Percent Auto 0.9 % (0-2); Eosinophils Absolute Auto 200 /uL (0-450); Eosinophils Percent Auto 4.5 % (2-4); Hematocrit 41.3 % (41-53); Hemoglobin 14.2 g/dL (13.5-17.5); Lymphocytes Absolute Auto 1200 /uL (1100-4500); Lymphocytes Percent Auto 32.8 % (25-40); Mean Corpuscular HGB Conc 34.4 % (30-36); Mean Corpuscular Hemoglobin 32.2 PG (26-34); Mean Corpuscular Volume 93.7 fL (80-100); Monocytes Absolute Auto 500 /uL (0-900); Monocytes Percent Auto 13.6 % (3-14); Neutrophils Absolute Auto 1800 /uL (1500-7000); Neutrophils Percent Auto 48.2 % (50-75); Platelet Count 145 X10^3/uL (150-400); Red Blood Cell Count 4.41 X10^6/uL (4.5-5.9); Red Cell Distribution Width 14.1 % (11.6-14.8); White Blood Cell Count 3.8 X10^3/uL (4.5-11.0)
[2022-02-14 06:11] LABS: BUN Creatinine Ratio 17.6 (6-22); Blood Urea Nitrogen 16 mg/dL (9-20); Calcium 7.7 mg/dL (8.4-10.2); Carbon Dioxide 26 mmol/L (22-32); Chloride 107 mmol/L (98-107); Estimated Glomerular Filt Rate > 60 mL/min (>60); Glucose 86 mg/dL (80-110); HEMOLYSIS < 15 (0-50); Potassium 4.1 mmol/L (3.4-5.1); Sodium 138 mmol/L (137-145)
[2022-02-14 07:00] VITALS: BP 124/63; PULSE 55; RESP 18; TEMP 36.3; O2SAT 95
[2022-02-14] MEDS: BISACODYL 10 MG SUPP PR (08:33)
[2022-02-14] MEDS: ENOXAPARIN 40 MG/0.4 ML SYRINGE SUBCUT (08:33)
[2022-02-14] MEDS: METOPROLOL IR 25 MG TABLET PO (08:33)
[2022-02-14] MEDS: SODIUM CHLORIDE 0.9% 1,000 ML 60 ML IV (10:16)
--- NOTE | 2022-02-14 10:19 | PC.NURSE ---
suppository given and he ambulated in hallways with ER PHYSICIAN. pt passed plenty of gas and had a moderate size BM-formed.
--- NOTE | 2022-02-14 10:30 | P.PN_ITS ---
Subjective Subjective Date Patient Seen: 02/14/22 Interval history: passing large volume gas, no BM yet. still have gas pains in abdomen, but tolerating . Exam Vital Signs (past 8 hours): - 02/14/22 03:57 02/14/22 07:00 Temperature 97.3 F L 97.3 F L Pulse Rate 61 55 L Respiratory Rate 18 Blood Pressure 131/67 124/63 Pulse Oximetry 95 95 Oxygen Flow Rate 0 Oxygen Delivery Method Room Air Oxygen Flow Rate 0 Narrative Exam Narrative: Abdomen distended but soft and non tender. Objective Labs Result Diagrams: 02/14/22 05:43 02/14/22 05:43 Labs: Laboratory Results - last 24 hr 02/14/22 02/14/22 05:43 05:43 WBC 3.8 L RBC 4.41 L Hgb 14.2 Hct 41.3 MCV 93.7 MCH 32.2 MCHC 34.4 RDW 14.1 Plt Count 145 L Neut % (Auto) 48.2 L D Lymph % (Auto) 32.8 D [place] % (Auto) 13.6 Eos % (Auto) 4.5 H Baso % (Auto) 0.9 Neut # (Auto) 1800 Lymph # (Auto) 1200 [place] # (Auto) 500 Eos # (Auto) 200 Baso # (Auto) 0 Sodium 138 Potassium 4.1 Chloride 107 Carbon Dioxide 26 BUN 16 Creatinine 0.91 Estimated GFR > 60 BUN/Creatinine Ratio 17.6 Glucose 86 Calcium 7.7 L [facility] Medical History Essential hypertension Hyperlipidemia Surgical History History of Krista fundoplication Family History Mother Hypertension Father Cancer Social History household members: spouse Smoking Status: Former smoker alcohol intake: current Assessment & Plan Assessment & Plan narrative: Resolved SBO. Plan: advance diet, possible home today Time Spent With Patient Time with patient: less than 30 minutes Critical Care time: I spent a total of [] minutes of critical care time on this patient's care today; this time is exclusive of procedural time. Quality VTE Deep Vein Thrombosis/Pulmonary Embolism Present on Admission: No
[2022-02-14 11:00] VITALS: BP 126/62; PULSE 54; RESP 16; TEMP 36.4; O2SAT 97
--- NOTE | 2022-02-14 13:58 | PC.NURSE ---
Addendum entered by Kurt Ewing R.N. 02/14/22 14:30: Pt escorted out to son's vehicle. Left in stable condition, get self into jeep without assistance. Original Note: Discharge note: Patient teaching done at bedside with patient. Alot of time was spent discussing Low-Residual diet and paperwork was given on to do's and dont's foods. Patient was educated about making small changes to his daily diet to help prevention of re-occurrence. Son was called for sweet pickle maker and will call when he arrives to ER entrance. IV was removed, w/ no difficulty. Patients VSS, A&O x4.
--- NOTE | 2022-02-14 15:57 | P.DS_ITS ---
History of Present Illness History of Present Illness Date Patient Seen: 02/14/22 Chief complaint: Stomach pain Narrative: From admission note: Harsh Galeana 81-year-old male former smoker with history of prior bowel obstruction, open heart surgery for aneurysm, occipital neuralgia left, cervical stenosis, hypertension and hyperlipidemia presents with a chief complaint of severe and worsening generalized abdominal pain over the past 24 hours.? He states that it is generalized and associated with a swollen abdomen.? He states that he is persistently nauseated and has a decreased appetite.? He is no longer passing gas and having significant pain that seems to be worse with motion and improves with rest.? He is had decreased bowel movements over the past few days.? He denies any issues with urination.? He is had no runny nose, sore throat or cough, chest pain or shortness of breath, fever, body aches, chills, any urinary symptoms frequency urgency dysuria, hematuria, any recent illness injury or trauma.? Patient states that he had a banding procedure around his stomach internally and so he is unable to any longer vomit. Patient is stable upon admit, temp 97.1?, BP 107/70, HR 65, R 17, O2 saturation 94% on room air.? Patient does not have a white count and CBC is unremarkable with the exception of a left shift neutrophils 8200, CMP and liver panel are a lso unremarkable, COVID is negative, patient's abdominal pelvis CT mildly prominent fluid-filled small bowel loops suggestive of a partial small-bowel obstruction.? Patient admitted for small-bowel obstruction. Discharge Providers Provider Date of admission: 02/12/22 21:35 Discharge Date: 02/14/22 Primary care physician: Jamilah West DO Consults: 02/12/22 20:57 Consult to Physician Routine Comment: Consulting Provider: Gema Tomlinson Reason for consultation: PSBO Has provider been notified: Yes 02/13/22 07:05 Consult to General Surgery Routine Comment: Consulting Provider: Gema Tomlinson Reason for consultation: SBO Has provider been notified: Yes Discharge provider: Nitesh Ferrari MD Summary Hospital Course Discharge Diagnosis: Small-bowel obstruction Essential hypertension Hyperlipidemia Hospital Course: Patient admitted for small-bowel obstruction as confirmed by imaging studies. Patient was kept NPO, evaluated by surgery. NG tube was not required, bowel rest help. Patient got IV fluids. Advanced diet slowly, able to tolerate, had a bowel movement during this hospitalization, discharged home with a close follow-up. Status at Discharge Cognitive/behavioral status at discharge: at baseline, oriented Functional status at discharge: independent ambulation Overall status at discharge: patient is progressing back to baseline Exam Vital Signs (past 8 hours): - 02/14/22 11:00 Temperature 97.6 F Pulse Rate 54 L Respiratory Rate 16 Blood Pressure 126/62 Pulse Oximetry 97 Oxygen Flow Rate 0 Oxygen Delivery Method Room Air Oxygen Flow Rate 0 Narrative Exam Narrative: Abdominal distention significantly improved, pain significantly improved, bowel sounds heard okay, exam close to baseline. Objective Labs Result Diagrams: 02/14/22 05:43 02/14/22 05:43 Labs: Laboratory Results - last 24 hr 02/14/22 02/14/22 05:43 05:43 WBC 3.8 L RBC 4.41 L Hgb 14.2 Hct 41.3 MCV 93.7 MCH 32.2 MCHC 34.4 RDW 14.1 Plt Count 145 L Neut % (Auto) 48.2 L D Lymph % (Auto) 32.8 D Baldwin % (Auto) 13.6 Eos % (Auto) 4.5 H Baso % (Auto) 0.9 Neut # (Auto) 1800 Lymph # (Auto) 1200 Baldwin # (Auto) 500 Eos # (Auto) 200 Baso # (Auto) 0 Sodium 138 Potassium 4.1 Chloride 107 Carbon Dioxide 26 BUN 16 Creatinine 0.91 Estimated GFR > 60 BUN/Creatinine Ratio 17.6 Glucose 86 Calcium 7.7 L [facility] Medical History Essential hypertension Hyperlipidemia Surgical History History of Krista fundoplication Family History Mother Hypertension Father Cancer Social History household members: spouse Smoking Status: Former smoker alcohol intake: current Discharge Assessment & Plan Assessment and Plan Assessment: From admission note: Assessment & Plan narrative: Harsh Galeana 81-year-old male former smoker with history of prior bowel obstruction, open heart surgery for aneurysm, occipital neuralgia left, cervical stenosis, hypertension and hyperlipidemia presents with a chief complaint of severe and worsening generalized abdominal pain over the past [address] Tomlinson to consult regarding partial small-bowel obstruction. 1. Small-bowel obstruction, acute, patient has had at least 2 prior small-bowel obstructions, present on admission -patient is stable and in no distress at this time -NPO -gentle fluid hydration NS at 60 cc/HR -Dr. Tomlinson to consult -blood sugar checks q.6 hours while NPO -pain control and antiemetics -if patient begins to vomit will place NG tube 2. Essential hypertension, chronic, present on admission-controlled -hold p.o. losartan and metoprolol will replace with metoprolol 2.5 mg IV q.6 hours as needed for blood pressure control 3. Hyperlipidemia, chronic, present on admission -hold patient's Lipitor until no longer NPO Code status:DNR Surrogate decision maker:? Gene COVID PCR:? Negative DVT/VTE prophylaxis:? Held medication due to possible surgical consult, SCDs only Disposition:? Patient admitted for surgical consult regarding small-bowel o bstruction expected length of stay greater than 2 midnights Plan of Treatment: Refer to hospital course and follow-up. Discharge Plan Discharge Plan Patient Disposition: Home Discharge orders & Medications Prescriptions: Continued atorvastatin 80 mg tablet 80 mg PO QPM Qty: 90 losartan 50 mg tablet 50 mg PO DAILY Qty: 90 metoprolol tartrate 25 mg tablet 25 mg PO BID Qty: 180 latanoprost 0.005 % drops 1 drp EYE-BOTH ONCE HS Qty: 7 Follow up/Referrals: Jamilah West DO [Primary Care Provider] - Visit Report/Discharge Packet Instructions: Low-Fiber/Low-Residue Diet, DI for Small Bowel Obstruction Discharge Data Primary Care Provider: Jamilah West Quality VTE Deep Vein Thrombosis/Pulmonary Embolism Present on Admission: No
== END 2022-02-14 14:00 | disposition home or self-care (01) | DRG 390 ==
LOC: ED 18:53 → AC 21:36
PROVIDERS: Admitting Provider Nurse Practitioner Family; Emergency Provider Emergency Medicine; PCP Family Medicine; Referring Provider Emergency Medicine; Visit Provider Nurse Practitioner Family
DX: K56.600 Partial intestinal obstruction, unspecified as to cause (principal); I10 Essential (primary) hypertension; E78.5 Hyperlipidemia, unspecified; Z66 Do not resuscitate; Z87.891 Personal history of nicotine dependence; Z20.822 Contact with and (suspected) exposure to COVID-19
CPT/HCPCS: 36415; 74177; 80048; 80053; 82962; 83605; 83690; 83735; 85025; 85610; 87635; 93005; 93010; 96374; 96375; 96376; 99231; 99284; C9803; J1170; J1650; J2405; Q9967

== ENCOUNTER 2024-05-23 12:58 | Outpatient (RCR) | payer MEDICARE, OTHER, SELFPAY ==
[2022-02-12 22:06] VITALS: BMI 24.4
--- NOTE | 2024-05-23 14:57 | ST.OPIE ---
Visit Care Team Role Provider Type Jamilah West DO Primary Care Provider Non-Staff Specialty: Family Practice Address: [address] [place] [address], [place], [address] Email: Dawson Don MD Attending Provider Physician Referring Provider Specialty: Ear, Nose, Throat Address: [address] [place] [address], [id number] Email: [email or web address] Speech-Language Pathology Initial Evaluation CAMERA SUPERVISOR Clinical Swallow Evaluation Start: 05/23/24 14:18 Freq: Status: Active Protocol: Document 05/23/24 14:18 SS (Rec: 05/23/24 14:57 SS [id number]) Clinical Swallow Evaluation Session Time Visit Start Time 13:35 Visit Stop Time 14:15 Total Visit Minutes 40 Visit Information Visit Number 1 Plan of Care Dates 05/23/24-09/20/24 Insurance Information Medicare Referral Referring Provider Dr. Dawson Don Reason for Referral Pharyngeal dysphagia Setting Assessment Location Outpatient Care Visit Type Note Type Initial evaluation Next Note Type Next Note Type Treatment Note Patient Information Identification Type Name History Harsh Galeana is an 84-year- old male presenting for a clinical swallow evaluation. He was referred by Dr. Dawson Don, ENT, for symptoms of pharyngeal dysphagia. Onset of about 10-15 years ago. The pt experiences a sticking sensation primarily with solids in the general area of the larynx. He occasionally coughs when swallowing both liquids and solids. Additionally, he coughs after swallowing, which brings up partially chewed food. He expressed that pills often get stuck in his throat, though clear with liquid wash. He reported undergoing a hiatial hernia repair about 30 years ago. Pt had a Modified Barium Swallow Study (MBSS) at this hospital in 2020. Per report, Patient has moderate pharyngeal dysphagia characterized by incomplete epiglottic inversion, incomplete laryngeal vestibular closure, and significant pharyngeal residue . This resulted in one episode of penetration of thin liquid via teaspoon (PAS scale score of 2) and trace aspiration during consecutive cup sips of thin liquid (PAS scale score of 7). Patient responded to aspiration with a delayed cough which was not successful in ejecting contrast from airway. The following strategies were attempted to eliminate aspiration and pharyngeal residue: chin tuck, effortful swallow, double- swallow. All strategies were successful in eliminating aspiration and decreasing pharyngeal residue; however, residue was not completely eliminated with any strategies attempted. Pt reported that he attended a few speech therapy treatment sessions at [facility], though stopped attending when symptoms did not resolve. The pt reported he was hospitalized for fluid in lungs about three years ago, though uncertain if dx was PNA . Pt denies GERD and esophageal disorders. Current diet includes regular diet, thin liquids, and pills with liquid wash. Pt reported he has lost 5-6 lbs in the last 6 months. Subjective Observations Pt arrived to the session on time. He was alert and oriented. He was able to respond to case history questions without difficulty. Reported by Patient/Caregiver Pain/Discomfort No Other Symptoms Coughing,Difficulty swallowing liquids,Difficulty swallowing pills,Difficulty swallowing solids,Food gets stuck,Weight loss Current Diet Regular (IDDSI 7) Baseline Feeding Method Independent in self-feeding Type of Patient Questionnaire (e.g., EAT Pt scored 13/40 on EAT-10, -10, MDADI, etc.) indicative of need for further assessment The IDDSI Framework Protocol: IDDSI.1 Objective Assessment Mental Status Alert,Responsive,Cooperative Oral Integrity WFL Dentition Within normal limits,Upper dentures/partials Lip Function Within normal limits Observation of Lips at Rest Symmetrical Pucker Within normal limits Lip Retraction Within normal limits Alternating Pucker/Lip Retraction Within normal limits Tongue Function Within normal limits Observations of Tongue at Rest Within normal limits Tongue Protrusion Within normal limits Tongue Retraction Within normal limits Tongue Lateralization Within normal limits Jaw Function Within normal limits Observation of Jaw at Rest Within normal limits Jaw Opening Within normal limits Jaw Closing Within normal limits Jaw Lateralization Within normal limits Jaw Protrusion Within normal limits Jaw Retraction Within normal limits Hard/Soft Palate Function Within normal limits Observations of Hard/Soft Palate Within normal limits Nasality Within normal limits Respiratory Sufficiency Within normal limits Food and Liquid Trials Position During Assessment Upright (90 degrees) Liquids Trialed Thin (IDDSI 0) Solid Trials Purred (IDDSI 4),Soft & Bite- sized (IDDSI 6),Regular (IDDSI 7) Administration Type Cup single sip,Cup consecutive sips,Straw,Self-feeding Oral Impairment Within normal limits Oral Phase Comments Oral phase is WNL. Good containment; normal, rotary mastication. AP transport and manipulation appear to be WNL. No abnormal oral residue observed. Pharyngeal Impairment Moderately impaired Pharyngeal Phase Comments Swallow trigger timing appears to be WNL. Excellent laryngeal elevation and anterior propulsion via palpation. Immediate strong cough with sip of thin liquid via straw. No overt s/sx of aspiration with single and sequential sips of thin liquid via cup. Throat clear noted during sequential sips of thin liquid via cup which may be indicative of laryngeal penetration. No overt s/sx of aspiration throughout all trials of solids. Pt reported no sticking sensation during consumption of liquids or solids. He did utilize liquid wash during trial of regular texture, though denied sticking sensation. Fatigue/Endurance Endurance WNL The IDDSI Framework Protocol: IDDSI.1 Findings Swallowing Function Pharyngeal phase dysphagia Severity of Swallow Impairment Mildly-moderately impaired Contributing Factors to Swallow Impaired airway protection, Impairment Excessive pharyngeal residue Prognosis Good Based on Cognitive status,Family support Comment Concerns for aspiration is moderate given the the fact that he demonstrated laryngeal penetration and aspiration of thin liquids on MBSS in 2020. Additionally, he demonstrated overt s/sx of aspiration during CSE today, which is consistent with his report. Silent aspiration cannot be ruled out without instrumental assessment. With any dysphagia aside, research suggests laryngeal aspiration alone is not the sole cause of an aspiration pneumonia, though rather a combination of aspiration, poor oral health, and compromised immune system /health status. The pt presents with mild- moderate pharyngeal dysphgia, likely 2/2 generalized muscular weakness associated with age and pharyngeal impairments visualized on MBSS in 2020 leading to overt s/sx of laryngeal penetration and aspiration. A follow-up MBS is recommended to further evaluate current swallowing function, to compare to previous MBS as baseline, and to guide POC. Impact on Safety and Functioning Risk for aspiration,Risk for inadequate nutrition/hydration Recommendations Instrumental Assessment Yes Swallowing Treatment Yes Frequency Once a week (pending MBSS results) Duration 3 months Recommended Solids Regular (IDDSI 7) Recommended Liquids Thin (IDDSI 0) Safety Precautions/Swallowing Remain upright (90 degrees) Recommendations during all oral intake,Upright position at least 30 minutes after meals,Small bites and sips when eating,Slow rate; swallow between bites, Alternate liquids and solids Medication Recommendations Whole in Carrier,One at a Time Education Patient/Caregiver Education Patient expressed understanding of evaluation, Patient expressed agreement with goals & treatment plans Goals Short-term Goals 1. Patient will complete MBSS to further assess swallowing pathophysiology and next steps in POC. 05/23/24: Provided education re: recommendation and patient agreeable to plan. CAMERA SUPERVISOR to contact referring provider re: order. 2. Patient will perform exercises independently to improve strength and coordination of pharyngeal musculature to improve swallow function and reduce pharyngeal residue. 05/23/24: Pending MBSS results . Long-term Goals Patient will safely consume regular diet and thin liquids without pharyngeal sticking sensation and overt s/sx of laryngeal penetration or aspiration.
--- NOTE | 2024-05-23 14:59 | ST.OPPOC ---
Physical, Occupational & Speech Therapy At [facility] Visit Care Team Role Provider Type Jamilah West DO Primary Care Provider Non-Staff Address: [address] [facility] [address], [place], [address] Dawson Don MD Attending Provider Physician Referring Provider Address: [address] [place] [address], [address] Speech Pathology Plan of Care Plan of Care Dates 05/23/24-09/20/[address] Dawson Don Patient History Harsh Galeana is an 84-year-old male presenting for a clinical swallow evaluation. He was referred by Dr. Dawson Don, ENT, for symptoms of pharyngeal dysphagia. Onset of about 10-15 years ago. The pt experiences a sticking sensation primarily with solids in the general area of the larynx. He occasionally coughs when swallowing both liquids and solids. Additionally , he coughs after swallowing, which brings up partially chewed food. He expressed that pills often get stuck in his throat, though clear with liquid wash. He reported undergoing a hiatial hernia repair about 30 years ago. Pt had a Modified Barium Swallow Study (MBSS) at this hospital in 2020. Per report, Patient has moderate pharyngeal dysphagia characterized by incomplete epiglottic inversion, incomplete laryngeal vestibular closure, and significant pharyngeal residue. This resulted in one episode of penetration of thin liquid via teaspoon (PAS scale score of 2) and trace aspiration during consecutive cup sips of thin liquid (PAS scale score of 7). Patient responded to aspiration with a delayed cough which was not successful in ejecting contrast from airway. The following strategies were attempted to eliminate aspiration and pharyngeal residue: chin tuck, effortful swallow, double-swallow. All strategies were successful in eliminating aspiration and decreasing pharyngeal residue; however, residue was not completely eliminated with any strategies attempted. Pt reported that he attended a few speech therapy treatment sessions at [facility], though stopped attending when symptoms did not resolve. The pt reported he was hospitalized for fluid in th lungs about three years ago, though uncertain if dx was PNA. Pt denies GERD and esophageal disorders. Current diet includes regular diet, thin liquids, and pills with liquid wash. Pt reported he has lost 5-6 lbs in the last 6 months. MBS Comments Patient has moderate pharyngeal dysphagia characterized by incomplete epiglottic inversion , incomplete laryngeal vestibular closure, and significant pharyngeal residue. BIOMEDICAL ANALYTICAL SCIENTIST reviewed immediate findings with patient and provided verbal education on aspiration precautions and compensatory strategies as well as importance of oral hygiene in decreasing risk of developing aspiration pneumonia. Patient would benefit from outpatient therapy to receive further education regarding his impairment and discuss ways to proceed (diet modification, strengthening exercises, etc.) as well as risks/benefits associated with these decisions. Short-term Goals 1. Patient will complete MBSS to further assess swallowing pathophysiology and next steps in POC . 05/23/24: Provided education re: recommendation and patient agreeable to plan. BIOMEDICAL ANALYTICAL SCIENTIST to contact referring provider re: order. 2. Patient will perform exercises independently to improve strength and coordination of pharyngeal musculature to improve swallow function and reduce pharyngeal residue. 05/23/24: Pending MBSS results. Long-term Goals Patient will safely consume regular diet and thin liquids without pharyngeal sticking sensation and overt s/sx of laryngeal penetration or aspiration. Comment: Electronically Signed by: ADILENE Woodward 05/23/24 0069 If you are in agreement with this Plan of Care, please return a signed and dated copy. I have reviewed this Plan of Care and certify that the skilled therapy services above are required to meet the patient?s needs. Physician Signature Date Printed Name and Credentials Clinical Instructor Signature Printed Name and Credentials
--- NOTE | 2024-05-23 15:09 | ST-OP ANOTE ---
Physical, Occupational & Speech Therapy At [facility] Speech Therapy Note POC sent to pt's PCP (Jamilah West) and referring provider (Dawson Don, ENT). Message sent to Dr. Don requesting MBSS order.
--- NOTE | 2024-07-30 09:48 | ST-OP ANOTE ---
Physical, Occupational & Speech Therapy At [facility] Speech Therapy Note HUMAN RESOURCES ASSISTANT called pt and inquired re: completion of MBSS as discussed during evaluation on 05/23/24. Pt reported he has not completed MBSS yet, though has changed providers in the meantime. HUMAN RESOURCES ASSISTANT sent POC to current provider JODEE Kinsey, at [facility], and requested order for MBSS. Cancel all treatment appointments until MBSS completed as it will inform POC. Pt expressed understanding of plan. Will follow-up as needed.
--- NOTE | 2024-09-21 13:35 | ST.OPDC.SWTH ---
Visit Care Team Role Provider Type Jamilah West DO Primary Care Provider Non-Staff Specialty: Family Practice Address: [address] [address], [place], [address] Email: Dawson Don MD Attending Provider Physician Referring Provider Specialty: Ear, Nose, Throat Address: [address] [place] [address], [address] Email: [email or web address] Discharge completed. Pt has not followed up on MBSS recommendation provided following clinical swallow evaluation on 05/23/24. Recommend pt request new order for GRAIN TRIMMER services from PCP if he would like to pursue swallowing treatment.
== END 2024-09-26 10:29 | disposition home or self-care (01) ==
LOC: SP 12:58
PROVIDERS: PCP Family Medicine; Referring Provider Otolaryngology; Visit Provider Otolaryngology
DX: R13.13 Dysphagia, pharyngeal phase (principal)
CPT/HCPCS: 92610

== ENCOUNTER 2024-10-22 11:09 | Emergency (ER) | payer MEDICARE, OTHER, SELFPAY ==
[2022-02-12 22:06] VITALS: BMI 24.4
[2024-10-22] VITALS (9 sets, daily range): BP systolic 107–126; BP diastolic 56–64; PULSE 58–80; RESP 17–23; TEMP 37.1; O2SAT 93–95; BMI 23.0
--- NOTE | 2024-10-22 11:22 | DI.RAD.S_ITS ---
PROCEDURE: XR CHEST 1V INDICATIONS: Chest Pain TECHNIQUE: One view of the chest was acquired. COMPARISON: [facility], CR, XR CHEST 1V, 01/22/2021, 7:41. [facility], CR, XR CHEST 1V, 01/22/2021, 5:22. FINDINGS AND IMPRESSION: On this single view study, left lung base possible trace effusion and opacity are present, similar compared to 202 imaging. No new consolidation or drainable effusion. Normal heart size and unchanged mediastinal contours. Dextrocardia. Sternotomy wires. Degenerative osseous changes. Dictated by: Mason Rosado M.D. on 10/22/2024 at 11:50 Approved by: Mason Rosado M.D. on 10/22/2024 at 11:51
--- NOTE | 2024-10-22 11:22 | EKG_ITS ---
[address] [address] [address], [place] [address] Test Date: 2024-10-22 Pat Name: Harsh Galeana Department: Room: Gender: Male Clinician Oncology: norberto : 1940 Requested By: Order Number: [id number] Reading MD: Reilly Webber MD Measurements Intervals [place] Rate: 81 P: 76 CO: 236 QRS: 139 QRSD: 82 T: 131 QT: 402 QTc: 466 Interpretive Statements Sinus rhythm with 1st degree AV block Anterolateral infarct , age undetermined Electronically Signed On 10-22-2024 17:46:42 PDT by Reilly Webber MD
--- NOTE | 2024-10-22 11:49 | ED_ITS ---
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 Patient states he was had some occasional episodes of discomfort but notes that about 7:00 a.m. this morning started having right- sided chest pain that does not radiate states it waxes and wanes. Patient states this feels similar to when he had his aneurysm about 10 or 12 years ago. Patient states nothing makes it better or worse. He states he was mostly just been resting today. He was occasionally had some twinges in the past that is similar but not persistent like this. He denies any syncope. He denies any fevers chills cold cough or congestion. He states he always feels short of breath. He denies any coughing up of blood. Denies any new swelling in his extremities. Denies any diaphoresis. Denies any nausea or vomiting. Patient states no rash or skin changes. Home medications are rosuvastatin metoprolol and losartan he was states no aspirin or blood thinners. States that when he had his aneurysm repair they also repaired 1 of his aortic valves. States his only allergies to foam tape. Former smoker, 1 beer daily, no recreational drugs. bIis [place] his is primary care physician. 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 Patient had his surgery at [facility] states his initial surgeon is no longer there. Related Data Home Medications ?Medication ?Instructions ?Recorded ?Confirmed atorvastatin 80 mg tablet 80 mg PO QPM #90 tabs 02/12/22 latanoprost 0.005 % eye drops 1 drp EYE-BOTH ONCE HS # 7 mL 06/22/18 02/12/22 losartan 50 mg tablet 50 mg PO DAILY #90 tabs 06/0302/12/22 metoprolol tartrate 25 mg tablet 25 mg PO BID #180 tab s 06/22/18 02/12/22 Previous Rx's ?Medication ?Instructions ?Recorded hydrocodone 5 mg-acetaminophen 325 1 tab PO Q6H PRN pa in #10 tabs 10/22/24 mg tablet Allergies Allergy/AdvReac Type Severity Reaction Status Date / Time silver sulfadiazine (From Allergy Unknown Verified 10/07/19 20:48 Silvadene) Review of Systems Review of Systems ROS Unobtainable: All systems reviewed & are unremarkable except as noted in HPI and below Patient History Medical History Hyperlipidemia Essential hypertension Surgical History History of Krista fundoplication Family History Mother Hypertension Father Cancer Social History household members: spouse Smoking Status: Never smoker alcohol intake: current Smoking Status: Never smoker alcohol intake frequency: holidays/special occasions only Exam Narrative Exam Narrative: GENERAL: Alert and oriented x three, elderly male in mild distress. HEENT: Head normocephalic, atraumatic, EOMI, pupils reactive, face symmetric, moist mucous membranes NECK: Supple, full range of motion CARDIOVASCULAR: Regular rate and rhythm without murmurs, rubs or gallops. no JVD, no edema bilateral lower extremity changes. RESPIRATORY: Breath sounds equal bilaterally, no wheezes rales or rhonchi. ABDOMEN: Soft, nontender. Normoactive bowel sounds all 4 quadrants. No guarding or rebound, rigidity, no mass : No CVA tenderness EXTREMITIES: Normal range of motion, no clubbing or edema. Neurovascularly intact NEUROLOGICAL: Cranial nerves II through XII grossly intact. Moving all extremities SKIN: Warm, dry, no petechiae, no rashes or lesions. Initial Vital Signs Initial Vital Signs: Vital Signs Pulse Rate 80 10/22/24 11:15 Respiratory Rate 19 10/22/24 11:15 Blood Pressure 125/62 10/22/24 11:15 Pulse Oximetry 94 10/22/24 11:15 Oxygen Delivery Method Room Air 10/22/24 11:15 Course Orders Ordered: ED Orders 10/22/24 11:22 XR chest 1V Stat EKG-12 Lead Stat 10/22/24 11:48 Complete Blood Count AUTO DIFF Stat Comprehensive Metabolic Panel Stat Lipase Stat Magnesium Stat NT-proBNP (BNP-Adult 18+) Stat PTT Partial Thromboplastin Ed Stat Prothrombin Time INR Stat Troponin & CK Cardiac Panel Stat 10/22/24 12:03 CT angio chest abdomen pelvis Stat 10/22/24 13:55 Trop I [Troponin I] Stat Discontinued Medications Sodium Chloride (Normal Saline 0.9%) 1,000 mls @ 125 mls/hr IV CONT PAT Last Infusion: 10/22/24 16:30 Dose: Infused Documented By: Admin: 10/22/24 12:32 Dose: 125 mls/hr Documented By: ES Morphine Sulfate (Morphine 4 Mg/Ml Inj) 4 mg IV NOW ONE Stop: 10/22/24 11:49 Last Admin: 10/22/24 12:26 Dose: 4 mg Documented By: ES Vital Signs Vital signs: Vital Signs - 8 hr 10/22/24 13:55 10/22/24 14:00 10/22/24 14:01 Pulse Rate 58 L 58 L Respiratory Rate 19 22 Blood Pressure 107/60 118/58 L Pulse Oximetry 94 93 Oxygen Delivery Method 10/22/24 14:01 10/22/24 14:30 10/22/24 14:30 Pulse Rate 58 L 59 L Respiratory Rate 23 17 Blood Pressure 118/58 L Pulse Oximetry 93 93 Oxygen Delivery Method 10/22/24 15:00 10/22/24 15:00 10/22/24 15:30 Pulse Rate 59 L 59 L Respiratory Rate 20 17 Blood Pressure 126/64 Pulse Oximetry 95 94 Oxygen Delivery Method Room Air 10/22/24 15:30 10/22/24 16:00 10/22/24 16:00 Pulse Rate 59 L Respiratory Rate 21 Blood Pressure 120/56 L 120/60 Pulse Oximetry 93 Oxygen Delivery Method Room Air MDM - Chest Pain Lab Data 10/22/24 11:48 10/22/24 11:48 Labs: Lab Results 10/22/24 10/22/24 Range/Units 11:48 13:55 WBC 6.4 (4.5-11.0) X10^3/uL RBC 4.58 (4.5-5.9) X10^6/uL Hgb 14.6 (13.5-17.5) g/dL Hct 44.1 (41-53) % MCV 96.4 (80-100) fL MCH 32.0 (26-34) PG MCHC 33.2 (30-36) % RDW 14.3 (11.6-14.8) % Plt Count 215 (150-400) X10^3/uL Neut % (Auto) 58.3 (50-75) % Lymph % (Auto) 29.6 (25-40) % Grady % (Auto) 10.1 (3-14) % Eos % (Auto) 1.2 L (2-4) % Baso % (Auto) 0.8 (0-2) % Neut # (Auto) 3700 (4400-7854) /uL Lymph # (Auto) 1900 (9825-4447) /uL Grady # (Auto) 600 (0-900) /uL Eos # (Auto) 100 (0-450) /uL Baso # (Auto) 100 (0-100) /uL PT 12.6 H (9.4-12.5) SECONDS INR 1.1 (0.9-1.3) APTT 35 (25.1-36.5) SECONDS Sodium 137 (137-145) mmol/L Potassium 4.2 (3.4-5.1) mmol/L Chloride 105 (98-107) mmol/L Carbon Dioxide 25 (22-32) mmol/L BUN 19 (9-20) mg/dL Creatinine 1.11 (0.66-1.25) mg/dL Estimated GFR > 60 (>60) mL/min BUN/Creatinine Ratio 17.1 (6-22) Glucose 102 H (70-99) mg/dL Calcium 9.1 (8.4-10.2) mg/dL Magnesium 2.2 (1.6-2.3) mg/dL Total Bilirubin 1.2 (0.2-1.3) mg/dL AST 26 (17-59) IU/L ALT 20 (<50) IU/L Alkaline Phosphatase 74 (38-126) U/L Total Creatine Kinase 56 (55-170) U/L Troponin I < 0.012 < 0.012 (0.01-0.034) ng/mL NT-Pro-B Natriuret Pep 217 (<450) pg/mL Total Protein 6.7 (6.3-8.2) g/dL Albumin 4.2 (3.5-5.0) g/dL Globulin 2.5 (1.7-4.1) g/dL Albumin/Globulin Ratio 1.7 (1.0-2.8) Lipase 237 (23-300) U/L ECG Data Attestation: I personally reviewed and interpreted this ECG as follows: Prior ECG tracings: available for review Interpretation: Sinus rhythm first-degree AV block rate 81 IA 236 QRS 82 QTC of [address] elevation depression noted. Patient has prior from 02/12/2022 has not nonspecific change of that 1 had quite a bit of PVCs ectopy. MDM Narrative Medical decision making narrative: Sinus rhythm first-degree AV block no acute ST changes. Labs labs show normal white count hemoglobin and platelets, INR is 1.1. Electrolytes are appropriate BUN and creatinine is normal, glucose is 102 LFTs are negative troponins less than 0.012 with a BNP of 217. Repeat troponin is less than 0.012 Chest x-ray left lung possible trace effusion opacity present similar compared to 202 no new consolidation or effusion. Normal heart size unchanged mediastinal contours dextrocardia. Sternotomy wires degenerative osseous changes. CT angio chest abdomen pelvis postsurgical changes of the aortic root extending to the aortic arch compared to prior imaging there are 2 subcentimeter outpouching of the arch favored to represent postsurgical changes appear minimally more prominent than 2020 imaging vascular follow up suggested given reported history. No acute dissection flap identified. Similar aneurysmal dilation of the sort Juanita up to 5.2 cm coronary artery calcifications also seen. Situs inversus. Patient had nitro sublingual EN route with no change. Patient received morphine which felt much better. Spoke with coordinator at [id number]. Will make sure images received and page out there surgeon. Spoke with Dr. Bland CVT surgery at [facility]. Reviewed findings, he reviewed patient images. He states are very minimal could be postsurgical, he would treat these more expectantly would not recommend immediate surgical intervention and would even potentially discussed stent placement but would be reluctant to pursue this aggressively. He would recommend follow up in the clinic with repeat CT imaging within a week. Did give contact to follow up for the patient to call at [phone] if patient would be interested in following up. We did discuss patient expressed that he would be interested in surgical intervention if it was offered. Spoke with cardiology Dr. Calderón, cardiology be happy to see patient was an outpatient. She did review the patient's chart. Suspicion for ACS is lower. Patient's last visit was a year ago we would like patient to call to set up short term follow up. Spoke with patient and family at bedside continues to feel improved we will do a short course of oral pain medication give contact a follow up with CVT surgery at but also with Cardiology. Discussed strict return precautions patient and family feel comfortable with this. Discharge Plan Departure Patient Disposition: Home Clinical Impression: Chest pain Instructions: DI for Chest Pain Activity Restrictions/Additional Instructions: Follow up with CVT surgery at [facility]. Your imaging showed 2 small subcentimeter areas at the aortic arch that show a small amount of out pouch but these were also visualized on your 2020 imaging spoke with surgery who did not feel that you need an emergent surgery but we would like to follow up with you in the next week for repeat imaging and discussion about whether you would require intervention. Their contact number is [phone], please call today to set up an appointment. I also spoke with Cardiology, call today to set up a follow up appointment. You can take oral pain medication as prescribed. This medication can make you sleepy do not drive, perform hazardous activities or make any major decisions while taking it. This medication will make you constipated please take a stool softener (Miralax) once to twice daily until stools are soft and regular. [facility]. Please return for new or worsening chest discomfort, lightheadedness or passing out, sweating, nausea or vomiting, new swelling of your extremities or other new or concerning changes. Prescriptions: New hydrocodone-acetaminophen 5-325 mg tablet 1 tab PO Q6H PRN (Reason: pain) Qty: 10 0RF No Action atorvastatin 80 mg tablet 80 mg PO QPM Qty: 90 losartan 50 mg tablet 50 mg PO DAILY Qty: 90 metoprolol tartrate 25 mg tablet 25 mg PO BID Qty: 180 latanoprost 0.005 % drops 1 drp EYE-BOTH ONCE HS Qty: 7 Referrals: Jamilah West DO [Primary Care Provider, Family Practice] Stand Alone Forms: Patient Portal/API
[2024-10-22 12:01] LABS: Add Manual Diff / Slide Review NO; Basophils Absolute Auto 100 /uL (0-100); Basophils Percent Auto 0.8 % (0-2); Eosinophils Absolute Auto 100 /uL (0-450); Eosinophils Percent Auto 1.2 % (2-4); Hematocrit 44.1 % (41-53); Hemoglobin 14.6 g/dL (13.5-17.5); Lymphocytes Absolute Auto 1900 /uL (1100-4500); Lymphocytes Percent Auto 29.6 % (25-40); Mean Corpuscular HGB Conc 33.2 % (30-36); Mean Corpuscular Volume 96.4 fL (80-100); Monocytes Absolute Auto 600 /uL (0-900); Monocytes Percent Auto 10.1 % (3-14); Neutrophils Absolute Auto 3700 /uL (1500-7000); Neutrophils Percent Auto 58.3 % (50-75); Platelet Count 215 X10^3/uL (150-400); Red Blood Cell Count 4.58 X10^6/uL (4.5-5.9); Red Cell Distribution Width 14.3 % (11.6-14.8); White Blood Cell Count 6.4 X10^3/uL (4.5-11.0)
--- NOTE | 2024-10-22 12:03 | DI.CT.S_ITS ---
PROCEDURE: CT ANGIO CHEST ABDOMEN PELVIS INDICATIONS: chest pain, situs inversus feels like his prior aneurysm TECHNIQUE: Precontrast 5 mm thick sections acquired from the lung apices to the iliac crests. After the administration of intravenous contrast, 2.5 mm thick sections again acquired from the lung apices to the iliac crests. Maximum intensity projection (MIP) oblique sagittal and coronal reformats were then acquired. For radiation dose reduction, the following was used: automated exposure control. COMPARISON: [facility], CT, CT ABDOMEN PELVIS W CON, 02/12/2022, 19:33. [facility], CT, CT ANGIO CHEST ABDOMEN PELVIS, 10/07/2019, 21:29. FINDINGS: Image quality: Diagnostic Lungs and pleura: Scattered atelectasis. No dense airspace disease. Scattered areas of scarring also seen particularly at the lung apices. No pneumothorax or hemothorax. Mediastinum, heart, and esophagus: Situs inversus. There are coronary calcifications. Postsurgical changes of the aortic root and ascending aorta. Postsurgical changes also seen at the arch. Tiny outpouchings are present (5/54 and 5/55, /), which are minimally more prominent than imaging from 2020. Similar aneurysmal dilation of the aorta, greatest diameter measuring 5.2 cm in the ascending portion. No acute dissection. Mild atherosclerotic calcifications of the arch and descending aorta. Patent great arch vessels, with similar postsurgical changes. No enlarged lymph nodes by size criteria. Trace hiatal hernia. Chest wall and thyroid: Unremarkable Liver: Multiple hypoattenuating liver lesions again seen, probably cysts. Subcentimeter lesions however are too small to characterize. Gallbladder and biliary system: Nondilated biliary system. Gallbladder is unremarkable Pancreas: No ductal dilation Spleen: Nonenlarged Adrenals: No discrete nodules on the left. Similar right-sided thickening Kidneys: No solid renal mass. Nonobstructing small bilaterally are present bilaterally. No hydronephrosis. Vessels and lymph nodes: Atherosclerotic calcifications of the aorta and its branches. No dissection flap is seen. No aneurysmal dilation. Mildly ectatic common iliac arteries, similar to prior Mildly ectatic infrarenal abdominal aorta measuring up to 2.6 cm. No enlarged lymph nodes by size criteria Bowel and peritoneum: Small hiatal hernia. No small bowel obstruction. No drainable abscess or ascites Nondilated appendix in the left lower quadrant. Body wall: Unremarkable Pelvis: Bladder is unremarkable. Prostate is unremarkable on limited CT evaluation. Bones: There are degenerative osseous changes. Old rib fractures are present. There are sternotomy wires. IMPRESSION: Postsurgical changes at the aortic root extending to the aortic arch. Compared to prior imaging, there are 2 subcentimeter outpouchings at the arch favored to represent postsurgical changes, but appear minimally more prominent than 2020 imaging. (See reference image , and ) Vascular follow-up is suggested given reported history. No acute dissection flap is identified. Similar aneurysmal dilation of the ascending aorta up to 5.2 cm. Coronary calcifications also seen. Situs inversus. Other nonvascular findings above. Dictated by: Mason Rosado M.D. on 10/22/2024 at 13:00 Approved by: Mason Rosado M.D. on 10/22/2024 at 13:18
[2024-10-22 12:08] LABS: INR 1.1 (0.9-1.3); Prothrombin Time 12.6 SECONDS (9.4-12.5)
[2024-10-22 12:11] LABS: PTT Partial Thromboplastin Tim 35 SECONDS (25.1-36.5)
[2024-10-22 12:14] LABS: Alanine Aminotransferase 20 IU/L (<50); Albumin 4.2 g/dL (3.5-5.0); Albumin Globulin Ratio 1.7 (1.0-2.8); Alkaline Phosphatase 74 U/L (38-126); Aspartate Aminotransferase 26 IU/L (17-59); BUN Creatinine Ratio 17.1 (6-22); Bilirubin Total 1.2 mg/dL (0.2-1.3); Blood Urea Nitrogen 19 mg/dL (9-20); Calcium 9.1 mg/dL (8.4-10.2); Carbon Dioxide 25 mmol/L (22-32); Chloride 105 mmol/L (98-107); Creatine Kinase 56 U/L (55-170); Estimated Glomerular Filt Rate > 60 mL/min (>60); Globulin 2.5 g/dL (1.7-4.1); Glucose 102 mg/dL (70-99); HEMOLYSIS < 15 (0-50); Lipase 237 U/L (23-300); Magnesium 2.2 mg/dL (1.6-2.3); Potassium 4.2 mmol/L (3.4-5.1); Sodium 137 mmol/L (137-145); Total Protein 6.7 g/dL (6.3-8.2)
[2024-10-22 12:25] LABS: NT-proBNP (BNP-Adult 18+) 217 pg/mL (<450); Troponin I < 0.012 ng/mL (0.01-0.034)
[2024-10-22] MEDS: MORPHINE 4 MG/ML INJ IV (12:26)
[2024-10-22] MEDS: SODIUM CHLORIDE 0.9% 1,000 ML 125 ML IV (12:32)
[2024-10-22 14:28] LABS: Troponin I < 0.012 ng/mL (0.01-0.034)
== END 2024-10-22 16:31 | disposition home or self-care (01) ==
PROVIDERS: Emergency Provider Emergency Medicine; Family Provider Family Medicine; PCP Family Medicine
DX: R07.9 Chest pain, unspecified (principal); I44.0 Atrioventricular block, first degree; I10 Essential (primary) hypertension; I25.10 Atherosclerotic heart disease of native coronary artery without angina pectoris; Z86.79 Personal history of other diseases of the circulatory system; Z98.890 Other specified postprocedural states
CPT/HCPCS: 36415; 71045; 71275; 74174; 80053; 82550; 83690; 83735; 83880; 84484; 85025; 85610; 85730; 93005; 93010; 96361; 96374; 99284; J2270; Q9967